=== PATIENT | female | born 1945 | race Caucasian/White ===

== ENCOUNTER 2016-12-22 19:35 | Inpatient (IN) ==
[2016-12-22] MEDS: GLUCOSAMINE GTUBE SCH (22:13)
[2016-12-23 05:23] LABS: Basophils % 0.5 %; Eosinophils # 0.5 K/mcL (0.0-0.6); Eosinophils % 5.3 %; Hemoglobin 14.5 g/dL (11.5-15.4); Immature Granulocytes % 0.8 % (0-4); Lymphocytes # 1.2 K/mcL (0.6-4.6); Lymphocytes % 13.7 %; Mean Corpuscular Hemoglobin 29.2 pg (28.0-33.3); Mean Corpuscular Volume 88.5 fL (83.0-100.0); Mean Platelet Volume 11.6 fL (9.4-12.4); Monocytes # 0.7 K/mcL (0.0-1.3); Monocytes % 8.2 %; Neutrophils # 6.2 K/mcL (1.6-8.9); Platelet Count 296 K/mcL (140-400); Red Blood Count 4.97 M/mcL (3.82-4.97); Red Cell Distribution Width 14.6 % (11.5-14.5); Segmented Neutrophils % 71.5 %
[2016-12-23 05:28] LABS: INR 1.1; Prothrombin Time 11.7 Seconds (9.4-12.1)
[2016-12-23 05:31] LABS: Activated Partial Thrombo Time 31.5 Seconds (26.0-36.0)
[2016-12-23 05:43] LABS: BUN/Creatinine Ratio 35 (6-26); Blood Urea Nitrogen 23 mg/dL (7-20); Calcium 9.7 mg/dL (8.6-10.8); Carbon Dioxide 26 mEq/L (19-29); Chloride 102 mEq/L (98-109); Glucose 124 mg/dL (70-99); Osmolality,Calculated 293 (280-300); Potassium 4.3 mEq/L (3.5-4.5); Sodium 139 mEq/L (136-145); eGFR For African Americans > 60 (> 60); eGFR For Non-African Americans > 60 (> 60)
[2016-12-23] MEDS: *HR* Enoxaparin 40 MG/0.4 ML SYRINGE SQ SCH (05:44)
[2016-12-23] MEDS: GLUCOSAMINE GTUBE SCH ×2 (09:57→14:24)
[2016-12-23] MEDS: Aspirin 81 MG TAB.CHEW GTUBE SCH (09:57)
--- NOTE | 2016-12-23 11:31 | Internal Med History&Physical ---
Date of Encounter: 12/23/16 Time of Encounter: 11:29 Assessment and Plan (1) CVA (cerebral vascular accident) Current visit: Yes Status: Acute Asians here for rehabilitation status post significant CVA Qualifiers: CVA mechanism: occlusion Precerebral and cerebral artery: unspecified precerebral artery Qualified Code(s): I63.20 - Cerebral infarction due to unspecified occlusion or stenosis of unspecified precerebral arteries Internal Medicine - H&P: HPI Chief complaint: Significant CVA with significant deficits Admitted From: Hospital to Hospital Transfer Plans for Post Hospital Care: Home History of present illness: Ms. Rodriguez is a 71 year old female Patient had suffered a stroke with left hemiparesis and dysphagia Past Med Surg Social Fam HX - Past Medical History Medical history: arthritis, CVA, GERD, hyperlipidemia, hypertension Psychiatric history: anxiety, depression - Past Surgical History Surgical History: hysterectomy, other - Social History Smoking Status: Never smoker Smokeless Tobacco Status: No Alcohol use: none Drug use: none - Family History Brother Living Status: Hx Family Cancer: Yes Mother Living Status: Hx Family Cardiac Disorders: Yes Father Living Status: Hx Family Cardiac Disorders: Yes Internal Medicine - H&P: Meds Aspirin [Lo-Dose Aspirin EC] 81 mg GTUBE 12/22/16 [History] Atorvastatin Calcium [Lipitor] 80 mg GTUBE 12/22/16 [History] Gluc HCl/Csa/Collagen/Hyalur A [Glucosamine Chondroitin Cap] 2 cap GTUBE TID 10/31 [History] [place]-3 Acid Ethyl Esters [Lovaza] 1 gm GTUBE TID 12/22/16 [History] Omeprazole [PriLOSEC] 20 mg GTUBE BIDAC 12/22/16 [History] 3 Allergy/AdvReac Type Severity Reaction Status Date / Time No Known Allergies Allergy Verified 12/22/16 19:44 All Systems PM: A 10-system review of systems was performed and is negative for pertinent findings except as documented above in the HPI. - Constitutional Vitals: Temp Pulse Resp BP Pulse Ox 97.8 F 65 18 120/69 93 12/23/16 07:16 12/23/16 07:16 12/23/16 07:16 12/23/16 07:16 12/23/16 07:16 General appearance: Present: cooperative, no acute distress, answers questions appropriately - Head Head exam: Present: atraumatic, normal inspection, normocephalic - Neck Neck exam general surgery: Present: supple, trachea midline. Absent: lymphadenopathy - Respiratory Respiratory exam: Present: CTAB. Absent: accessory muscle use, rales, rhonchi, wheezes - Cardiovascular Cardiovascular exam: Present: RRR, +S1, +S2. Absent: diastolic murmur, gallop, rubs, systolic murmur - GI/Abdominal GI/Abdominal exam: Present: normal bowel sounds, soft, no peritoneal signs. Absent: distended, tenderness - Neurological Exam Neurological exam: Present: abnormal gait, CN II-XII intact, oriented X3, no focal deficits. Absent: pronater drift, facial droop, speech deficit Additional comments: Patient has a fairly dense left hemiparesis. Dysphasia and a half to follow up with PT Internal Med - H&P Results - Labs CBC & Chem 7: 12/23/16 04:40 12/23/16 04:40 Labs: Short CBC 12/23/16 Range/Units 04:40 WBC 8.7 (4.3-11.1) K/mcL Hgb 14.5 (11.5-15.4) g/dL Hct 44.0 (35.3-44.9) % Plt Count 296 (140-400) K/mcL Neutrophils # 6.2 (1.6-8.9) K/mcL BMP 12/23/16 04:40 Sodium 139 Potassium 4.3 Chloride 102 Carbon Dioxide 26 BUN 23 H Creatinine 0.66 Glucose 124 H Calcium 9.7 Lab appears to be safe.
[2016-12-24] MEDS: *HR* Enoxaparin 40 MG/0.4 ML SYRINGE SQ SCH (05:03)
[2016-12-24] MEDS: Aspirin 81 MG TAB.CHEW GTUBE SCH (08:42)
[2016-12-24 18:51] LABS: Hemoglobin A1C 6.1 %
[2016-12-25] MEDS: *HR* Enoxaparin 40 MG/0.4 ML SYRINGE SQ SCH (05:01)
[2016-12-25] MEDS: Aspirin 81 MG TAB.CHEW GTUBE SCH (09:07)
--- NOTE | 2016-12-25 09:22 | Internal Med Progress Note ---
Date of Encounter: 12/24/16 Time of Encounter: 16:55 - Assessment and plan (1) CVA (cerebral vascular accident) Current Visit: Yes Status: Acute Assessment and plan: Continue to work with therapists. Not ready for discharge yet. Qualifiers: CVA mechanism: occlusion Precerebral and cerebral artery: unspecified precerebral artery Qualified Code(s): I63.20 - Cerebral infarction due to unspecified occlusion or stenosis of unspecified precerebral arteries - Time Spent With Patient less than 15 minutes - Subjective Interval history: Would like to go home, otherwise no concern. Worked with therapists a lot today, so feeling a bit worn out. - Constitutional Vitals: Temp Pulse Resp BP Pulse Ox 98.1 F 86 16 117/69 90 12/25/16 09:05 12/25/16 09:05 12/25/16 09:05 12/25/16 09:05 12/25/16 09:05 General appearance: Present: cooperative, no acute distress, answers questions appropriately Exam: Gen: A&Ox3, NAD. HEENT: NCAT. Neck: No palpable lymphadenopathy or thyromegaly. CV: RRR, S1S2. No murmur. Capillary refill < 2 seconds. Pulm: CTAB. No crackles, wheezing, or rhonchi. Abd: (+)BS. NDNT. No guarding, rigidity, or rebound. Neuro: Left hemiplegia. Skin: No rash. Ext: No pitting edema. Internal Medicine: Result - Labs CBC & Chem 7: 12/23/16 04:40 12/23/16 04:40 Labs: reviewed. - ABG Interpretation ABG results: PT/INR, D-dimer PT 11.7 Seconds (9.4-12.1) 12/23/16 04:40 Consult Discharge Plan - Plan Referrals: Obed Martinez DO [Primary Care Provider] -
--- NOTE | 2016-12-25 11:46 | Internal Med Progress Note ---
Date of Encounter: 12/25/16 Time of Encounter: 11:30 - Assessment and plan (1) CVA (cerebral vascular accident) Current Visit: Yes Status: Acute Assessment and plan: Continue to work with therapists. Not ready for discharge yet. Qualifiers: CVA mechanism: occlusion Precerebral and cerebral artery: unspecified precerebral artery Qualified Code(s): I63.20 - Cerebral infarction due to unspecified occlusion or stenosis of unspecified precerebral arteries - Time Spent With Patient less than 15 minutes - Subjective Interval history: Doing well overall. Feeling a little quizzy in stomach, but does not feel she needs anything at this moment. - Constitutional Vitals: Temp Pulse Resp BP Pulse Ox 97.6 F 87 16 108/60 92 12/25/16 11:22 12/25/16 11:22 12/25/16 11:22 12/25/16 11:22 12/25/16 11:22 General appearance: Present: cooperative, no acute distress, answers questions appropriately Exam: Gen: A&Ox3, NAD. HEENT: NCAT. Neck: No palpable lymphadenopathy or thyromegaly. CV: RRR, S1S2. No murmur. Capillary refill < 2 seconds. Pulm: CTAB. No crackles, wheezing, or rhonchi. Abd: (+)BS. NDNT. No guarding, rigidity, or rebound. Neuro: Left hemiplegia. Skin: No rash. Ext: No pitting edema. Internal Medicine: Result - Labs CBC & Chem 7: 12/23/16 04:40 12/23/16 04:40 Labs: Reviewed. - ABG Interpretation ABG results: PT/INR, D-dimer PT 11.7 Seconds (9.4-12.1) 12/23/16 04:40 Consult Discharge Plan - Plan Referrals: Obed Martinez DO [Primary Care Provider] -
[2016-12-26] MEDS: *HR* Enoxaparin 40 MG/0.4 ML SYRINGE SQ SCH (04:50)
[2016-12-26 05:17] LABS: Basophils % 0.4 %; Eosinophils # 0.4 K/mcL (0.0-0.6); Eosinophils % 4.1 %; Hematocrit 44.1 % (35.3-44.9); Hemoglobin 14.8 g/dL (11.5-15.4); Immature Granulocytes % 0.4 % (0-4); Lymphocytes # 1.1 K/mcL (0.6-4.6); Lymphocytes % 11.2 %; Mean Corpuscular HGB Conc 33.6 g/dL (31.6-35.5); Mean Corpuscular Hemoglobin 29.3 pg (28.0-33.3); Mean Corpuscular Volume 87.3 fL (83.0-100.0); Mean Platelet Volume 12.2 fL (9.4-12.4); Monocytes # 0.9 K/mcL (0.0-1.3); Monocytes % 8.9 %; Neutrophils # 7.4 K/mcL (1.6-8.9); Platelet Count 334 K/mcL (140-400); Red Blood Count 5.05 M/mcL (3.82-4.97)
[2016-12-26 05:34] LABS: BUN/Creatinine Ratio 28 (6-26); Blood Urea Nitrogen 19 mg/dL (7-20); Calcium 9.7 mg/dL (8.6-10.8); Carbon Dioxide 25 mEq/L (19-29); Chloride 100 mEq/L (98-109); Glucose 233 mg/dL (70-99); Osmolality,Calculated 288 (280-300); Potassium 4.1 mEq/L (3.5-4.5); Sodium 134 mEq/L (136-145); eGFR For African Americans > 60 (> 60); eGFR For Non-African Americans > 60 (> 60)
[2016-12-26] MEDS: Aspirin 81 MG TAB.CHEW GTUBE SCH (09:21)
--- NOTE | 2016-12-26 13:24 | Internal Med Progress Note ---
Date of Encounter: 12/26/16 Time of Encounter: 13:22 - Assessment and plan (1) CVA (cerebral vascular accident) Current Visit: Yes Status: Acute Assessment and plan: Ratio is has a lack of cognitive processing due to significant strep Qualifiers: CVA mechanism: occlusion Precerebral and cerebral artery: unspecified precerebral artery Qualified Code(s): I63.20 - Cerebral infarction due to unspecified occlusion or stenosis of unspecified precerebral arteries - Time Spent With Patient less than 15 minutes - Subjective Interval history: Patient has had dense hemiparesis and is not cognizant of her deficits. Otherwise though she is awake alert oriented. Stroke is devastating. - Constitutional Vitals: Temp Pulse Resp BP Pulse Ox 98.4 F 82 16 134/80 93 12/26/16 07:46 12/26/16 07:46 12/26/16 07:46 12/26/16 07:46 12/26/16 07:46 General appearance: Present: cooperative, no acute distress, answers questions appropriately - Head Head exam: Present: atraumatic, normal inspection, normocephalic - Respiratory Respiratory exam: Present: CTAB. Absent: accessory muscle use, rales, rhonchi, wheezes - Cardiovascular Cardiovascular exam: Present: RRR, +S1, +S2. Absent: diastolic murmur, gallop, rubs, systolic murmur - GI/Abdominal GI/Abdominal exam: Present: normal bowel sounds, soft, no peritoneal signs. Absent: distended, tenderness Internal Medicine: Result - Labs CBC & Chem 7: 12/26/16 04:50 12/26/16 04:50 Labs: Short CBC 12/26/16 Range/Units 04:50 WBC 9.8 (4.3-11.1) K/mcL Hgb 14.8 (11.5-15.4) g/dL Hct 44.1 (35.3-44.9) % Plt Count 334 (140-400) K/mcL Neutrophils # 7.4 (1.6-8.9) K/mcL BMP 12/26/16 04:50 Sodium 134 L Potassium 4.1 Chloride 100 Carbon Dioxide 25 BUN 19 Creatinine 0.69 Glucose 233 H Calcium 9.7 Labs stable - ABG Interpretation ABG results: PT/INR, D-dimer PT 11.7 Seconds (9.4-12.1) 12/23/16 04:40 Consult Discharge Plan - Plan Referrals: Obed Martinez DO [Primary Care Provider] -
[2016-12-27] MEDS: *HR* Enoxaparin 40 MG/0.4 ML SYRINGE SQ SCH (04:14)
[2016-12-27] MEDS: Tetrahydrozoline 15 ML BOTTLE RIGHT EYE PRN (10:21)
[2016-12-27] MEDS: Aspirin 81 MG TAB.CHEW GTUBE SCH (10:21)
--- NOTE | 2016-12-27 10:43 | Internal Med Progress Note ---
Date of Encounter: 12/27/16 Time of Encounter: 10:41 - Assessment and plan (1) CVA (cerebral vascular accident) Current Visit: Yes Status: Acute Assessment and plan: As we mentioned significant CVA with a dense right hemiparesis. Qualifiers: CVA mechanism: occlusion Precerebral and cerebral artery: unspecified precerebral artery Qualified Code(s): I63.20 - Cerebral infarction due to unspecified occlusion or stenosis of unspecified precerebral arteries - Time Spent With Patient less than 15 minutes - Subjective Interval history: This is a pretty significant ischemic CVA with a very dense right hemiparesis. And the staff has been performing visitors and everyone is that of the left and have her look to the left and respond. She is alert and oriented - Constitutional Vitals: Temp Pulse Resp BP Pulse Ox 98.4 F 81 16 120/71 96 12/27/16 07:00 12/27/16 09:29 12/27/16 09:29 12/27/16 09:29 12/27/16 09:29 General appearance: Present: cooperative, no acute distress, answers questions appropriately - Head Head exam: Present: atraumatic, normal inspection, normocephalic - Neck Neck exam general surgery: Present: supple, trachea midline. Absent: lymphadenopathy - Respiratory Respiratory exam: Present: CTAB. Absent: accessory muscle use, rales, rhonchi, wheezes - Cardiovascular Cardiovascular exam: Present: RRR, +S1, +S2. Absent: diastolic murmur, gallop, rubs, systolic murmur Internal Medicine: Result - Labs CBC & Chem 7: 12/26/16 04:50 12/26/16 04:50 Labs: Labs okay - ABG Interpretation ABG results: PT/INR, D-dimer PT 11.7 Seconds (9.4-12.1) 12/23/16 04:40 Consult Discharge Plan - Plan Referrals: Obed Martinez DO [Primary Care Provider] -
[2016-12-28] MEDS: *HR* Enoxaparin 40 MG/0.4 ML SYRINGE SQ SCH (04:59)
--- NOTE | 2016-12-28 11:40 | Psychological Evaluation ---
Date of Encounter: 12/28/16 Time of Encounter: 11:30 History of Present Illness History of present illness: Ms. Rodriguez is a 71 year old female admitted to [facility] following a right CVA. Ms. Rodriguez was seen on this date to assess her current cognitive and emotional functioning. Past Medical History Medical history: Significant for HTN, hyperlipidemia, arthritis and GERD. - Psychiatric History Additional Psychiatric History: There is no history of psychiatric hospitalization or suicidal ideation. Ms. Rodriguez has a history of anxiety and depression which has been treated by her family physician with [facility]. It was unclear whether she has ever received outpatient counseling. Family Hx: Family history is positive for depression and she reported that her great grandfather committed suicide. Home Medications and Allergies Aspirin [Lo-Dose Aspirin EC] 81 mg GTUBE 12/22/16 [History] Atorvastatin Calcium [Lipitor] 80 mg GTUBE 12/22/16 [History] Gluc HCl/Csa/Collagen/Hyalur A [Glucosamine Chondroitin Cap] 2 cap GTUBE TID 10/31 [History] [place]-3 Acid Ethyl Esters [Lovaza] 1 gm GTUBE TID 12/22/16 [History] Omeprazole [PriLOSEC] 20 mg GTUBE BIDAC 12/22/16 [History] 3 Allergy/AdvReac Type Severity Reaction Status Date / Time No Known Allergies Allergy Verified 12/22/16 19:44 Social History - Social History Social History: Ms. Rodriguez and her have been for 53 years. They have three children (ages 50, 48 and 37). 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 Prior to this hospitalization, she reported that she spent her days reading, tweeting, watching [employer], searching on Facebook and reading her [employer] school lessons. Social support system consists of her , friends and neighbors. She reported that she had a daily routine at home and misses having this structure. - Tobacco Use Smoking Status: Never smoker - Alcohol Use Alcohol Use: none - Drug Use Drug Use: none Cognitive/Emotional Assessment - Cognitive Ability Additional Findings: Ms. Rodriguez was alert, attentive and fully oriented. Speech was clear, fluent and effective. Thought processes were goal-directed but at times she made confused statements. On measures of attention, sentence repetition, confrontational naming and mental arithmetic, she performed within the average range. She also performed within the normal range on a measures of abstract reasoning, auditory comprehension and delayed verbal recall. She did not exhibit problems with encoding, storage or retrieval of new verbal information after a brief delay. On a measure of social judgment, she performed within the severely impaired range. Level of awareness and insight into her physical functioning/deficits was impaired. - Emotional Status Additional Findings: Ms. Rodriguez was pleasant, cooperative and friendly. When this provider entered Ms. Rodriguez's room, she commented to her that this provider was her daughter and made other comments during this interview indicating some confusion. She described her mood as "pretty good" and denied feelings of sadness, irritability or anxiety. She acknowledged that she is experiencing neck, back and left leg pain. She also reported that her sleep is "fair" and noted problems falling and staying asleep. During this interview, mood appeared somber. Affect was flat. Assessment & Plan - Diagnosis (1) Other specified mental disorders due to known physiological condition - Treatment Plan Treatment Plan/Recommendations: Ms. Rodriguez exhibited signs of confusion and impaired awareness/insight into her current deficits/physical functioning. Mood appeared stable without signs of sadness or anxiety. She will be followed as indicated while she is a patient at [facility]. Procedures - Session Time Session Start Time: 11:30 Session Stop Time: 12:00
[2016-12-28] MEDS: Aspirin 81 MG TAB.CHEW GTUBE SCH (11:47)
[2016-12-29] MEDS: *HR* Enoxaparin 40 MG/0.4 ML SYRINGE SQ SCH (04:28)
[2016-12-29] MEDS: Tetrahydrozoline 15 ML BOTTLE RIGHT EYE PRN (04:35)
[2016-12-29] MEDS: Aspirin 81 MG TAB.CHEW GTUBE SCH (10:09)
--- NOTE | 2016-12-29 13:54 | Internal Med Progress Note ---
Date of Encounter: 12/29/16 Time of Encounter: 13:52 - Assessment and plan (1) CVA (cerebral vascular accident) Current Visit: Yes Status: Acute Assessment and plan: Patient is being worked with all modalities. PT OT TR and speech. She also has seen by the staff psychologist. Qualifiers: CVA mechanism: occlusion Precerebral and cerebral artery: unspecified precerebral artery Qualified Code(s): I63.20 - Cerebral infarction due to unspecified occlusion or stenosis of unspecified precerebral arteries - Time Spent With Patient less than 15 minutes - Subjective Interval history: This is a pretty significant ischemic CVA with a very dense right hemiparesis. And the staff has been performing visitors and everyone is that of the left and have her look to the left and respond. She is alert and oriented - Constitutional Vitals: Temp Pulse Resp BP Pulse Ox 97.7 F 75 18 118/62 96 12/29/16 07:00 12/29/16 11:54 12/29/16 11:54 12/29/16 11:54 12/29/16 11:54 General appearance: Present: cooperative, no acute distress, answers questions appropriately - Head Head exam: Present: atraumatic, normal inspection, normocephalic - Neck Neck exam general surgery: Present: supple, trachea midline. Absent: lymphadenopathy - Respiratory Respiratory exam: Present: CTAB. Absent: accessory muscle use, rales, rhonchi, wheezes Internal Medicine: Result - Labs CBC & Chem 7: 12/26/16 04:50 12/26/16 04:50 Labs: Lab is stable - ABG Interpretation ABG results: PT/INR, D-dimer PT 11.7 Seconds (9.4-12.1) 12/23/16 04:40 Consult Discharge Plan - Plan Referrals: Obed Martinez, [Primary Care Provider] -
[2016-12-30] MEDS: Tetrahydrozoline 15 ML BOTTLE RIGHT EYE PRN (01:57)
[2016-12-30] MEDS: *HR* Enoxaparin 40 MG/0.4 ML SYRINGE SQ SCH (04:10)
[2016-12-30] MEDS: Aspirin 81 MG TAB.CHEW GTUBE SCH (11:35)
--- NOTE | 2016-12-30 14:04 | Internal Med Progress Note ---
Date of Encounter: 12/30/16 Time of Encounter: 14:02 - Assessment and plan (1) CVA (cerebral vascular accident) Current Visit: Yes Status: Acute Assessment and plan: Patient is here for all modalities of rehabilitation due to severe ischemic CVA Qualifiers: CVA mechanism: occlusion Precerebral and cerebral artery: unspecified precerebral artery Qualified Code(s): I63.20 - Cerebral infarction due to unspecified occlusion or stenosis of unspecified precerebral arteries - Time Spent With Patient less than 15 minutes - Subjective Interval history: This is a pretty significant ischemic CVA with a very dense right hemiparesis. And the staff has been performing visitors and everyone is that of the left and have her look to the left and respond. She is alert and oriented. - Constitutional Vitals: Temp Pulse Resp BP Pulse Ox 97.8 F 79 18 119/64 93 12/30/16 07:35 12/30/16 07:35 12/30/16 07:35 12/30/16 07:35 12/30/16 07:35 General appearance: Present: cooperative, no acute distress, answers questions appropriately - Head Head exam: Present: atraumatic, normal inspection, normocephalic - Neck Neck exam general surgery: Present: supple, trachea midline. Absent: lymphadenopathy - Respiratory Respiratory exam: Present: CTAB. Absent: accessory muscle use, rales, rhonchi, wheezes - Cardiovascular Cardiovascular exam: Present: RRR, +S1, +S2. Absent: diastolic murmur, gallop, rubs, systolic murmur - Neurological Exam Neurological exam: Present: CN II-XII intact, oriented X3, no focal deficits. Absent: pronater drift, facial droop, speech deficit Additional comments: Not much change this point. Internal Medicine: Result - Labs CBC & Chem 7: 12/26/16 04:50 12/26/16 04:50 Labs: Lab looks good - ABG Interpretation ABG results: PT/INR, D-dimer PT 11.7 Seconds (9.4-12.1) 12/23/16 04:40 Consult Discharge Plan - Plan Referrals: Obed Martinez, [Primary Care Provider] -
[2016-12-30] MEDS: MOM Conc 10 ML UD.LIQ GTUBE SCH (21:35)
[2016-12-31] MEDS: *HR* Enoxaparin 40 MG/0.4 ML SYRINGE SQ SCH (05:35)
--- NOTE | 2016-12-31 09:50 | Internal Med Progress Note ---
Date of Encounter: 12/31/16 Time of Encounter: 09:48 - Assessment and plan (1) CVA (cerebral vascular accident) Current Visit: Yes Status: Acute Assessment and plan: Ding fine . Trying to sleep no acute distress in rheb Continue present treatment Qualifiers: CVA mechanism: occlusion Precerebral and cerebral artery: unspecified precerebral artery Qualified Code(s): I63.20 - Cerebral infarction due to unspecified occlusion or stenosis of unspecified precerebral arteries - Subjective Interval history: Seen for the first time as cross coverage She is doing fine now no acute issues in bed and trying to sleep Denies any SOB or chest pain - Constitutional Vitals: Temp Pulse Resp BP Pulse Ox 98.4 F 76 18 113/63 93 12/31/16 07:42 12/31/16 07:42 12/31/16 07:42 12/31/16 07:42 12/31/16 07:42 General appearance: Present: cooperative, pleasant, no acute distress, answers questions appropriately - Head Head exam: Present: atraumatic - Eye Eye exam: Present: EOMI, PERRL. Absent: scleral icterus Pupils: Present: PERRL - Neck Neck exam general surgery: Present: supple. Absent: tenderness, nuchal rigidity - Respiratory Respiratory exam: Present: CTAB. Absent: chest wall tenderness, respiratory distress, rhonchi, stridor, wheezes - Cardiovascular Cardiovascular exam: Present: RRR, +S1, +S2. Absent: irregular rhythm, JVD, tachycardia - GI/Abdominal GI/Abdominal exam: Present: normal bowel sounds, soft. Absent: distended, guarding, tenderness, no peritoneal signs Additional comments: Obese Soft BS + Internal Medicine: Result - Labs CBC & Chem 7: 12/26/16 04:50 12/26/16 04:50 - ABG Interpretation ABG results: PT/INR, D-dimer PT 11.7 Seconds (9.4-12.1) 12/23/16 04:40 Consult Discharge Plan - Plan Referrals: Obed Martinez DO [Primary Care Provider] -
[2016-12-31] MEDS: Aspirin 81 MG TAB.CHEW GTUBE SCH (10:44)
[2016-12-31] MEDS: MOM Conc 10 ML UD.LIQ GTUBE SCH (21:42)
[2016-12-31] MEDS: Tetrahydrozoline 15 ML BOTTLE RIGHT EYE PRN (21:53)
[2017-01-01] MEDS: Tetrahydrozoline 15 ML BOTTLE RIGHT EYE PRN (04:00)
[2017-01-01] MEDS: *HR* Enoxaparin 40 MG/0.4 ML SYRINGE SQ SCH (05:15)
--- NOTE | 2017-01-01 08:47 | Internal Med Progress Note ---
Date of Encounter: 01/01/17 Time of Encounter: 08:45 - Assessment and plan (1) CVA (cerebral vascular accident) Current Visit: Yes Status: Acute Assessment and plan: stable . in rehab . labs scheduled for tomorrow Give Tylenol for back pain regular dose for 24 hours Qualifiers: CVA mechanism: occlusion Precerebral and cerebral artery: unspecified precerebral artery Qualified Code(s): I63.20 - Cerebral infarction due to unspecified occlusion or stenosis of unspecified precerebral arteries (2) Hyperlipidemia Current Visit: Yes Status: Acute Assessment and plan: on meds stable no new change Qualifiers: Hyperlipidemia type: unspecified Qualified Code(s): E78.5 - Hyperlipidemia , unspecified - Subjective Interval history: Comparing of back pain lying on her side no other complains - Constitutional Vitals: Temp Pulse Resp BP Pulse Ox 97.7 F 73 18 132/70 96 01/01/17 07:59 01/01/17 07:59 01/01/17 07:59 01/01/17 07:59 01/01/17 07:59 General appearance: Present: cooperative, pleasant, no acute distress, answers questions appropriately - Head Head exam: Present: atraumatic - Eye Eye exam: Present: EOMI, PERRL Pupils: Present: PERRL - Neck Neck exam general surgery: Present: supple. Absent: tenderness, nuchal rigidity - Respiratory Respiratory exam: Present: CTAB. Absent: respiratory distress, rhonchi, stridor , wheezes - Cardiovascular Cardiovascular exam: Present: RRR, +S1, +S2. Absent: diastolic murmur, irregular rhythm, JVD, systolic murmur - GI/Abdominal GI/Abdominal exam: Present: normal bowel sounds, soft. Absent: distended, rebound, rigid - Neurological Exam Neurological exam: Present: alert, facial droop. Absent: speech deficit Additional comments: left side weakness no new change Internal Medicine: Result - Labs CBC & Chem 7: 12/26/16 04:50 12/26/16 04:50 - ABG Interpretation ABG results: PT/INR, D-dimer PT 11.7 Seconds (9.4-12.1) 12/23/16 04:40 Consult Discharge Plan - Plan Referrals: Obed Martinez DO [Primary Care Provider] -
[2017-01-01] MEDS: Aspirin 81 MG TAB.CHEW GTUBE SCH (10:00)
[2017-01-01] MEDS: MOM Conc 10 ML UD.LIQ GTUBE SCH (21:40)
[2017-01-02] MEDS: *HR* Enoxaparin 40 MG/0.4 ML SYRINGE SQ SCH (05:01)
[2017-01-02 05:22] LABS: Basophils % 0.6 %; Eosinophils # 0.3 K/mcL (0.0-0.6); Eosinophils % 5.5 %; Hematocrit 42.1 % (35.3-44.9); Hemoglobin 13.9 g/dL (11.5-15.4); Immature Granulocytes % 0.4 % (0-4); Lymphocytes # 1.3 K/mcL (0.6-4.6); Lymphocytes % 23.9 %; Mean Corpuscular Hemoglobin 29.4 pg (28.0-33.3); Mean Corpuscular Volume 89.2 fL (83.0-100.0); Mean Platelet Volume 11.4 fL (9.4-12.4); Monocytes # 0.5 K/mcL (0.0-1.3); Monocytes % 9.3 %; Neutrophils # 3.2 K/mcL (1.6-8.9); Platelet Count 323 K/mcL (140-400); Red Blood Count 4.72 M/mcL (3.82-4.97); Red Cell Distribution Width 15.2 % (11.5-14.5); Segmented Neutrophils % 60.3 %
[2017-01-02 05:35] LABS: BUN/Creatinine Ratio 27 (6-26); Blood Urea Nitrogen 19 mg/dL (7-20); Calcium 9.6 mg/dL (8.6-10.8); Carbon Dioxide 32 mEq/L (19-29); Chloride 99 mEq/L (98-109); Glucose 133 mg/dL (70-99); Osmolality,Calculated 294 (280-300); Potassium 3.6 mEq/L (3.5-4.5); Sodium 140 mEq/L (136-145); eGFR For African Americans > 60 (> 60); eGFR For Non-African Americans > 60 (> 60)
[2017-01-02] MEDS: Aspirin 81 MG TAB.CHEW GTUBE SCH (08:26)
--- NOTE | 2017-01-02 14:46 | Internal Med Progress Note ---
Date of Encounter: 01/02/17 Time of Encounter: 14:44 - Assessment and plan (1) CVA (cerebral vascular accident) Current Visit: Yes Status: Acute Assessment and plan: Patient had a very significant cerebrovascular accident with hemiplegia and is totally dependent. Please see PT OT and TR notes and speech. Qualifiers: CVA mechanism: occlusion Precerebral and cerebral artery: unspecified precerebral artery Qualified Code(s): I63.20 - Cerebral infarction due to unspecified occlusion or stenosis of unspecified precerebral arteries - Time Spent With Patient less than 15 minutes - Subjective Interval history: This is a pretty significant ischemic CVA with a very dense right hemiparesis. And the staff has been performing visitors and everyone is that of the left and have her look to the left and respond. She is alert and oriented. - Constitutional Vitals: Temp Pulse Resp BP Pulse Ox 97.4 F L 66 16 141/79 94 01/02/17 06:57 01/02/17 06:57 01/02/17 06:57 01/02/17 06:57 01/02/17 06:57 General appearance: Present: cooperative, pleasant, no acute distress, answers questions appropriately - Head Head exam: Present: atraumatic, normal inspection, normocephalic - Neck Neck exam general surgery: Present: supple, trachea midline. Absent: lymphadenopathy - Respiratory Respiratory exam: Present: CTAB. Absent: accessory muscle use, rales, rhonchi, wheezes - Cardiovascular Cardiovascular exam: Present: RRR, +S1, +S2. Absent: diastolic murmur, gallop, rubs, systolic murmur - Neurological Exam Neurological exam: Present: CN II-XII intact, oriented X3, no focal deficits. Absent: pronater drift, facial droop, speech deficit Additional comments: Not much change in terms of function. Internal Medicine: Result - Labs CBC & Chem 7: 01/02/17 04:50 01/02/17 04:50 Labs: Short CBC 01/02/17 Range/Units 04:50 WBC 5.3 (4.3-11.1) K/mcL Hgb 13.9 (11.5-15.4) g/dL Hct 42.1 (35.3-44.9) % Plt Count 323 (140-400) K/mcL Neutrophils # 3.2 (1.6-8.9) K/mcL BMP 01/02/17 04:50 Sodium 140 Potassium 3.6 Chloride 99 Carbon Dioxide 32 H BUN 19 Creatinine 0.70 Glucose 133 H Calcium 9.6 Stable at - ABG Interpretation ABG results: PT/INR, D-dimer PT 11.7 Seconds (9.4-12.1) 12/23/16 04:40 Consult Discharge Plan - Plan Referrals: Obed Martinez DO [Primary Care Provider] -
[2017-01-02] MEDS: MOM Conc 10 ML UD.LIQ GTUBE SCH (19:42)
[2017-01-03] MEDS: *HR* Enoxaparin 40 MG/0.4 ML SYRINGE SQ SCH (05:21)
[2017-01-03] MEDS: Aspirin 81 MG TAB.CHEW GTUBE SCH (09:30)
--- NOTE | 2017-01-03 13:19 | Internal Med Progress Note ---
Date of Encounter: 01/27/17 Time of Encounter: 14:08 - Assessment and plan (1) CVA (cerebral vascular accident) Current Visit: Yes Status: Acute Assessment and plan: She denies seem to be a CVA she is now showing progress but she was terminated by the insurance. She would now be transferred to [facility] Qualifiers: CVA mechanism: occlusion Precerebral and cerebral artery: unspecified precerebral artery Qualified Code(s): I63.20 - Cerebral infarction due to unspecified occlusion or stenosis of unspecified precerebral arteries - Time Spent With Patient less than 15 minutes - Subjective Interval history: This is a pretty significant ischemic CVA with a very dense right hemiparesis. And the staff has been performing visitors and everyone is that of the left and have her look to the left and respond. She is alert and oriented. There targetoid Meza out because she had trouble voiding before. - Constitutional Vitals: Temp Pulse Resp BP Pulse Ox 97.9 F 56 16 142/92 93 01/03/17 07:31 01/03/17 07:31 01/03/17 07:31 01/03/17 07:31 01/03/17 07:31 General appearance: Present: cooperative, pleasant, no acute distress, answers questions appropriately Internal Medicine: Result - Labs CBC & Chem 7: 01/23/17 05:25 01/23/17 05:25 Labs: Lab is stable - ABG Interpretation ABG results: PT/INR, D-dimer PT 11.7 Seconds (9.4-12.1) 12/23/16 04:40 Consult Discharge Plan - Plan Instructions: Ischemic Stroke (DC) Referrals: Obed Martinez DO [Primary Care Provider] -
[2017-01-03] MEDS: MOM Conc 10 ML UD.LIQ GTUBE SCH (21:51)
[2017-01-04] MEDS: *HR* Enoxaparin 40 MG/0.4 ML SYRINGE SQ SCH (06:36)
[2017-01-04] MEDS: Aspirin 81 MG TAB.CHEW GTUBE SCH (07:40)
--- NOTE | 2017-01-04 15:09 | Internal Med Progress Note ---
Date of Encounter: 01/04/17 Time of Encounter: 15:07 - Assessment and plan (1) CVA (cerebral vascular accident) Current Visit: Yes Status: Acute Assessment and plan: Patient has significant ischemic CVA Qualifiers: CVA mechanism: occlusion Precerebral and cerebral artery: unspecified precerebral artery Qualified Code(s): I63.20 - Cerebral infarction due to unspecified occlusion or stenosis of unspecified precerebral arteries - Time Spent With Patient less than 15 minutes - Subjective Interval history: Echo shows some very modest improvement. Please check nursing notes and since DC the Meza see if patient is voiding. - Constitutional Vitals: Temp Pulse Resp BP Pulse Ox 98.0 F 59 16 99/64 93 01/04/17 07:53 01/04/17 07:53 01/04/17 07:53 01/04/17 07:53 01/04/17 07:53 General appearance: Present: cooperative, pleasant, no acute distress, answers questions appropriately - Head Head exam: Present: atraumatic, normocephalic - Neck Neck exam general surgery: Present: supple, trachea midline. Absent: lymphadenopathy - Respiratory Respiratory exam: Present: CTAB. Absent: accessory muscle use, rales, rhonchi, wheezes - Cardiovascular Cardiovascular exam: Present: RRR, +S1, +S2. Absent: diastolic murmur, gallop, rubs, systolic murmur Internal Medicine: Result - Labs CBC & Chem 7: 01/02/17 04:50 01/02/17 04:50 Labs: Lab is stable - ABG Interpretation ABG results: PT/INR, D-dimer PT 11.7 Seconds (9.4-12.1) 12/23/16 04:40 - Impressions Impressions Videofluoroscopic Swallow 01/04/17 09:15 IMPRESSION: Penetration of thin liquids and nectar thick liquids as described above. No aspiration observed. Please see separate speech pathology report for full discussion of findings and recommendations. D/ / 01/04/2017 10:26:40 Khadar Pradhan MD / jesse Interpreting Provider: Khadar Pradhan MD Consult Discharge Plan - Plan Referrals: Obed Martinez, [Primary Care Provider] -
--- NOTE | 2017-01-04 15:56 | Rehab Psychology Progress Note ---
Date of Encounter: 01/04/17 Time of Encounter: 11:30 Subjective - Patient Report Patient Report: Ms. Rodriguez reported that she has felt "cranky" and "irritated" by her slow progress in therapy. She reported that she needs assistance with standing, transfers, dressing and toileting. She acknowledged that it is very difficult for her to need assistance but she recognizes that when she tries to "help" the staff, she makes it worse and increases her risk of falling. - Symptoms Symptoms: Mood depressed/discouraged. Affect was restricted and spoke in a flat tone of voice. Insight/awareness has improved. She was able to report that she is using a technique (focusing on a facial area of the person with whom she is conversing) to maintain an upright position. Objective - Mental Status Mental Status Changes: Ms. Rodriguez was alert, attentive, pleasant and cooperative. She exhibited increased insight/awareness and was able to recall recent goals/gains in her therapy and recent activities she has completed in rehab. She was noted to confabulate at times and made statements/comments that were not related to the topic at hand. Ms. 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 We discussed stroke recovery and she was provided with educational information and encouragement. Assessment and Plan - Diagnosis (1) Other specified mental disorders due to known physiological condition - Response to Treatment Response to Treatment: Improved - Treatment Plan Treatment Plan Recommendations: Continue Current Plan/Goals (Will be followed by rehabilitation psychology as indicated while she is a patient at [facility].) Procedures - Intervention Interventions: Supportive Counseling - Modality Modality: Psychotherapy 30 minutes - Session Time Session Start Time: 11:30 Session Stop Time: 12:00
[2017-01-04] MEDS: MOM Conc 10 ML UD.LIQ GTUBE SCH (20:09)
[2017-01-05] MEDS: *HR* Enoxaparin 40 MG/0.4 ML SYRINGE SQ SCH (06:05)
[2017-01-05] MEDS: Aspirin 81 MG TAB.CHEW GTUBE SCH (07:47)
--- NOTE | 2017-01-05 13:44 | Internal Med Progress Note ---
Date of Encounter: 01/05/17 Time of Encounter: 13:42 - Assessment and plan (1) CVA (cerebral vascular accident) Current Visit: Yes Status: Acute Assessment and plan: Asians here for CVA rehabilitation. Qualifiers: CVA mechanism: occlusion Precerebral and cerebral artery: unspecified precerebral artery Qualified Code(s): I63.20 - Cerebral infarction due to unspecified occlusion or stenosis of unspecified precerebral arteries - Time Spent With Patient less than 15 minutes - Subjective Interval history: Patient's 38 without difficulty #1 and #2 she had some large orally with speech therapist. And where going to rearrange her tube feedings boluses so that they do not come my before meals. So if she eats less than 50% we will do the boluses after being - Constitutional Vitals: Temp Pulse Resp BP Pulse Ox 97.8 F 63 16 130/78 93 01/05/17 07:00 01/05/17 07:00 01/05/17 07:00 01/05/17 07:00 01/05/17 07:00 General appearance: Present: cooperative, pleasant, no acute distress, answers questions appropriately - Head Head exam: Present: atraumatic, normal inspection, normocephalic - Neck Neck exam general surgery: Present: supple, trachea midline. Absent: lymphadenopathy - Respiratory Respiratory exam: Present: CTAB. Absent: accessory muscle use, rales, rhonchi, wheezes - Cardiovascular Cardiovascular exam: Present: RRR, +S1, +S2. Absent: diastolic murmur, gallop, rubs, systolic murmur Internal Medicine: Result - Labs CBC & Chem 7: 01/02/17 04:50 01/02/17 04:50 Labs: Labs stable - ABG Interpretation ABG results: PT/INR, D-dimer PT 11.7 Seconds (9.4-12.1) 12/23/16 04:40 - Impressions Impressions Videofluoroscopic Swallow 01/04/17 09:15 IMPRESSION: Penetration of thin liquids and nectar thick liquids as described above. No aspiration observed. Please see separate speech pathology report for full discussion of findings and recommendations. D/ / 01/04/2017 10:26:40 Khadar Pradhan MD / jesse Interpreting Provider: Khadar Pradhan MD Consult Discharge Plan - Plan Referrals: Obed Martinez, [Primary Care Provider] -
[2017-01-05] MEDS ORDERED: Acetaminophen 325 MG TABLET PO PRN (21:57)
[2017-01-05] MEDS ORDERED: MOM Conc 10 ML UD.LIQ GTUBE PRN (21:59)
[2017-01-05] MEDS: MOM Conc 10 ML UD.LIQ GTUBE SCH (22:03)
[2017-01-06] MEDS: *HR* Enoxaparin 40 MG/0.4 ML SYRINGE SQ SCH (05:30)
[2017-01-06] MEDS: Aspirin 81 MG TAB.CHEW GTUBE SCH (09:02)
--- NOTE | 2017-01-06 13:56 | Internal Med Progress Note ---
Date of Encounter: 01/06/17 Time of Encounter: 13:54 - Assessment and plan (1) CVA (cerebral vascular accident) Current Visit: Yes Status: Acute Assessment and plan: She denies significant ischemic CVA in which she is here for rehabilitation. Qualifiers: CVA mechanism: occlusion Precerebral and cerebral artery: unspecified precerebral artery Qualified Code(s): I63.20 - Cerebral infarction due to unspecified occlusion or stenosis of unspecified precerebral arteries - Time Spent With Patient less than 15 minutes - Subjective Interval history: Rut continues to progress. She is now eating solid food under supervision of speech pathology. This is significant M physiologic improvement. Patient continues to work with the therapist. And is cooperating. - Constitutional Vitals: Temp Pulse Resp BP Pulse Ox 98.6 F 68 16 116/58 93 01/06/17 07:31 01/06/17 07:31 01/06/17 07:31 01/06/17 09:37 01/06/17 07:31 General appearance: Present: cooperative, pleasant, no acute distress, answers questions appropriately - Head Head exam: Present: atraumatic, normal inspection, normocephalic - Neck Neck exam general surgery: Present: supple, trachea midline. Absent: lymphadenopathy - Respiratory Respiratory exam: Present: CTAB. Absent: accessory muscle use, rales, rhonchi, wheezes - Cardiovascular Cardiovascular exam: Present: RRR, +S1, +S2. Absent: diastolic murmur, gallop, rubs, systolic murmur - GI/Abdominal GI/Abdominal exam: Present: normal bowel sounds, soft, no peritoneal signs. Absent: distended, tenderness Internal Medicine: Result - Labs CBC & Chem 7: 01/02/17 04:50 01/02/17 04:50 Labs: Lab is stable - ABG Interpretation ABG results: PT/INR, D-dimer PT 11.7 Seconds (9.4-12.1) 12/23/16 04:40 Consult Discharge Plan - Plan Referrals: Obed Martinez DO [Primary Care Provider] -
[2017-01-07] MEDS: *HR* Enoxaparin 40 MG/0.4 ML SYRINGE SQ SCH (06:10)
[2017-01-07] MEDS: Aspirin 81 MG TAB.CHEW GTUBE SCH (07:58)
--- NOTE | 2017-01-07 15:42 | Internal Med Progress Note ---
Date of Encounter: 01/07/17 Time of Encounter: 15:00 - Assessment and plan (1) CVA (cerebral vascular accident) Current Visit: Yes Status: Acute Assessment and plan: Continue to work with therapists. Qualifiers: CVA mechanism: occlusion Precerebral and cerebral artery: unspecified precerebral artery Qualified Code(s): I63.20 - Cerebral infarction due to unspecified occlusion or stenosis of unspecified precerebral arteries - Time Spent With Patient less than 15 minutes - Subjective Interval history: Working with therapists, feeling okay. - Constitutional Vitals: Temp Pulse Resp BP Pulse Ox 98.2 F 77 16 141/78 97 01/07/17 06:00 01/07/17 06:00 01/07/17 06:00 01/07/17 06:00 01/07/17 06:00 General appearance: Present: cooperative, pleasant, no acute distress, answers questions appropriately Exam: Gen: A&Ox3, NAD. HEENT: NCAT. Neck: No palpable lymphadenopathy or thyromegaly. CV: RRR, S1S2. No murmur. Capillary refill < 2 seconds. Pulm: CTAB. Abd: (+)BS. NDNT. Neuro: Left hemiplegia. Skin: No rash. Ext: No pitting edema. Internal Medicine: Result - Labs CBC & Chem 7: 01/02/17 04:50 01/02/17 04:50 - ABG Interpretation ABG results: PT/INR, D-dimer PT 11.7 Seconds (9.4-12.1) 12/23/16 04:40 Consult Discharge Plan - Plan Referrals: Obed Martinez DO [Primary Care Provider] -
[2017-01-08] MEDS: *HR* Enoxaparin 40 MG/0.4 ML SYRINGE SQ SCH (05:20)
[2017-01-08] MEDS: Aspirin 81 MG TAB.CHEW GTUBE SCH (07:50)
--- NOTE | 2017-01-08 12:55 | Internal Med Progress Note ---
Date of Encounter: 01/08/17 Time of Encounter: 12:40 - Assessment and plan (1) CVA (cerebral vascular accident) Current Visit: Yes Status: Acute Assessment and plan: Continue to work with therapists. Qualifiers: CVA mechanism: occlusion Precerebral and cerebral artery: unspecified precerebral artery Qualified Code(s): I63.20 - Cerebral infarction due to unspecified occlusion or stenosis of unspecified precerebral arteries - Time Spent With Patient less than 15 minutes - Subjective Interval history: Working with therapists, feeling okay, had fun with visitors. - Constitutional Vitals: Temp Pulse Resp BP Pulse Ox 98.4 F 75 16 118/69 92 01/08/17 07:18 01/08/17 07:18 01/08/17 07:18 01/08/17 07:18 01/08/17 07:18 General appearance: Present: cooperative, pleasant, no acute distress, answers questions appropriately Exam: Gen: A&Ox3, NAD. HEENT: NCAT. Neck: No palpable lymphadenopathy or thyromegaly. CV: RRR, S1S2. No murmur. Capillary refill < 2 seconds. Pulm: CTAB. Abd: (+)BS. NDNT. Neuro: Left hemiplegia. Skin: No rash. Ext: No pitting edema. Internal Medicine: Result - Labs CBC & Chem 7: 01/02/17 04:50 01/02/17 04:50 - ABG Interpretation ABG results: PT/INR, D-dimer PT 11.7 Seconds (9.4-12.1) 12/23/16 04:40 Consult Discharge Plan - Plan Referrals: Obed Martinez DO [Primary Care Provider] -
[2017-01-09] MEDS: *HR* Enoxaparin 40 MG/0.4 ML SYRINGE SQ SCH (05:09)
[2017-01-09 06:01] LABS: Basophils % 0.4 %; Eosinophils # 0.4 K/mcL (0.0-0.6); Eosinophils % 7.4 %; Hematocrit 42.6 % (35.3-44.9); Hemoglobin 14.2 g/dL (11.5-15.4); Immature Granulocytes % 0.2 % (0-4); Lymphocytes # 1.2 K/mcL (0.6-4.6); Lymphocytes % 21.5 %; Mean Corpuscular HGB Conc 33.3 g/dL (31.6-35.5); Mean Corpuscular Hemoglobin 29.5 pg (28.0-33.3); Mean Corpuscular Volume 88.6 fL (83.0-100.0); Mean Platelet Volume 11.2 fL (9.4-12.4); Monocytes # 0.6 K/mcL (0.0-1.3); Monocytes % 10.7 %; Neutrophils # 3.2 K/mcL (1.6-8.9); Platelet Count 223 K/mcL (140-400); Red Blood Count 4.81 M/mcL (3.82-4.97); Red Cell Distribution Width 15.6 % (11.5-14.5); Segmented Neutrophils % 59.8 %
[2017-01-09 06:17] LABS: BUN/Creatinine Ratio 27 (6-26); Blood Urea Nitrogen 17 mg/dL (7-20); Calcium 9.8 mg/dL (8.6-10.8); Carbon Dioxide 26 mEq/L (19-29); Chloride 103 mEq/L (98-109); Glucose 136 mg/dL (70-99); Osmolality,Calculated 290 (280-300); Potassium 3.9 mEq/L (3.5-4.5); Sodium 138 mEq/L (136-145); eGFR For African Americans > 60 (> 60); eGFR For Non-African Americans > 60 (> 60)
[2017-01-09] MEDS: Aspirin 81 MG TAB.CHEW GTUBE SCH (09:55)
--- NOTE | 2017-01-09 14:44 | Internal Med Progress Note ---
Date of Encounter: 01/09/17 Time of Encounter: 14:42 - Assessment and plan (1) CVA (cerebral vascular accident) Current Visit: Yes Status: Acute Assessment and plan: Patient receiving treatment from all of her therapist Qualifiers: CVA mechanism: occlusion Precerebral and cerebral artery: unspecified precerebral artery Qualified Code(s): I63.20 - Cerebral infarction due to unspecified occlusion or stenosis of unspecified precerebral arteries - Time Spent With Patient less than 15 minutes - Subjective Interval history: uRt continues to progress. She is now eating solid food under supervision of speech pathology. This is significant M physiologic improvement. Patient continues to work with the therapist. And is cooperating. Urine is dark and smelly and the medicine if her UA. Staff feels she is little bit different mentally so we will rule out a UTI - Constitutional Vitals: Temp Pulse Resp BP Pulse Ox 97.8 F 78 18 119/66 93 01/09/17 07:09 01/09/17 10:20 01/09/17 10:20 01/09/17 10:20 01/09/17 10:20 General appearance: Present: cooperative, pleasant, no acute distress, answers questions appropriately - Head Head exam: Present: atraumatic, normal inspection, normocephalic - Respiratory Respiratory exam: Present: CTAB. Absent: accessory muscle use, rales, rhonchi, wheezes - Cardiovascular Cardiovascular exam: Present: RRR, +S1, +S2. Absent: diastolic murmur, gallop, rubs, systolic murmur Internal Medicine: Result - Labs CBC & Chem 7: 01/09/17 04:40 01/09/17 04:40 Labs: Short CBC 01/09/17 Range/Units 04:40 WBC 5.4 (4.3-11.1) K/mcL Hgb 14.2 (11.5-15.4) g/dL Hct 42.6 (35.3-44.9) % Plt Count 223 (140-400) K/mcL Neutrophils # 3.2 (1.6-8.9) K/mcL BMP 01/09/17 04:40 Sodium 138 Potassium 3.9 Chloride 103 Carbon Dioxide 26 BUN 17 Creatinine 0.62 Glucose 136 H Calcium 9.8 It looks like the lab is stable - ABG Interpretation ABG results: PT/INR, D-dimer PT 11.7 Seconds (9.4-12.1) 12/23/16 04:40 Consult Discharge Plan - Plan Referrals: Obed Martinez DO [Primary Care Provider] -
[2017-01-09 15:20] LABS: Bilirubin,Urine Negative (Negative); Blood,Urine Small (Negative); Clarity,Urine Slightly Cloudy (Clear); Color,Urine Yellow (Yellow); Glucose,Urine (UA) Normal (Normal); Ketones,Urine Negative (Negative); Leukocyte Esterase,Urine Large (Negative); Nitrite,Urine Positive (Negative); Protein,Urine Trace mg/dL (Neg-Trace); Specific Gravity,Urine 1.015 (1.010-1.025); Urobilinogen,Urine Normal (Normal)
[2017-01-09 15:24] LABS: Bacteria,Urine Many per hpf (None-Few); WBC,Urine 50-100 per hpf (0-3)
[2017-01-09 15:25] LABS: RBC,Urine 0-3 per hpf (0-3); Transitional Epi Cells,Urine Few per hpf (None-Few)
[2017-01-10] MEDS: *HR* Enoxaparin 40 MG/0.4 ML SYRINGE SQ SCH (05:52)
[2017-01-10] MEDS: Aspirin 81 MG TAB.CHEW GTUBE SCH (08:25)
--- NOTE | 2017-01-10 13:24 | Internal Med Progress Note ---
Date of Encounter: 01/10/17 Time of Encounter: 13:21 - Assessment and plan (1) CVA (cerebral vascular accident) Current Visit: Yes Status: Acute Assessment and plan: Patient's here for significant ischemic CVA. She is getting all modalities of therapy Qualifiers: CVA mechanism: occlusion Precerebral and cerebral artery: unspecified precerebral artery Qualified Code(s): I63.20 - Cerebral infarction due to unspecified occlusion or stenosis of unspecified precerebral arteries - Time Spent With Patient less than 15 minutes - Subjective Interval history: Rut continues to progress. She is now eating solid food under supervision of speech pathology. This is significant M physiologic improvement. Patient continues to work with the therapist. And is cooperating. Urine is dark and smelly and the medicine if her UA. Staff feels she is little bit different mentally so we will rule out a UTI. Check UA culture results. - Constitutional Vitals: Temp Pulse Resp BP Pulse Ox 97.9 F 73 18 112/72 93 01/10/17 07:37 01/10/17 07:37 01/10/17 07:37 01/10/17 07:37 01/10/17 07:37 General appearance: Present: cooperative, pleasant, no acute distress, answers questions appropriately - Head Head exam: Present: atraumatic, normal inspection, normocephalic - Neck Neck exam general surgery: Present: supple, trachea midline. Absent: lymphadenopathy - Respiratory Respiratory exam: Present: CTAB. Absent: accessory muscle use, rales, rhonchi, wheezes - Cardiovascular Cardiovascular exam: Present: RRR, +S1, +S2. Absent: diastolic murmur, gallop, rubs, systolic murmur Internal Medicine: Result - Labs CBC & Chem 7: 01/09/17 04:40 01/09/17 04:40 Labs: Urine 01/09/17 Range/Units 15:16 Urine Color Yellow (Yellow) Urine Clarity Slightly Cloudy A (Clear) Urine pH 7.0 (5.0-8.0) pH Units Ur Specific [place] 1.015 (1.010-1.025) Urine Protein Trace (Neg-Trace) mg/dL Urine Glucose (UA) Normal (Normal) mg/dL Lab is stable - ABG Interpretation ABG results: PT/INR, D-dimer PT 11.7 Seconds (9.4-12.1) 12/23/16 04:40 Consult Discharge Plan - Plan Referrals: Obed Martinez DO [Primary Care Provider] -
[2017-01-10] MEDS: Sulfamethoxazole/Trimeth Oral Soln 400-80mg/10 ML UDC GTUBE SCH (20:12)
[2017-01-11] MEDS: *HR* Enoxaparin 40 MG/0.4 ML SYRINGE SQ SCH (05:12)
[2017-01-11] MEDS: Aspirin 81 MG TAB.CHEW GTUBE SCH (09:27)
[2017-01-11] MEDS: Sulfamethoxazole/Trimeth Oral Soln 400-80mg/10 ML UDC GTUBE SCH ×2 (09:27→22:42)
--- NOTE | 2017-01-11 15:17 | Internal Med Progress Note ---
Date of Encounter: 01/11/17 Time of Encounter: 15:13 - Assessment and plan (1) CVA (cerebral vascular accident) Current Visit: Yes Status: Acute Assessment and plan: I will patient is still seeing PT OT TR and speech. She has had a devastating stroke and with doing the best we can. There still cognitive issues. See Dr. Lindsay's psychological eval Qualifiers: CVA mechanism: occlusion Precerebral and cerebral artery: unspecified precerebral artery Qualified Code(s): I63.20 - Cerebral infarction due to unspecified occlusion or stenosis of unspecified precerebral arteries - Time Spent With Patient less than 15 minutes - Subjective Interval history: Rut continues to progress. She is now eating solid food under supervision of speech pathology. Only by mouth intake is of course when speech therapy is supervising. And she has trouble focusing so she will eat maybe 6 bites and then her interest goes elsewhere. And then other times she will say she is starving and wants 3 trace. - Constitutional Vitals: Temp Pulse Resp BP Pulse Ox 97.7 F 74 16 125/66 98 01/11/17 07:00 01/11/17 07:00 01/11/17 07:00 01/11/17 07:00 01/11/17 07:00 General appearance: Present: cooperative, pleasant, no acute distress, answers questions appropriately - Head Head exam: Present: atraumatic, normal inspection, normocephalic - Neck Neck exam general surgery: Present: supple, trachea midline. Absent: lymphadenopathy - Respiratory Respiratory exam: Present: CTAB. Absent: accessory muscle use, rales, rhonchi, wheezes - Cardiovascular Cardiovascular exam: Present: RRR, +S1, +S2. Absent: diastolic murmur, gallop, rubs, systolic murmur Internal Medicine: Result - Labs CBC & Chem 7: 01/09/17 04:40 01/09/17 04:40 - ABG Interpretation ABG results: PT/INR, D-dimer PT 11.7 Seconds (9.4-12.1) 12/23/16 04:40 - VTE Documentation of Mechanical Device: Graduated compression elastic hosiery Consult Discharge Plan - Plan Referrals: Obed Martinez DO [Primary Care Provider] -
--- NOTE | 2017-01-11 15:22 | Rehab Psychology Progress Note ---
Date of Encounter: 01/11/17 Time of Encounter: 15:00 Subjective - Patient Report Patient Report: Patient reports frustration and feeling that her observations are discountef. Objective - WHODAS Functional Impairment Mobility: Severe - Mental Status Mental Status Changes: Working Memory appeared intact. However, patient was internally distracted. Assessment and Plan - Diagnosis (1) CVA (cerebral vascular accident) Qualifiers: CVA mechanism: occlusion Precerebral and cerebral artery: unspecified precerebral artery Qualified Code(s): I63.20 - Cerebral infarction due to unspecified occlusion or stenosis of unspecified precerebral arteries Procedures - Intervention Interventions: Other
[2017-01-12] MEDS: *HR* Enoxaparin 40 MG/0.4 ML SYRINGE SQ SCH (04:26)
[2017-01-12] MEDS: Sulfamethoxazole/Trimeth Oral Soln 400-80mg/10 ML UDC GTUBE SCH ×2 (09:09→22:57)
[2017-01-12] MEDS: Aspirin 81 MG TAB.CHEW GTUBE SCH (09:26)
--- NOTE | 2017-01-12 19:11 | Internal Med Progress Note ---
Date of Encounter: 01/12/17 Time of Encounter: 19:08 - Assessment and plan (1) CVA (cerebral vascular accident) Current Visit: Yes Status: Acute Assessment and plan: stable no new change Qualifiers: CVA mechanism: occlusion Precerebral and cerebral artery: unspecified precerebral artery Qualified Code(s): I63.20 - Cerebral infarction due to unspecified occlusion or stenosis of unspecified precerebral arteries (2) Hyperlipidemia Current Visit: Yes Status: Chronic Assessment and plan: no new change stable Qualifiers: Hyperlipidemia type: unspecified Qualified Code(s): E78.5 - Hyperlipidemia , unspecified (3) UTI (urinary tract infection) Current Visit: Yes Status: Acute Assessment and plan: growing e coli sensitivity is pending on bacterium needs to continue and then adjust as needed . Asymptomatic Qualifiers: Urinary tract infection type: acute cystitis Qualified Code(s): N30.00 - Acute cystitis without hematuria - Subjective Interval history: no new complains UTI grew E coli sensitivity pending no acute issues feels fine - Constitutional Vitals: Temp Pulse Resp BP Pulse Ox 98.4 F 77 18 115/60 96 01/12/17 06:00 01/12/17 06:00 01/12/17 06:00 01/12/17 06:00 01/12/17 06:00 General appearance: Present: cooperative, pleasant, no acute distress, answers questions appropriately - Head Head exam: Present: atraumatic - Eye Eye exam: Present: EOMI, PERRL. Absent: scleral icterus, conjuntiva pink Pupils: Present: PERRL - Neck Neck exam general surgery: Present: supple. Absent: tenderness, nuchal rigidity - Respiratory Respiratory exam: Present: CTAB. Absent: respiratory distress, rhonchi, wheezes , tachypnea - Cardiovascular Cardiovascular exam: Present: RRR, +S1, +S2. Absent: irregular rhythm, JVD - GI/Abdominal GI/Abdominal exam: Present: normal bowel sounds, soft. Absent: rigid, splenomegaly, tenderness Additional comments: patent G tube - Neurological Exam Neurological exam: Present: alert, CN II-XII intact, oriented X3 Additional comments: no new change Internal Medicine: Result - Labs CBC & Chem 7: 01/09/17 04:40 01/09/17 04:40 - ABG Interpretation ABG results: PT/INR, D-dimer PT 11.7 Seconds (9.4-12.1) 12/23/16 04:40 - VTE Documentation of Mechanical Device: Graduated compression elastic hosiery Consult Discharge Plan - Plan Referrals: Obed Martinez DO [Primary Care Provider] -
[2017-01-13] MEDS: *HR* Enoxaparin 40 MG/0.4 ML SYRINGE SQ SCH (06:18)
[2017-01-13] MEDS: Aspirin 81 MG TAB.CHEW GTUBE SCH (09:48)
[2017-01-13] MEDS: Sulfamethoxazole/Trimeth Oral Soln 400-80mg/10 ML UDC GTUBE SCH ×2 (09:50→22:16)
--- NOTE | 2017-01-13 17:49 | Internal Med Progress Note ---
Date of Encounter: 01/13/17 Time of Encounter: 17:47 - Assessment and plan (1) CVA (cerebral vascular accident) Current Visit: Yes Status: Acute Assessment and plan: stable no new change getting her PT and stable Qualifiers: CVA mechanism: occlusion Precerebral and cerebral artery: unspecified precerebral artery Qualified Code(s): I63.20 - Cerebral infarction due to unspecified occlusion or stenosis of unspecified precerebral arteries (2) Hyperlipidemia Current Visit: Yes Status: Chronic Assessment and plan: on meds no new change Qualifiers: Hyperlipidemia type: unspecified Qualified Code(s): E78.5 - Hyperlipidemia , unspecified (3) UTI (urinary tract infection) Current Visit: Yes Status: Acute Assessment and plan: empirically on meds sensitivity pending afebrile Qualifiers: Urinary tract infection type: acute cystitis Qualified Code(s): N30.00 - Acute cystitis without hematuria - Subjective Interval history: No new complains feels fine no fever or chills no SOB no cheat pain - Constitutional Vitals: Temp Pulse Resp BP Pulse Ox 97.1 F L 66 16 94/56 92 01/13/17 06:00 01/13/17 06:00 01/13/17 06:00 01/13/17 06:00 01/13/17 06:00 General appearance: Present: cooperative, A&O X 3, pleasant, no acute distress, answers questions appropriately - Head Head exam: Present: atraumatic - Eye Eye exam: Present: EOMI, PERRL - Neck Neck exam general surgery: Present: supple. Absent: tenderness, nuchal rigidity - Respiratory Respiratory exam: Present: CTAB. Absent: rales, respiratory distress, rhonchi, stridor, wheezes, tachypnea - Cardiovascular Cardiovascular exam: Present: RRR, +S1, +S2. Absent: irregular rhythm, JVD - GI/Abdominal GI/Abdominal exam: Present: normal bowel sounds, soft. Absent: firm, guarding, rebound, rigid Additional comments: patent G tube - Extremities Exam Extremities exam: Absent: pedal edema, tenderness - Neurological Exam Neurological exam: Present: CN II-XII intact, oriented X3. Absent: facial droop , speech deficit Additional comments: right side weakness no new change Internal Medicine: Result - Labs CBC & Chem 7: 01/09/17 04:40 01/09/17 04:40 - ABG Interpretation ABG results: PT/INR, D-dimer PT 11.7 Seconds (9.4-12.1) 12/23/16 04:40 - VTE Documentation of Mechanical Device: Graduated compression elastic hosiery Consult Discharge Plan - Plan Referrals: Obed Martinez DO [Primary Care Provider] -
[2017-01-14] MEDS: *HR* Enoxaparin 40 MG/0.4 ML SYRINGE SQ SCH (05:26)
[2017-01-14] MEDS: Sulfamethoxazole/Trimeth Oral Soln 400-80mg/10 ML UDC GTUBE SCH ×2 (07:37→21:21)
[2017-01-14] MEDS: Aspirin 81 MG TAB.CHEW GTUBE SCH (07:37)
--- NOTE | 2017-01-14 10:20 | Internal Med Progress Note ---
Date of Encounter: 01/14/17 Time of Encounter: 10:18 - Assessment and plan (1) CVA (cerebral vascular accident) Current Visit: Yes Status: Acute Assessment and plan: stable no new changes doing well Qualifiers: CVA mechanism: occlusion Precerebral and cerebral artery: unspecified precerebral artery Qualified Code(s): I63.20 - Cerebral infarction due to unspecified occlusion or stenosis of unspecified precerebral arteries (2) Hyperlipidemia Current Visit: Yes Status: Chronic Assessment and plan: stable no new change Qualifiers: Hyperlipidemia type: unspecified Qualified Code(s): E78.5 - Hyperlipidemia , unspecified (3) UTI (urinary tract infection) Current Visit: Yes Status: Acute Assessment and plan: on antibiotics doing well afebrile Qualifiers: Urinary tract infection type: acute cystitis Qualified Code(s): N30.00 - Acute cystitis without hematuria - Subjective Interval history: no new change seems to be doing well no pain eating well and is able to eat and swallow without difficulty - Constitutional Vitals: Temp Pulse Resp BP Pulse Ox 97.6 F 60 16 118/75 93 01/14/17 07:00 01/14/17 07:00 01/14/17 07:00 01/14/17 07:00 01/14/17 07:00 General appearance: Present: cooperative, A&O X 3, pleasant, no acute distress, answers questions appropriately - Head Head exam: Present: atraumatic - Eye Eye exam: Present: EOMI, PERRL. Absent: scleral icterus, conjuntiva pink Pupils: Present: PERRL - Neck Neck exam general surgery: Present: supple. Absent: tenderness, nuchal rigidity - Respiratory Respiratory exam: Present: CTAB. Absent: rales, respiratory distress, rhonchi, stridor, wheezes - Cardiovascular Cardiovascular exam: Present: RRR, +S1, +S2. Absent: irregular rhythm, JVD - GI/Abdominal GI/Abdominal exam: Present: normal bowel sounds, soft. Absent: guarding, rebound, rigid - Neurological Exam Neurological exam: Present: CN II-XII intact, oriented X3. Absent: facial droop , speech deficit Additional comments: no new change in weakness as before Internal Medicine: Result - Labs CBC & Chem 7: 01/09/17 04:40 01/09/17 04:40 - ABG Interpretation ABG results: PT/INR, D-dimer PT 11.7 Seconds (9.4-12.1) 12/23/16 04:40 - VTE Documentation of Mechanical Device: Graduated compression elastic hosiery Consult Discharge Plan - Plan Referrals: Obed Martinez DO [Primary Care Provider] -
[2017-01-15] MEDS: *HR* Enoxaparin 40 MG/0.4 ML SYRINGE SQ SCH (05:03)
[2017-01-15] MEDS: Sulfamethoxazole/Trimeth Oral Soln 400-80mg/10 ML UDC GTUBE SCH ×2 (09:26→21:20)
[2017-01-15] MEDS: Aspirin 81 MG TAB.CHEW GTUBE SCH (09:26)
[2017-01-16] MEDS: *HR* Enoxaparin 40 MG/0.4 ML SYRINGE SQ SCH (05:43)
[2017-01-16 06:09] LABS: Eosinophils # 0.2 K/mcL (0.0-0.6); Eosinophils % 6.2 %; Hematocrit 40.9 % (35.3-44.9); Hemoglobin 13.7 g/dL (11.5-15.4); Immature Granulocytes % 0.3 % (0-4); Lymphocytes # 0.9 K/mcL (0.6-4.6); Lymphocytes % 22.6 %; Mean Corpuscular HGB Conc 33.5 g/dL (31.6-35.5); Mean Corpuscular Hemoglobin 29.8 pg (28.0-33.3); Mean Corpuscular Volume 88.9 fL (83.0-100.0); Mean Platelet Volume 11.1 fL (9.4-12.4); Monocytes # 0.7 K/mcL (0.0-1.3); Monocytes % 18.2 %; Platelet Count 241 K/mcL (140-400); Red Cell Distribution Width 15.7 % (11.5-14.5); Segmented Neutrophils % 51.7 %
[2017-01-16 06:41] LABS: Platelet Estimate Normal (Normal)
[2017-01-16 06:48] LABS: BUN/Creatinine Ratio 20 (6-26); Blood Urea Nitrogen 15 mg/dL (7-20); Calcium 9.7 mg/dL (8.6-10.8); Carbon Dioxide 24 mEq/L (19-29); Chloride 104 mEq/L (98-109); Glucose 124 mg/dL (70-99); Osmolality,Calculated 290 (280-300); Potassium 3.9 mEq/L (3.5-4.5); Sodium 139 mEq/L (136-145); eGFR For African Americans > 60 (> 60); eGFR For Non-African Americans > 60 (> 60)
[2017-01-16] MEDS: Sulfamethoxazole/Trimeth Oral Soln 400-80mg/10 ML UDC GTUBE SCH ×2 (08:43→21:41)
[2017-01-16] MEDS: Aspirin 81 MG TAB.CHEW GTUBE SCH (08:43)
[2017-01-17] MEDS: *HR* Enoxaparin 40 MG/0.4 ML SYRINGE SQ SCH (06:46)
[2017-01-17] MEDS: Aspirin 81 MG TAB.CHEW GTUBE SCH (09:26)
[2017-01-17] MEDS: Sulfamethoxazole/Trimeth Oral Soln 400-80mg/10 ML UDC GTUBE SCH ×2 (09:27→23:34)
--- NOTE | 2017-01-17 14:32 | Internal Med Progress Note ---
Date of Encounter: 01/17/17 Time of Encounter: 14:30 - Assessment and plan (1) CVA (cerebral vascular accident) Current Visit: Yes Status: Acute Assessment and plan: Patient's here for CVA rehabilitation. She had a very significant ischemic CVA Qualifiers: CVA mechanism: occlusion Precerebral and cerebral artery: unspecified precerebral artery Qualified Code(s): I63.20 - Cerebral infarction due to unspecified occlusion or stenosis of unspecified precerebral arteries - Time Spent With Patient less than 15 minutes - Subjective Interval history: Rut moved her left leg spontaneously today. So were showing some progress there. Her affect seems good and her mentation seems improved - Constitutional Vitals: Temp Pulse Resp BP Pulse Ox 97.9 F 75 16 118/65 94 01/17/17 08:01 01/17/17 08:01 01/17/17 08:01 01/17/17 08:01 01/17/17 08:01 General appearance: Present: cooperative, A&O X 3, pleasant, no acute distress, answers questions appropriately - Head Head exam: Present: atraumatic, normal inspection, normocephalic - Neck Neck exam general surgery: Present: supple, trachea midline. Absent: lymphadenopathy - Respiratory Respiratory exam: Present: CTAB. Absent: accessory muscle use, rales, rhonchi, wheezes - Cardiovascular Cardiovascular exam: Present: RRR, +S1, +S2. Absent: diastolic murmur, gallop, rubs, systolic murmur Internal Medicine: Result - Labs CBC & Chem 7: 01/16/17 05:15 01/16/17 05:15 Labs: Lab is stable - ABG Interpretation ABG results: PT/INR, D-dimer PT 11.7 Seconds (9.4-12.1) 12/23/16 04:40 - VTE Documentation of Mechanical Device: Graduated compression elastic hosiery Consult Discharge Plan - Plan Referrals: Obed Martinez DO [Primary Care Provider] -
[2017-01-18] MEDS: *HR* Enoxaparin 40 MG/0.4 ML SYRINGE SQ SCH (05:36)
[2017-01-18] MEDS: Aspirin 81 MG TAB.CHEW GTUBE SCH (08:49)
[2017-01-18] MEDS: Sulfamethoxazole/Trimeth Oral Soln 400-80mg/10 ML UDC GTUBE SCH ×2 (08:51→12:37)
--- NOTE | 2017-01-18 14:56 | Internal Med Progress Note ---
Date of Encounter: 01/18/17 Time of Encounter: 14:54 - Assessment and plan (1) CVA (cerebral vascular accident) Current Visit: Yes Status: Acute Assessment and plan: Significant ischemic CVA. For which she is undergoing aggressive rehabilitation. Qualifiers: CVA mechanism: occlusion Precerebral and cerebral artery: unspecified precerebral artery Qualified Code(s): I63.20 - Cerebral infarction due to unspecified occlusion or stenosis of unspecified precerebral arteries - Time Spent With Patient less than 15 minutes - Subjective Interval history: Family showing slow but steady progress. - Constitutional Vitals: Temp Pulse Resp BP Pulse Ox 97.5 F L 60 16 116/64 95 01/18/17 07:00 01/18/17 07:00 01/18/17 07:00 01/18/17 07:00 01/18/17 07:00 General appearance: Present: cooperative, A&O X 3, pleasant, no acute distress, answers questions appropriately - Head Head exam: Present: atraumatic, normocephalic - Respiratory Respiratory exam: Present: CTAB. Absent: accessory muscle use, rales, rhonchi, wheezes - Cardiovascular Cardiovascular exam: Present: RRR, +S1, +S2. Absent: diastolic murmur, gallop, rubs, systolic murmur Internal Medicine: Result - Labs CBC & Chem 7: 01/16/17 05:15 01/16/17 05:15 Labs: Labs okay - ABG Interpretation ABG results: PT/INR, D-dimer PT 11.7 Seconds (9.4-12.1) 12/23/16 04:40 - VTE Documentation of Mechanical Device: Graduated compression elastic hosiery Consult Discharge Plan - Plan Referrals: Obed Martinez DO [Primary Care Provider] -
[2017-01-19] MEDS: *HR* Enoxaparin 40 MG/0.4 ML SYRINGE SQ SCH (06:47)
[2017-01-19] MEDS: Aspirin 81 MG TAB.CHEW GTUBE SCH (08:12)
--- NOTE | 2017-01-19 13:27 | Internal Med Progress Note ---
Date of Encounter: 01/19/17 Time of Encounter: 13:20 - Assessment and plan (1) CVA (cerebral vascular accident) Current Visit: Yes Status: Acute Assessment and plan: Patient has significant ischemic CVA Qualifiers: CVA mechanism: occlusion Precerebral and cerebral artery: unspecified precerebral artery Qualified Code(s): I63.20 - Cerebral infarction due to unspecified occlusion or stenosis of unspecified precerebral arteries - Time Spent With Patient less than 15 minutes - Subjective Interval history: Family showing slow but steady progress. Plan continue Strine. Doing better - Constitutional Vitals: Temp Pulse Resp BP Pulse Ox 97.4 F L 95 16 134/53 91 01/18/17 19:00 01/18/17 19:00 01/18/17 19:00 01/18/17 19:00 01/18/17 19:00 General appearance: Present: cooperative, A&O X 3, pleasant, no acute distress, answers questions appropriately - Head Head exam: Present: atraumatic, normocephalic - Neck Neck exam general surgery: Present: supple, trachea midline. Absent: lymphadenopathy - Respiratory Respiratory exam: Present: CTAB. Absent: accessory muscle use, rales, rhonchi, wheezes - Cardiovascular Cardiovascular exam: Present: RRR, +S1, +S2. Absent: diastolic murmur, gallop, rubs, systolic murmur Internal Medicine: Result - Labs CBC & Chem 7: 01/16/17 05:15 01/16/17 05:15 Labs: Lab looks good - ABG Interpretation ABG results: PT/INR, D-dimer PT 11.7 Seconds (9.4-12.1) 12/23/16 04:40 - VTE Documentation of Mechanical Device: Graduated compression elastic hosiery Consult Discharge Plan - Plan Referrals: Obed Martinez DO [Primary Care Provider] -
[2017-01-20] MEDS: *HR* Enoxaparin 40 MG/0.4 ML SYRINGE SQ SCH (05:17)
[2017-01-20] MEDS: Aspirin 81 MG TAB.CHEW GTUBE SCH (09:01)
--- NOTE | 2017-01-20 14:26 | Internal Med Progress Note ---
Date of Encounter: 01/20/17 Time of Encounter: 14:24 - Assessment and plan (1) CVA (cerebral vascular accident) Current Visit: Yes Status: Acute Assessment and plan: Patient's here for significant ischemic CVA Qualifiers: CVA mechanism: occlusion Precerebral and cerebral artery: unspecified precerebral artery Qualified Code(s): I63.20 - Cerebral infarction due to unspecified occlusion or stenosis of unspecified precerebral arteries - Time Spent With Patient less than 15 minutes - Subjective Interval history: Patient continues to show progress. - Constitutional Vitals: Temp Pulse Resp BP Pulse Ox 97.6 F 62 16 132/69 98 01/20/17 07:08 01/20/17 07:08 01/20/17 07:08 01/20/17 07:08 01/20/17 07:08 General appearance: Present: cooperative, A&O X 3, pleasant, no acute distress, answers questions appropriately - Head Head exam: Present: atraumatic, normal inspection, normocephalic - Neck Neck exam general surgery: Present: supple, trachea midline. Absent: lymphadenopathy - Respiratory Respiratory exam: Present: CTAB. Absent: accessory muscle use, rales, rhonchi, wheezes - Cardiovascular Cardiovascular exam: Present: RRR, +S1, +S2. Absent: diastolic murmur, gallop, rubs, systolic murmur Internal Medicine: Result - Labs CBC & Chem 7: 01/16/17 05:15 01/16/17 05:15 Labs: Lab is stable - ABG Interpretation ABG results: PT/INR, D-dimer PT 11.7 Seconds (9.4-12.1) 12/23/16 04:40 - VTE Documentation of Mechanical Device: Graduated compression elastic hosiery Consult Discharge Plan - Plan Referrals: Obed Martinez DO [Primary Care Provider] -
[2017-01-21] MEDS: *HR* Enoxaparin 40 MG/0.4 ML SYRINGE SQ SCH (05:12)
[2017-01-21] MEDS: Aspirin 81 MG TAB.CHEW GTUBE SCH (08:32)
[2017-01-22] MEDS: *HR* Enoxaparin 40 MG/0.4 ML SYRINGE SQ SCH (05:19)
[2017-01-22] MEDS: Aspirin 81 MG TAB.CHEW GTUBE SCH (07:46)
[2017-01-23] MEDS: *HR* Enoxaparin 40 MG/0.4 ML SYRINGE SQ SCH (04:56)
[2017-01-23 05:53] LABS: Basophils % 0.6 %; Eosinophils # 0.3 K/mcL (0.0-0.6); Eosinophils % 5.8 %; Hematocrit 40.7 % (35.3-44.9); Hemoglobin 13.3 g/dL (11.5-15.4); Immature Granulocytes % 0.2 % (0-4); Lymphocytes # 1.3 K/mcL (0.6-4.6); Lymphocytes % 28.3 %; Mean Corpuscular HGB Conc 32.7 g/dL (31.6-35.5); Mean Corpuscular Hemoglobin 29.8 pg (28.0-33.3); Mean Corpuscular Volume 91.3 fL (83.0-100.0); Mean Platelet Volume 10.4 fL (9.4-12.4); Monocytes # 0.5 K/mcL (0.0-1.3); Monocytes % 10.3 %; Neutrophils # 2.6 K/mcL (1.6-8.9); Platelet Count 298 K/mcL (140-400); Red Blood Count 4.46 M/mcL (3.82-4.97); Red Cell Distribution Width 15.9 % (11.5-14.5); Segmented Neutrophils % 54.8 %
[2017-01-23 06:02] LABS: BUN/Creatinine Ratio 15 (6-26); Blood Urea Nitrogen 10 mg/dL (7-20); Calcium 9.6 mg/dL (8.6-10.8); Carbon Dioxide 27 mEq/L (19-29); Chloride 108 mEq/L (98-109); Glucose 113 mg/dL (70-99); Osmolality,Calculated 294 (280-300); Potassium 4.1 mEq/L (3.5-4.5); Sodium 142 mEq/L (136-145); eGFR For African Americans > 60 (> 60); eGFR For Non-African Americans > 60 (> 60)
[2017-01-23] MEDS: Aspirin 81 MG TAB.CHEW GTUBE SCH (08:50)
--- NOTE | 2017-01-23 13:23 | Internal Med Progress Note ---
Date of Encounter: 01/23/17 Time of Encounter: 13:22 - Assessment and plan (1) CVA (cerebral vascular accident) Current Visit: Yes Status: Acute Assessment and plan: Patient had significant ischemic CVA Qualifiers: CVA mechanism: occlusion Precerebral and cerebral artery: unspecified precerebral artery Qualified Code(s): I63.20 - Cerebral infarction due to unspecified occlusion or stenosis of unspecified precerebral arteries - Time Spent With Patient less than 15 minutes - Subjective Interval history: Patient continues to show progress. Patient's moving her left leg better. She needs assistance and advancing it but is doing a good bit of the work. It were finally showing some significant progress - Constitutional Vitals: Temp Pulse Resp BP Pulse Ox 97.8 F 63 16 132/83 97 01/23/17 07:00 01/23/17 07:00 01/23/17 07:00 01/23/17 07:00 01/23/17 07:00 General appearance: Present: cooperative, A&O X 3, pleasant, no acute distress, answers questions appropriately - Head Head exam: Present: atraumatic, normal inspection, normocephalic - Neck Neck exam general surgery: Present: supple, trachea midline. Absent: lymphadenopathy - Respiratory Respiratory exam: Present: CTAB. Absent: accessory muscle use, rales, rhonchi, wheezes - Cardiovascular Cardiovascular exam: Present: RRR, +S1, +S2. Absent: diastolic murmur, gallop, rubs, systolic murmur Internal Medicine: Result - Labs CBC & Chem 7: 01/23/17 05:25 01/23/17 05:25 Labs: Short CBC 01/23/17 Range/Units 05:25 WBC 4.7 (4.3-11.1) K/mcL Hgb 13.3 (11.5-15.4) g/dL Hct 40.7 (35.3-44.9) % Plt Count 298 (140-400) K/mcL Neutrophils # 2.6 (1.6-8.9) K/mcL BMP 01/23/17 05:25 Sodium 142 Potassium 4.1 Chloride 108 Carbon Dioxide 27 BUN 10 Creatinine 0.67 Glucose 113 H Calcium 9.6 Labs stable - ABG Interpretation ABG results: PT/INR, D-dimer PT 11.7 Seconds (9.4-12.1) 12/23/16 04:40 - VTE Documentation of Mechanical Device: Graduated compression elastic hosiery Consult Discharge Plan - Plan Referrals: Obed Martinez DO [Primary Care Provider] -
[2017-01-23 17:14] LABS: Bilirubin,Urine Negative (Negative); Blood,Urine Trace-intact (Negative); Clarity,Urine Cloudy (Clear); Color,Urine Yellow (Yellow); Glucose,Urine (UA) Normal (Normal); Ketones,Urine Negative (Negative); Leukocyte Esterase,Urine Large (Negative); Nitrite,Urine Positive (Negative); Protein,Urine Negative (Neg-Trace); Specific Gravity,Urine 1.015 (1.010-1.025); Urobilinogen,Urine Normal (Normal)
[2017-01-23 17:24] LABS: Bacteria,Urine Many per hpf (None-Few); RBC,Urine 0-3 per hpf (0-3); Squamous Epithelial Cell,Urine Few per lpf (None-Few); WBC,Urine TNTC per hpf (0-3)
[2017-01-24] MEDS: *HR* Enoxaparin 40 MG/0.4 ML SYRINGE SQ SCH (05:07)
[2017-01-24] MEDS: Aspirin 81 MG TAB.CHEW GTUBE SCH (07:57)
--- NOTE | 2017-01-24 11:37 | Internal Med Progress Note ---
Date of Encounter: 01/24/17 Time of Encounter: 10:10 - Assessment and plan (1) CVA (cerebral vascular accident) Current Visit: Yes Status: Acute Assessment and plan: Left hemiparesis at extremities but not as severe at facial musculature. Rehab is ongoing. Qualifiers: CVA mechanism: occlusion Precerebral and cerebral artery: unspecified precerebral artery Qualified Code(s): I63.20 - Cerebral infarction due to unspecified occlusion or stenosis of unspecified precerebral arteries (2) Hyperlipidemia Current Visit: Yes Status: Chronic Assessment and plan: Apparently stable. Qualifiers: Hyperlipidemia type: unspecified Qualified Code(s): E78.5 - Hyperlipidemia , unspecified (3) UTI (urinary tract infection) Current Visit: Yes Status: Acute Assessment and plan: Treated. 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 Doing well. Is mostly concerned about her inability to focus, as per OT/PT and family. No acute complaints. Wants to go home, soon. Bowels with normal function but sill with urinary incontenence. No new issues.. - Constitutional Vitals: Temp Pulse Resp BP Pulse Ox 97.6 F 62 16 126/69 95 01/24/17 08:15 01/24/17 08:15 01/23/17 19:00 01/24/17 08:15 01/24/17 08:15 General appearance: Present: cooperative, A&O X 3, pleasant, no acute distress, answers questions appropriately Exam: Examined in wheelchair. - Head Head exam: Present: atraumatic, normocephalic - Eye Eye exam: Present: PERRL, conjuntiva pink, sclera anicteric Pupils: Present: PERRL - Neck Neck exam general surgery: Present: supple, trachea midline. Absent: lymphadenopathy, nuchal rigidity - Respiratory Respiratory exam: Present: CTAB. Absent: accessory muscle use, rales, rhonchi, wheezes - Cardiovascular Cardiovascular exam: Present: RRR, +S1, +S2. Absent: gallop, systolic murmur - GI/Abdominal GI/Abdominal exam: Present: normal bowel sounds, soft, no peritoneal signs. Absent: distended, hepatomegaly, splenomegaly, tenderness - Extremities Exam Extremities exam: Present: warm, radial pulses palpable and symmetrical. Absent : calf tenderness, cyanotic, pedal edema Additional comments: Trace pedal edema at left. No cord or calf tenderness. Left hand also with minimal edema consistent with paresis. - Neurological Exam Additional comments: Left sided mild facial droop, dense hemiaresis of left upper and lower extremities. Gross sensation is minimal to confrontation. - Psychiatric Additional comments: Slightly uninhibited affect? At least, a very forthright personality. Internal Medicine: Result - Labs CBC & Chem 7: 01/23/17 05:25 01/23/17 05:25 Labs: Urine 01/23/17 Range/Units 16:30 Urine Color Yellow (Yellow) Urine Clarity Cloudy A (Clear) Urine pH 6.0 (5.0-8.0) pH Units Ur Specific [place] 1.015 (1.010-1.025) Urine Protein Negative (Neg-Trace) mg/dL Urine Glucose (UA) Normal (Normal) mg/dL - ABG Interpretation ABG results: PT/INR, D-dimer PT 11.7 Seconds (9.4-12.1) 12/23/16 04:40 - VTE Documentation of Mechanical Device: Graduated compression elastic hosiery Consult Discharge Plan - Plan Referrals: Obed Martinez DO [Primary Care Provider] -
--- NOTE | 2017-01-24 11:50 | Internal Med Progress Note ---
Date of Encounter: 01/24/17 Time of Encounter: 14:00 - Assessment and plan (1) CVA (cerebral vascular accident) Current Visit: Yes Status: Acute Assessment and plan: Continue rehab and support. Qualifiers: CVA mechanism: occlusion Precerebral and cerebral artery: unspecified precerebral artery Qualified Code(s): I63.20 - Cerebral infarction due to unspecified occlusion or stenosis of unspecified precerebral arteries (2) Hyperlipidemia Current Visit: Yes Status: Chronic Assessment and plan: Continue same regimen Qualifiers: Hyperlipidemia type: unspecified Qualified Code(s): E78.5 - Hyperlipidemia , unspecified (3) UTI (urinary tract infection) Current Visit: Yes Status: Acute Assessment and plan: Afebrile with no findings. Will consider repeat UTI based on Dr. Martinez' experience with the chronicity of her symptoms. 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 Patient is still concerned about her inability to focus, has wandering mind. While she states she's always been that way, she states this is worse, post stroke. I encouraged her to continue work with therapy, especially OT. She requests a irving catheter. When asked why, she states she is persistently incontinent. I explained risk of infection with chronic indwelling catheter and discussed symptoms. Other than frequent urination, no symptoms or signs of UTI. Had a recent one that was treated. I encouraged her to communicate with staff and that another UA would be considered in follow-up. No other issues, bowels moving OK. Again, asked about home-going and I deferred to therapy assessments to optimize rehab potential. - Constitutional Vitals: Temp Pulse Resp BP Pulse Ox 97.6 F 62 16 126/69 95 01/24/17 08:15 01/24/17 08:15 01/23/17 19:00 01/24/17 08:15 01/24/17 08:15 General appearance: Present: cooperative, A&O X 3, pleasant, no acute distress, answers questions appropriately - Head Head exam: Present: atraumatic, normocephalic - Eye Eye exam: Absent: conjunctival injection - Neck Neck exam general surgery: Present: supple, trachea midline. Absent: lymphadenopathy - Respiratory Respiratory exam: Present: CTAB. Absent: accessory muscle use, rales, rhonchi, wheezes - Cardiovascular Cardiovascular exam: Present: RRR, +S1, +S2. Absent: diastolic murmur, gallop, rubs, systolic murmur - GI/Abdominal GI/Abdominal exam: Present: normal bowel sounds, soft, no peritoneal signs. Absent: distended, tenderness Additional comments: PEG tube site and tube dry and intact without drainage, herniation, or evidence of infection. - Extremities Exam Extremities exam: Present: pedal edema, warm, radial pulses palpable and symmetrical. Absent: calf tenderness, cyanotic Additional comments: Trace pedal edema which looks stasis in origin. - Neurological Exam Neurological exam: Present: oriented X3, no focal deficits. Absent: pronater drift, facial droop, speech deficit Additional comments: As before, dense left hemiparesis which seems stable. Mild left facial droop but word finding and enunciation seem well intact. Internal Medicine: Result - Labs CBC & Chem 7: 01/23/17 05:25 01/23/17 05:25 Labs: Urine 01/23/17 Range/Units 16:30 Urine Color Yellow (Yellow) Urine Clarity Cloudy A (Clear) Urine pH 6.0 (5.0-8.0) pH Units Ur Specific [place] 1.015 (1.010-1.025) Urine Protein Negative (Neg-Trace) mg/dL Urine Glucose (UA) Normal (Normal) mg/dL - ABG Interpretation ABG results: PT/INR, D-dimer PT 11.7 Seconds (9.4-12.1) 12/23/16 04:40 - VTE Documentation of Mechanical Device: Graduated compression elastic hosiery Consult Discharge Plan - Plan Referrals: Obed Martinez DO [Primary Care Provider] -
--- NOTE | 2017-01-24 13:29 | Internal Med Progress Note ---
Date of Encounter: 01/24/17 Time of Encounter: 13:27 - Assessment and plan (1) CVA (cerebral vascular accident) Current Visit: Yes Status: Acute Assessment and plan: Ischemic CVA Qualifiers: CVA mechanism: occlusion Precerebral and cerebral artery: unspecified precerebral artery Qualified Code(s): I63.20 - Cerebral infarction due to unspecified occlusion or stenosis of unspecified precerebral arteries - Time Spent With Patient less than 15 minutes - Subjective Interval history: Patient continuing to show improvement working with the therapist. Discussion with her regarding progress and preparation for possible discharge at home. I think were at that point that the patient is making the most of her rehabilitation and showing the most progress. - Constitutional Vitals: Temp Pulse Resp BP Pulse Ox 97.6 F 62 16 126/69 95 01/24/17 08:15 01/24/17 08:15 01/23/17 19:00 01/24/17 08:15 01/24/17 08:15 General appearance: Present: cooperative, A&O X 3, pleasant, no acute distress, answers questions appropriately - Head Head exam: Present: atraumatic, normal inspection, normocephalic - Neck Neck exam general surgery: Present: supple, trachea midline. Absent: lymphadenopathy - Respiratory Respiratory exam: Present: CTAB. Absent: accessory muscle use, rales, rhonchi, wheezes - Cardiovascular Cardiovascular exam: Present: RRR, +S1, +S2. Absent: diastolic murmur, gallop, rubs, systolic murmur Internal Medicine: Result - Labs CBC & Chem 7: 01/23/17 05:25 01/23/17 05:25 Labs: Urine 01/23/17 Range/Units 16:30 Urine Color Yellow (Yellow) Urine Clarity Cloudy A (Clear) Urine pH 6.0 (5.0-8.0) pH Units Ur Specific [place] 1.015 (1.010-1.025) Urine Protein Negative (Neg-Trace) mg/dL Urine Glucose (UA) Normal (Normal) mg/dL Lab is stable - ABG Interpretation ABG results: PT/INR, D-dimer PT 11.7 Seconds (9.4-12.1) 12/23/16 04:40 - VTE Documentation of Mechanical Device: Graduated compression elastic hosiery Consult Discharge Plan - Plan Referrals: Obed Martinez, DO [Primary Care Provider] -
[2017-01-25] MEDS: *HR* Enoxaparin 40 MG/0.4 ML SYRINGE SQ SCH (05:08)
[2017-01-25] MEDS: Aspirin 81 MG TAB.CHEW GTUBE SCH (09:18)
--- NOTE | 2017-01-25 13:35 | Internal Med Progress Note ---
Date of Encounter: 01/25/17 Time of Encounter: 13:33 - Assessment and plan (1) CVA (cerebral vascular accident) Current Visit: Yes Status: Acute Assessment and plan: Family devastating ischemic stroke. An today insurance informed us that she cannot stay longer than this weekend. I chew greatly benefit from continued therapy since she showing leg movement now Qualifiers: CVA mechanism: occlusion Precerebral and cerebral artery: unspecified precerebral artery Qualified Code(s): I63.20 - Cerebral infarction due to unspecified occlusion or stenosis of unspecified precerebral arteries - Time Spent With Patient less than 15 minutes - Subjective Interval history: Patient continuing to show improvement working with the therapist. Discussion with her regarding progress and preparation for possible discharge at home. I think were at that point that the patient is making the most of her rehabilitation and showing the most progress. - Constitutional Vitals: Temp Pulse Resp BP Pulse Ox 98.0 F 60 16 118/63 98 01/25/17 07:50 01/25/17 07:50 01/25/17 07:50 01/25/17 07:50 01/25/17 07:50 General appearance: Present: cooperative, A&O X 3, pleasant, no acute distress, answers questions appropriately Internal Medicine: Result - Labs CBC & Chem 7: 01/23/17 05:25 01/23/17 05:25 Labs: Labs okay - ABG Interpretation ABG results: PT/INR, D-dimer PT 11.7 Seconds (9.4-12.1) 12/23/16 04:40 - VTE Documentation of Mechanical Device: Graduated compression elastic hosiery Consult Discharge Plan - Plan Referrals: Obed Martinez DO [Primary Care Provider] -
[2017-01-26] MEDS: *HR* Enoxaparin 40 MG/0.4 ML SYRINGE SQ SCH (04:52)
[2017-01-26] MEDS: Aspirin 81 MG TAB.CHEW GTUBE SCH (08:04)
--- NOTE | 2017-01-26 13:43 | Internal Med Progress Note ---
Date of Encounter: 01/26/17 Time of Encounter: 13:41 - Assessment and plan (1) CVA (cerebral vascular accident) Current Visit: Yes Status: Acute Assessment and plan: Definite catastrophic ischemic CVA Qualifiers: CVA mechanism: occlusion Precerebral and cerebral artery: unspecified precerebral artery Qualified Code(s): I63.20 - Cerebral infarction due to unspecified occlusion or stenosis of unspecified precerebral arteries - Time Spent With Patient less than 15 minutes - Subjective Interval history: Unfortunately insurances terminated her rehabilitation as of Monday. Today is . Disagree with this patient is at the point now where she is getting the most benefit from therapy. I have to continue PT OT TR at the [place] [facility]. right now would be unusual take care of himself - Constitutional Vitals: Temp Pulse Resp BP Pulse Ox 97.6 F 62 16 114/66 96 01/26/17 06:00 01/26/17 06:00 01/26/17 06:00 01/26/17 06:00 01/26/17 06:00 General appearance: Present: cooperative, A&O X 3, pleasant, no acute distress, answers questions appropriately - Head Head exam: Present: atraumatic, normal inspection, normocephalic - Neck Neck exam general surgery: Present: supple, trachea midline. Absent: lymphadenopathy - Respiratory Respiratory exam: Present: CTAB. Absent: accessory muscle use, rales, rhonchi, wheezes - Cardiovascular Cardiovascular exam: Present: RRR, +S1, +S2. Absent: diastolic murmur, gallop, rubs, systolic murmur Internal Medicine: Result - Labs CBC & Chem 7: 01/23/17 05:25 01/23/17 05:25 Labs: Labs stable - ABG Interpretation ABG results: PT/INR, D-dimer PT 11.7 Seconds (9.4-12.1) 12/23/16 04:40 - VTE Documentation of Mechanical Device: Graduated compression elastic hosiery Consult Discharge Plan - Plan Referrals: Obed Martinez DO [Primary Care Provider] -
[2017-01-27] MEDS: *HR* Enoxaparin 40 MG/0.4 ML SYRINGE SQ SCH (05:30)
[2017-01-27 07:36] VITALS: BP 126/77
[2017-01-27] MEDS: Aspirin 81 MG TAB.CHEW GTUBE SCH (08:47)
--- NOTE | 2017-01-27 11:37 | Discharge Summary ---
Date of Encounter: 01/27/17 Time of Encounter: 11:35 - Discharge Diagnosis (1) CVA (cerebral vascular accident) Priority: Primary Status: Acute Qualifiers: CVA mechanism: occlusion Precerebral and cerebral artery: unspecified precerebral artery Qualified Code(s): I63.20 - Cerebral infarction due to unspecified occlusion or stenosis of unspecified precerebral arteries - Discharge Medications Home Medications: Aspirin [Lo-Dose Aspirin EC] 81 mg GTUBE 12/22/16 [History] Atorvastatin Calcium [Lipitor] 80 mg GTUBE 12/22/16 [History] Gluc HCl/Csa/Collagen/Hyalur A [Glucosamine Chondroitin Cap] 2 cap GTUBE TID 10/31 [History] [place]-3 Acid Ethyl Esters [Lovaza] 1 gm GTUBE TID 12/22/16 [History] Omeprazole [PriLOSEC] 20 mg GTUBE BIDAC 12/22/16 [History] Allergies/Adverse Reactions: 3 Allergy/AdvReac Type Severity Reaction Status Date / Time No Known Allergies Allergy Verified 12/22/16 19:44 Date of admission: 12/22/16 19:36 Primary care physician: Obed Martinez DO Consults: 12/22/16 19:59 Consult to Entertainment Reporter [CONS] Routine Reason for SW Consult: discharge planning 12/22/16 20:19 Consult to Nutrition [CONS] Routine Comment: Consulting Provider: NUTRITION Reason for Dietary Consult: Other Other:: Patient NPO on Tube Feed 12/22/16 20:20 Consult to Occupational Therapy [CONS] Routine Comment: Eval and Treat Reason for Consult: Eval and Treat Consult to Physical Therapy [CONS] Routine Comment: Eval and Treat Reason for Consult: Eval and Treat Consult to Recreational Therapy [CONS] Routine Comment: 12/22/16 20:23 Consult to Speech Therapy [CONS] Routine Comment: Evaluate, develop and implement POC Reason for Consult: Eval and Treat Call Completed: No 12/27/16 14:01 Consult to Psychology [CONS] Routine Consulting Provider: Meghann Zamudio Reason for Consult: rehab Time Notified: 13:00 Call Completed: No Discharging clinician: Obed Martinez Anticipated date of discharge: 01/27/17 - Patient Status Disposition: Transfer SNF Functional capacity at discharge: wheelchair bound Overall status at discharge: patient is not back to baseline - Discharge Instructions Follow Up With: Obed Martinez DO [Primary Care Provider] - - Diet and Activity Activity: as per physical therapy Diet: diabetic diet Interval History: 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 She also had trouble looking to the left of center. She was nothing by mouth because of dysphagia. Had a tube inserted for feeding Hospital course: Ms. Rodriguez is a 71 year old female Patient is doing significantly better. Lately she is improved to the point where she is moving her left leg she has some movement in her left arm. And today she had a modified barium swallow which I have not seen the results of. She is eating most of her meals and is much improved overall. Think we need to continue speech along with PT OT and TR at the ECF - Time Spent with Patient Total time spent providing and/or coordinating discharge services: Less than 30 minutes - Constitutional Vitals: Temp Pulse Resp BP Pulse Ox 98.6 F 61 16 126/77 95 01/27/17 07:35 01/27/17 07:35 01/27/17 07:35 01/27/17 07:35 01/27/17 07:35 General appearance: Present: cooperative, A&O X 3, pleasant, no acute distress, answers questions appropriately - Head Head exam: Present: atraumatic, normal inspection, normocephalic - Neck Neck exam general surgery: Present: supple, trachea midline. Absent: lymphadenopathy - Respiratory Respiratory exam: Present: CTAB. Absent: accessory muscle use, rales, rhonchi, wheezes - Cardiovascular Cardiovascular exam: Present: RRR, +S1, +S2. Absent: diastolic murmur, gallop, rubs, systolic murmur - VTE Documentation of Mechanical Device: Graduated compression elastic hosiery
--- NOTE | 2017-01-27 13:12 | Physician Discharge Referral ---
ExtendedCare Referral Info Transfer To: ECF Provider in Charge after Transfer: PCP Institutional Level of Care: Skilled - Diagnosis (1) CVA (cerebral vascular accident) Priority: Primary Status: Acute Prognosis: Fair Aware of Diagnosis: Family Aware of Prognosis: Family - Transfer Medications Home Medications: Aspirin [Lo-Dose Aspirin EC] 81 mg GTUBE 12/22/16 [History] Atorvastatin Calcium [Lipitor] 80 mg GTUBE 12/22/16 [History] Gluc HCl/Csa/Collagen/Hyalur A [Glucosamine Chondroitin Cap] 2 cap GTUBE TID 10/31 [History] [place]-3 Acid Ethyl Esters [Lovaza] 1 gm GTUBE TID 12/22/16 [History] Omeprazole [PriLOSEC] 20 mg GTUBE BIDAC 12/22/16 [History] Allergies/Adverse Reactions: 3 Allergy/AdvReac Type Severity Reaction Status Date / Time No Known Allergies Allergy Verified 12/22/16 19:44 - Respiratory Orders Smoking Cessation: Smoking cessation has been advised. For more information, call the [place] Tobacco Quit Line at 0-139-ANHZ-NOW. - Advance Directives Living Will: Yes Power of Belt Notcher: Yes Code Status: Full Code - Rehabiliation Orders Rehab Potential: Fair Rehab Orders: Evaluation for Physical Therapy, Evaluation for Occupational Therapy, Evaluation for Speech Therapy - Treatments Skin tear care topically daily PRN per policy, May check for fecal impaction rectally daily PRN, Fleet enema rectally every other day PRN cleansing purposes - Diet Orders No Concentrated Sweets House Supplement per Dietary: only if eating less than 50% Tube Feedings (type/amount/rate): at 2100 only CERTIFICATION: I certify that the transfer of the above named patient to an Extended Care Facility is necessary for the continuing treatment of the diagnosis listed. The above information is true and accurate reflection of patient's current condition. Confidential - Redisclosure prohibited without a patient's written consent.
[2017-01-27] MEDS ORDERED: FLUARIX QUAD 2017-18 36MOS UP/PF 0.5 ML SYRINGE IM ONE (13:31)
== END 2017-01-27 15:00 | DRG 57 ==
LOC: INPGRE 19:36
PROVIDERS: ADMIT Internal Medicine; ATTEND Internal Medicine

== ENCOUNTER 2017-07-18 07:47 | Inpatient (IN) ==
[2017-07-19 05:45] LABS: Basophils % 0.3 %; Eosinophils # 0.5 K/mcL (0.0-0.6); Eosinophils % 6.9 %; Hemoglobin 10.5 g/dL (11.5-15.4); Immature Granulocytes % 0.8 % (0-4); Lymphocytes # 0.7 K/mcL (0.6-4.6); Mean Corpuscular HGB Conc 31.8 g/dL (31.6-35.5); Mean Corpuscular Hemoglobin 29.3 pg (28.0-33.3); Mean Corpuscular Volume 92.2 fL (83.0-100.0); Mean Platelet Volume 9.5 fL (9.4-12.4); Monocytes # 0.7 K/mcL (0.0-1.3); Monocytes % 9.2 %; Neutrophils # 5.3 K/mcL (1.6-8.9); Platelet Count 388 K/mcL (140-400); Red Blood Count 3.58 M/mcL (3.82-4.97); Red Cell Distribution Width 15.9 % (11.5-14.5); Segmented Neutrophils % 73.8 %
[2017-07-19 05:48] LABS: INR 1.1; Prothrombin Time 12.3 Seconds (9.4-12.1)
[2017-07-19 05:51] LABS: Activated Partial Thrombo Time 27.3 Seconds (26.0-36.0)
[2017-07-19 06:01] LABS: BUN/Creatinine Ratio 33 (6-26); Blood Urea Nitrogen 12 mg/dL (8-23); Calcium 8.8 mg/dL (8.6-10.3); Carbon Dioxide 31 mEq/L (23-29); Chloride 100 mEq/L (98-107); Glucose 137 mg/dL (70-105); Osmolality,Calculated 282 (280-300); Potassium 3.8 mEq/L (3.5-5.1); Sodium 135 mEq/L (136-145); eGFR For African Americans > 60 (> 60); eGFR For Non-African Americans > 60 (> 60)
[2017-07-19] MEDS: Magnesium Oxide 400 MG TABLET PO SCH (09:49)
[2017-07-19] MEDS: GLUCOSAMINE CHONDROI PO SCH ×2 (09:50→20:49)
[2017-07-19] MEDS: *HR* OxyCODONE/APAP 5/325 TABLET PO PRN ×2 (10:17→18:24)
--- NOTE | 2017-07-19 11:36 | Internal Med History&Physical ---
Date of Encounter: 07/19/17 Time of Encounter: 11:30 Assessment and Plan (1) CVA (cerebral vascular accident) Current visit: Yes Status: Chronic PT\OT to eval and treat. Will follow progress. Assist with ADLs as necessary. No new neurological deficits at this time. Left-sided weakness. Qualifiers: CVA mechanism: occlusion Precerebral and cerebral artery: unspecified precerebral artery Qualified Code(s): I63.20 - Cerebral infarction due to unspecified occlusion or stenosis of unspecified precerebral arteries (2) Anemia Current visit: Yes Status: Acute Hemoglobin 10.5 today. Will monitor closely. Qualifiers: Anemia type: unspecified type Qualified Code(s): D64.9 - Anemia, unspecified (3) Urinary incontinence Current visit: Yes Status: Acute Follow up with urology as scheduled. Qualifiers: Urinary Incontinence type: unspecified incontinence Qualified Code(s): R32 - Unspecified urinary incontinence (4) Physical deconditioning Current visit: Yes Status: Acute PT\OT to eval and treat. (5) Right sided sciatica Current visit: Yes Status: Acute Will follow up with therapy. Continue Percocet as needed for pain. Internal Medicine - H&P: HPI Admitted From: Hospital to Hospital Transfer Plans for Post Hospital Care: Home History of present illness: Ms. Rodriguez is a 71 year old female admitted to unit for physical therapy and medical management after being transferred from [facility] with anemia and deconditioning. Patient recently underwent a bladder stimulation implant procedure. She developed pain after and required 6 units of blood. Hemoglobin is now stabilized 10.5. Patient has recent history of right CVA in fall of 2016. Patient was here for rehab and discharged to home. States she was walking with a hector Walker with left-sided weakness. bedside. Patient complaining of right-sided sciatic nerve pain. This is not a new complain. Has been going on for the past week. The pain radiates to right calf. Recent CTF pelvis shows right gluteal hematoma. With diffuse gluteal subcutaneous soft tissue edema. Patient was also started on Rocephin for UTI. Past medical history includes hyperlipidemia, a fib, Gerd and CVA. has appt with urology on 07/24. incontinent of bladder, and bowels. maintaining appetite and hydration. was max assist with ADl's prior to admission. Past Med Surg Social Fam HX - Past Medical History Medical history: arthritis, atrial fibrillation, CVA, GERD, hyperlipidemia, hypertension, other Psychiatric history: anxiety, depression - Past Surgical History Surgical History: hysterectomy, other - Social History Smoking Status: Never smoker Smokeless Tobacco Status: No Alcohol use: none Drug use: none - Family History Brother Living Status: Hx Family Cancer: Yes Mother Living Status: Hx Family Cardiac Disorders: Yes Father Adopted: [place]: Nadir starkey Family Member Ethnicity: Non- Living Status: Age at : 86 Cause of : heart Hx Family Cardiac Disorders: Yes Hx Family Respiratory Disorders: No Hx Family Cancer: Yes Hx Family GI Disorders: Yes Hx Family Genitourinary Disorders: No Hx Family Endocrine Disorder: Yes Hx Family Musculoskeletal Disorders: No Hx Family Neuromuscular Disorders: No Hx Family Neurologic Disorders: No Hx Family HEENT Disorders: No Hx Family Autoimmune Disorders: No Hx Family Reproductive Disorders: No Hx Family Psychosocial Disorders: No Hx Family Medical Disorders: No Internal Medicine - H&P: Meds Atorvastatin Calcium [Lipitor] 80 mg PO DAILY 12/22/16 [History] Gluc HCl/Csa/Collagen/Hyalur A [Glucosamine Chondroitin Cap] 1 cap PO BID [History] Omeprazole [PriLOSEC] 20 mg PO DAILY 12/22/16 [History] Magnesium 500 mg PO DAILY 07/18/17 [History] Oxybutynin 10 mg PO DAILY 07/18/17 [History] Percocet 5-325 mg Tablet 1 tab PO Q6H PRN 07/18/17 [History] 3 Allergy/AdvReac Type Severity Reaction Status Date / Time No Known Allergies Allergy Verified 12/22/16 19:44 All Systems PM: A 10-system review of systems was performed and is negative for pertinent findings except as documented above in the HPI. - Constitutional Constitutional: no chills, no fever(s), no night sweats - EENT Eyes: no change in vision, no discharge, no pain, no photophobia Ears: no ear discharge, no ear pain, no tinnitus Nose, mouth and throat: no dysphagia, no nasal discharge, no neck pain, no sore throat - Cardiovascular Cardiovascular ROS IM: no chest pain, no diaphoresis, no dyspnea, no lightheadedness, no palpitations, no syncope - Respiratory Respiratory: no cough, no dyspnea, no wheezing, no excessive phlegm production - Gastrointestinal Gastrointestinal: no abdominal pain, no diarrhea, no hematemesis, no hematochezia, no melena, no nausea, no vomiting - Genitourinary Genitourinary: no change in urinary stream, no dysuria, no flank pain, no hematuria - Musculoskeletal Musculoskeletal ROS IM: no numbness, no tingling - Integumentary Integumentary IM: no rash, no unusual bruising - Neurological Neurological ROS: no confusion, no convulsions, no focal weakness, no numbness, no tingling, no tremor(s) - Hematologic/Lymphatic Hematologic/Lymphatic: no easy bruising - Constitutional Vitals: Temp Pulse Resp BP Pulse Ox 98.5 F 64 14 115/61 92 07/19/17 09:24 07/19/17 09:24 07/19/17 09:24 07/19/17 09:24 07/19/17 09:24 General appearance: Present: A&O X 3, pleasant, no acute distress, answers questions appropriately Exam: present during exam. - Head Head exam: Present: atraumatic, normocephalic - Eye Eye exam: Present: PERRL, conjuntiva pink, sclera anicteric Pupils: Present: PERRL - Neck Neck exam general surgery: Present: supple, trachea midline. Absent: lymphadenopathy - Respiratory Respiratory exam: Present: CTAB. Absent: accessory muscle use, rales, rhonchi, wheezes - Cardiovascular Cardiovascular exam: Present: RRR, +S1, +S2. Absent: diastolic murmur, gallop, rubs, systolic murmur - GI/Abdominal GI/Abdominal exam: Present: normal bowel sounds, soft, no peritoneal signs. Absent: distended, tenderness - Extremities Exam Extremities exam: Present: warm, radial pulses palpable and symmetrical. Absent : calf tenderness, cyanotic, pedal edema Additional comments: left arm and leg weakness due to old CVA. RLE edema, nonpitting. no calf tenderness or warmth. - Neurological Exam Neurological exam: Present: CN II-XII intact, oriented X3, no focal deficits. Absent: pronater drift, facial droop, speech deficit - Skin Skin exam: Present: dry, intact Internal Med - H&P Results - Labs CBC & Chem 7: 07/19/17 05:30 07/19/17 05:30 Labs: Short CBC 07/19/17 Range/Units 05:30 WBC 7.2 (4.3-11.1) K/mcL Hgb 10.5 L (11.5-15.4) g/dL Hct 33.0 L (35.3-44.9) % Plt Count 388 (140-400) K/mcL Neutrophils # 5.3 (1.6-8.9) K/mcL BMP 07/19/17 05:30 Sodium 135 L Potassium 3.8 Chloride 100 Carbon Dioxide 31 H BUN 12 Creatinine 0.36 L Glucose 137 H Calcium 8.8 - VTE Documentation of Mechanical Device: Graduated compression elastic hosiery
[2017-07-20] MEDS: *HR* OxyCODONE/APAP 5/325 TABLET PO PRN ×2 (04:01→21:08)
--- NOTE | 2017-07-20 09:24 | Internal Med Progress Note ---
Date of Encounter: 07/20/17 Time of Encounter: 08:20 - Assessment and plan (1) Physical deconditioning Current Visit: Yes Status: Acute Assessment and plan: She is to be returned to effectiveness with therapies and will follow, expectantly. (2) CVA (cerebral vascular accident) Current Visit: Yes Status: Chronic Assessment and plan: Remote but with recent anemia and hospitalization, has lost function and is here to regain strength and stability as possible. Qualifiers: CVA mechanism: occlusion Precerebral and cerebral artery: unspecified precerebral artery Qualified Code(s): I63.20 - Cerebral infarction due to unspecified occlusion or stenosis of unspecified precerebral arteries (3) Urinary incontinence Current Visit: Yes Status: Acute Assessment and plan: She is status post recent implantation of a bladder stimulator and had complications of hematoma with sciaticalike pain and is to apparently have this removed or at least reassessed by her urologist on 07/24/2017. We have been instructed not to change dressings until seen by them. Qualifiers: Urinary Incontinence type: unspecified incontinence Qualified Code(s): R32 - Unspecified urinary incontinence - Time Spent With Patient 25 - 35 minutes - Subjective Interval history: Patient is without interval change. She is having difficulty with voiding. No dysuria, fevers, chills, sweats, etc. Patient has no complaint of chest discomfort, dyspnea, orthopnea, palpitations, nausea or vomiting, constipation or diarrhea, other changes in bowel habits, difficulty with urination, rash or itching, or other new complaints, except as mentioned above. Review of systems is otherwise unremarkable. - Constitutional Vitals: Temp Pulse Resp BP Pulse Ox 98.1 F 65 16 114/62 94 07/20/17 07:16 07/20/17 07:16 07/20/17 07:16 07/20/17 07:16 07/20/17 07:16 General appearance: Present: A&O X 3, pleasant, no acute distress, answers questions appropriately Exam: Examination: (Except as mentioned above): General: In no apparent distress. Alert and oriented 3. Nondiaphoretic. Head: Atraumatic and normocephalic. Respiratory: No use of accessory muscles. Lungs are clear throughout. Normal airflow. Cardiovascular: Regular rate and rhythm without murmur appreciated. Abdomen: Bowel sounds are normal. No hepatosplenomegaly mass or tenderness appreciated. Extremities: No cyanosis clubbing or edema. Still with relatively dense hemiparesis, as before. Skin: Warm and non-diaphoretic with no new lesions noted. Internal Medicine: Result - Labs CBC & Chem 7: 07/19/17 05:30 07/19/17 05:30 - ABG Interpretation ABG results: PT/INR, D-dimer PT 12.3 Seconds (9.4-12.1) H 07/19/17 05:30 - VTE Documentation of Mechanical Device: Graduated compression elastic hosiery Consult Discharge Plan - Plan Referrals: Kisha Garcia DO [Primary Care Provider] -
[2017-07-20] MEDS: Magnesium Oxide 400 MG TABLET PO SCH (10:55)
[2017-07-20] MEDS: GLUCOSAMINE CHONDROI PO SCH ×2 (10:56→21:08)
[2017-07-21] MEDS: Magnesium Oxide 400 MG TABLET PO SCH (09:05)
[2017-07-21] MEDS: GLUCOSAMINE CHONDROI PO SCH ×2 (09:05→22:20)
--- NOTE | 2017-07-21 12:19 | Internal Med Progress Note ---
Date of Encounter: 07/21/17 Time of Encounter: 12:16 - Assessment and plan (1) CVA (cerebral vascular accident) Current Visit: Yes Status: Chronic Assessment and plan: No acute neurological deficits noted during exam. Continue with left hemiparesis. Patient progressing well with physical therapy. We will continue with current plan of care and therapy. Qualifiers: CVA mechanism: occlusion Precerebral and cerebral artery: unspecified precerebral artery Qualified Code(s): I63.20 - Cerebral infarction due to unspecified occlusion or stenosis of unspecified precerebral arteries (2) Right sided sciatica Current Visit: Yes Status: Acute Assessment and plan: Patient with complaints of continued right sciatic type radiculopathy, likely secondary to hematoma from implantation of bladder stimulator. Patient will schedule follow-up with urology for evaluation on 07/24. We will continue with physical therapy. Patient states current pain medication adequate.. - Time Spent With Patient less than 15 minutes - Subjective Interval history: Patient appears relaxed and currently denies any discomforts, palpitations or dyspnea. She states she feels therapy is been improving her strength. Patient states she continues to have pain to the bladder stimulator site, which is to be reevaluated by urology with an upcoming follow-up appointment on 07/24 - Constitutional Vitals: Temp Pulse Resp BP Pulse Ox 97.4 F L 66 16 118/79 96 07/21/17 07:29 07/21/17 07:29 07/21/17 07:29 07/21/17 07:29 07/21/17 07:29 General appearance: Present: A&O X 3, pleasant, no acute distress, answers questions appropriately - Head Head exam: Present: atraumatic, normocephalic - Eye Eye exam: Present: PERRL, conjuntiva pink, sclera anicteric Pupils: Present: PERRL - Neck Neck exam general surgery: Present: supple, trachea midline. Absent: lymphadenopathy - Respiratory Respiratory exam: Present: CTAB. Absent: accessory muscle use, rales, rhonchi, wheezes - Cardiovascular Cardiovascular exam: Present: RRR, +S1, +S2. Absent: diastolic murmur, gallop, rubs, systolic murmur - GI/Abdominal GI/Abdominal exam: Present: normal bowel sounds, soft, no peritoneal signs. Absent: distended, tenderness - Extremities Exam Extremities exam: Present: warm, radial pulses palpable and symmetrical. Absent : calf tenderness, cyanotic, pedal edema - Neurological Exam Neurological exam: Present: CN II-XII intact, oriented X3. Absent: pronater drift, facial droop, speech deficit Additional comments: No acute neurological deficits noted during exam. Patient continues with left hemiparesis. Left arm is 1/5 MS and left leg is 2/5 MS. RE 5/5. Patient continues to complain of right sciatic type pain, which is secondary to hematoma that is present after insertion of a bladder stimulator. - Skin Skin exam: Present: dry, intact Internal Medicine: Result - Labs CBC & Chem 7: 07/19/17 05:30 07/19/17 05:30 - ABG Interpretation ABG results: PT/INR, D-dimer PT 12.3 Seconds (9.4-12.1) H 07/19/17 05:30 - VTE Documentation of Mechanical Device: Graduated compression elastic hosiery Consult Discharge Plan - Plan Referrals: Kisha Garcia DO [Primary Care Provider] -
[2017-07-21] MEDS: *HR* OxyCODONE/APAP 5/325 TABLET PO PRN ×2 (14:22→21:21)
[2017-07-22] MEDS: *HR* OxyCODONE/APAP 5/325 TABLET PO PRN ×2 (05:14→21:05)
[2017-07-22 05:49] LABS: Hematocrit 32.1 % (35.3-44.9); Hemoglobin 10.1 g/dL (11.5-15.4); Mean Corpuscular HGB Conc 31.5 g/dL (31.6-35.5); Mean Corpuscular Volume 92.2 fL (83.0-100.0); Mean Platelet Volume 9.9 fL (9.4-12.4); Platelet Count 398 K/mcL (140-400); Red Blood Count 3.48 M/mcL (3.82-4.97); Red Cell Distribution Width 16.2 % (11.5-14.5)
[2017-07-22 06:05] LABS: Alanine Aminotransferase 17 Units/L (7-52); Albumin 2.9 g/dL (3.5-5.7); Albumin/Globulin Ratio 1.1 (1.1-2.2); Alkaline Phosphatase 139 Units/L (34-104); Aspartate Amino Transferase 26 Units/L (13-39); BUN/Creatinine Ratio 30 (6-26); Bilirubin,Total 1.6 mg/dL (0.3-1.0); Blood Urea Nitrogen 14 mg/dL (8-23); Calcium 8.8 mg/dL (8.6-10.3); Carbon Dioxide 30 mEq/L (23-29); Chloride 101 mEq/L (98-107); Globulin 2.6 g/dL (2.4-3.5); Glucose 116 mg/dL (70-105); Magnesium 2.2 mg/dL (1.6-2.6); Osmolality,Calculated 285 (280-300); Potassium 3.5 mEq/L (3.5-5.1); Sodium 137 mEq/L (136-145); Total Protein 5.5 g/dL (6.4-8.9); eGFR For African Americans > 60 (> 60); eGFR For Non-African Americans > 60 (> 60)
[2017-07-22] MEDS: Magnesium Oxide 400 MG TABLET PO SCH (09:26)
[2017-07-22] MEDS: GLUCOSAMINE CHONDROI PO SCH ×2 (09:27→21:04)
--- NOTE | 2017-07-22 19:58 | Internal Med Progress Note ---
Date of Encounter: 07/22/17 Time of Encounter: 04:00 - Assessment and plan (1) CVA (cerebral vascular accident) Current Visit: Yes Status: Chronic Assessment and plan: hs 2017 with left upper and lower hemiplasia Qualifiers: CVA mechanism: occlusion Precerebral and cerebral artery: unspecified precerebral artery Qualified Code(s): I63.20 - Cerebral infarction due to unspecified occlusion or stenosis of unspecified precerebral arteries (2) Urinary incontinence Current Visit: Yes Status: Acute Assessment and plan: -not happy with stimulator -to f/u with urology o/p Qualifiers: Urinary Incontinence type: unspecified incontinence Qualified Code(s): R32 - Unspecified urinary incontinence (3) Physical deconditioning Current Visit: Yes Status: Acute Assessment and plan: -PT/OT - Time Spent With Patient 25 - 35 minutes - Subjective Interval history: Pt not happy with QOL. no other issues to report - Constitutional Vitals: Temp Pulse Resp BP Pulse Ox 98.8 F 71 16 123/75 94 07/22/17 19:26 07/22/17 19:26 07/22/17 19:26 07/22/17 19:26 07/22/17 19:26 General appearance: Present: A&O X 3, pleasant, no acute distress, answers questions appropriately - Head Head exam: Present: atraumatic, normocephalic - Eye Eye exam: Present: PERRL, conjuntiva pink, sclera anicteric Pupils: Present: PERRL - Neck Neck exam general surgery: Present: supple, trachea midline. Absent: lymphadenopathy - Respiratory Respiratory exam: Present: CTAB. Absent: accessory muscle use, rales, rhonchi, wheezes - Cardiovascular Cardiovascular exam: Present: RRR, +S1, +S2. Absent: diastolic murmur, gallop, rubs, systolic murmur - GI/Abdominal GI/Abdominal exam: Present: normal bowel sounds, soft, no peritoneal signs. Absent: distended, tenderness - Extremities Exam Extremities exam: Present: warm, radial pulses palpable and symmetrical. Absent : calf tenderness, cyanotic, full ROM, pedal edema Additional comments: Left side hemiplagia - Neurological Exam Neurological exam: Present: CN II-XII intact, oriented X3, no focal deficits. Absent: pronater drift, facial droop, speech deficit - Skin Skin exam: Present: dry, intact Internal Medicine: Result - Labs CBC & Chem 7: 07/22/17 05:35 07/22/17 05:35 Labs: Short CBC 07/22/17 Range/Units 05:35 WBC 4.6 (4.3-11.1) K/mcL Hgb 10.1 L (11.5-15.4) g/dL Hct 32.1 L (35.3-44.9) % Plt Count 398 (140-400) K/mcL BMP 07/22/17 05:35 Sodium 137 Potassium 3.5 Chloride 101 Carbon Dioxide 30 H BUN 14 Creatinine 0.46 L Glucose 116 H Calcium 8.8 Liver Function 07/22/17 Range/Units 05:35 Total Bilirubin 1.6 H (0.3-1.0) mg/dL AST 26 (13-39) Units/L ALT 17 (7-52) Units/L Alkaline Phosphatase 139 H (34-104) Units/L Albumin 2.9 L (3.5-5.7) g/dL - ABG Interpretation ABG results: PT/INR, D-dimer PT 12.3 Seconds (9.4-12.1) H 07/19/17 05:30 - VTE Documentation of Mechanical Device: Graduated compression elastic hosiery Consult Discharge Plan - Plan Referrals: Kisha Garcia DO [Primary Care Provider] -
[2017-07-22] MEDS ORDERED: Artificial Tears SOLN 15 ML BOTTLE BOTH EYES PRN (20:06)
[2017-07-23] MEDS: *HR* OxyCODONE/APAP 5/325 TABLET PO PRN ×2 (04:30→19:59)
[2017-07-23] MEDS: Magnesium Oxide 400 MG TABLET PO SCH (09:52)
[2017-07-23] MEDS: GLUCOSAMINE CHONDROI PO SCH ×2 (09:52→19:58)
--- NOTE | 2017-07-23 13:42 | Internal Med Progress Note ---
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 Qualifiers: CVA mechanism: occlusion Precerebral and cerebral artery: unspecified precerebral artery Qualified Code(s): I63.20 - Cerebral infarction due to unspecified occlusion or stenosis of unspecified precerebral arteries (2) Urinary incontinence Current Visit: Yes Status: Acute Assessment and plan: -not happy with stimulator -to f/u with urology o/p Qualifiers: Urinary Incontinence type: unspecified incontinence Qualified Code(s): R32 - Unspecified urinary incontinence (3) Physical deconditioning Current Visit: Yes Status: Acute Assessment and plan: -PT/OT (4) Depression Current Visit: Yes Status: Acute Assessment and plan: prolonged discussion about what appear multifactorial depression with worsening due to current health status -Memory testing today with moca 29/30, no further testing is rcommended at this time. suggest to repeat testing in 6-12 months -Depression moderate, not severe with out SI. Discussed that we start cymbalta due to MK pains as well -cymbalta to be started at 30mg Qhs for at least one wk, pt educated about possible transient side effects such as N/V-fogginess -Eventually would titrate the medication to 30BID first then go from there -f/u with outpatient PCP Qualifiers: Depression Type: major depressive disorder Major depression recurrence: single episode Active/Remission status: currently active Major depression episode severity: moderate Qualified Code(s): F32.1 - Major depressive disorder, single episode, moderate - Time Spent With Patient Greater than 35 minutes - Subjective Interval history: Pt not happy with QOL. no other issues to report No pain Very sad about many things that happened with her Worried about her memory as well sleep is okay. No BM for a while - Constitutional Vitals: Temp Pulse Resp BP Pulse Ox 97.9 F 60 16 119/68 91 07/23/17 06:56 07/23/17 06:56 07/23/17 06:56 07/23/17 06:56 07/23/17 06:56 General appearance: Present: A&O X 3, pleasant, no acute distress, answers questions appropriately - Head Head exam: Present: atraumatic, normocephalic - Eye Eye exam: Present: PERRL, conjuntiva pink, sclera anicteric Pupils: Present: PERRL - Neck Neck exam general surgery: Present: supple, trachea midline. Absent: lymphadenopathy - Respiratory Respiratory exam: Present: CTAB. Absent: accessory muscle use, rales, rhonchi, wheezes - Cardiovascular Cardiovascular exam: Present: RRR, +S1, +S2. Absent: diastolic murmur, gallop, rubs, systolic murmur - GI/Abdominal GI/Abdominal exam: Present: normal bowel sounds, soft, no peritoneal signs. Absent: distended, tenderness - Extremities Exam Additional comments: left hemiplasia still present - Neurological Exam Neurological exam: Present: alert, oriented X3. Absent: strengths equal and symetr throughout, pronater drift, facial droop, speech deficit - Psychiatric Psychiatric exam: Present: depressed, flat affect - Skin Skin exam: Present: dry, intact Internal Medicine: Result - Labs CBC & Chem 7: 07/22/17 05:35 07/22/17 05:35 - ABG Interpretation ABG results: PT/INR, D-dimer PT 12.3 Seconds (9.4-12.1) H 07/19/17 05:30 - VTE Documentation of Mechanical Device: Graduated compression elastic hosiery Consult Discharge Plan - Plan Referrals: Kisha Garcia DO [Primary Care Provider] -
[2017-07-24] MEDS: *HR* OxyCODONE/APAP 5/325 TABLET PO PRN ×2 (04:45→11:09)
[2017-07-24 05:40] LABS: Basophils % 0.2 %; Eosinophils # 0.3 K/mcL (0.0-0.6); Eosinophils % 7.2 %; Hematocrit 33.9 % (35.3-44.9); Hemoglobin 10.8 g/dL (11.5-15.4); Immature Granulocytes % 0.9 % (0-4); Lymphocytes % 21.3 %; Mean Corpuscular HGB Conc 31.9 g/dL (31.6-35.5); Mean Corpuscular Hemoglobin 29.1 pg (28.0-33.3); Mean Corpuscular Volume 91.4 fL (83.0-100.0); Mean Platelet Volume 9.4 fL (9.4-12.4); Monocytes # 0.5 K/mcL (0.0-1.3); Neutrophils # 2.7 K/mcL (1.6-8.9); Platelet Count 396 K/mcL (140-400); Red Blood Count 3.71 M/mcL (3.82-4.97); Red Cell Distribution Width 16.3 % (11.5-14.5); Segmented Neutrophils % 59.4 %
[2017-07-24 07:01] LABS: BUN/Creatinine Ratio 30 (6-26); Blood Urea Nitrogen 12 mg/dL (8-23); Calcium 8.8 mg/dL (8.6-10.3); Carbon Dioxide 29 mEq/L (23-29); Chloride 101 mEq/L (98-107); Glucose 131 mg/dL (70-105); Osmolality,Calculated 280 (280-300); Potassium 3.7 mEq/L (3.5-5.1); Sodium 134 mEq/L (136-145); eGFR For African Americans > 60 (> 60); eGFR For Non-African Americans > 60 (> 60)
[2017-07-24] MEDS: GLUCOSAMINE CHONDROI PO SCH ×2 (08:33→21:43)
--- NOTE | 2017-07-24 10:44 | Internal Med Progress Note ---
Date of Encounter: 07/24/17 Time of Encounter: 10:42 - Assessment and plan (1) CVA (cerebral vascular accident) Current Visit: Yes Status: Chronic Assessment and plan: No acute neurological deficits noted during exam. Continue with left hemiparesis. Patient progressing well with physical therapy. We will continue with current plan of care and therapy. Qualifiers: CVA mechanism: occlusion Precerebral and cerebral artery: unspecified precerebral artery Qualified Code(s): I63.20 - Cerebral infarction due to unspecified occlusion or stenosis of unspecified precerebral arteries (2) Right sided sciatica Current Visit: Yes Status: Acute Assessment and plan: Patient with complaints of continued right sciatic type radiculopathy, likely secondary to hematoma from implantation of bladder stimulator. Patient was seen by urology this morning and was informed that he wanted to perform another procedure later this week. No report received from follow-up visit and will have nursing contact office for further details. We will continue with physical therapy. Patient states current pain medication adequate.. - Time Spent With Patient less than 15 minutes - Subjective Interval history: Patient appears relaxed and currently denies any discomforts, palpitations or dyspnea. She states she feels therapy is been improving her strength. Patient states she continues to have pain to the bladder stimulator site. Pt had f/u visit this morning and states that the Urologist states that he wants to schedule a procedure later this weeks. She didn't have other details or any paperwork from the visit. - Constitutional Vitals: Temp Pulse Resp BP Pulse Ox 98.0 F 68 14 121/68 94 07/24/17 08:00 07/24/17 08:00 07/24/17 08:00 07/24/17 08:00 07/24/17 08:00 General appearance: Present: A&O X 3, pleasant, no acute distress, answers questions appropriately - Head Head exam: Present: atraumatic, normocephalic - Eye Eye exam: Present: PERRL, conjuntiva pink, sclera anicteric Pupils: Present: PERRL - Neck Neck exam general surgery: Present: supple, trachea midline. Absent: lymphadenopathy - Respiratory Respiratory exam: Present: CTAB. Absent: accessory muscle use, rales, rhonchi, wheezes - Cardiovascular Cardiovascular exam: Present: RRR, +S1, +S2. Absent: diastolic murmur, gallop, rubs, systolic murmur - GI/Abdominal GI/Abdominal exam: Present: normal bowel sounds, soft, no peritoneal signs. Absent: distended, tenderness - Additional comments: Patient with bladder stimulator in place. Patient states she continues to have radicular type pain to her right sciatic area, which likely is secondary to hematoma surrounding the bladder stimulator. - Extremities Exam Extremities exam: Present: warm, radial pulses palpable and symmetrical. Absent : calf tenderness, cyanotic, pedal edema - Neurological Exam Neurological exam: Present: CN II-XII intact, oriented X3. Absent: pronater drift, facial droop, speech deficit Additional comments: Left hemiparesis - Skin Skin exam: Present: dry, intact Internal Medicine: Result - Labs CBC & Chem 7: 07/24/17 05:15 07/24/17 05:15 Labs: Short CBC 07/24/17 Range/Units 05:15 WBC 4.5 (4.3-11.1) K/mcL Hgb 10.8 L (11.5-15.4) g/dL Hct 33.9 L (35.3-44.9) % Plt Count 396 (140-400) K/mcL Neutrophils # 2.7 (1.6-8.9) K/mcL BMP 07/24/17 05:15 Sodium 134 L Potassium 3.7 Chloride 101 Carbon Dioxide 29 BUN 12 Creatinine 0.40 L Glucose 131 H Calcium 8.8 - ABG Interpretation ABG results: PT/INR, D-dimer PT 12.3 Seconds (9.4-12.1) H 07/19/17 05:30 - VTE Documentation of Mechanical Device: Graduated compression elastic hosiery Consult Discharge Plan - Plan Referrals: Kisha Garcia DO [Primary Care Provider] -
[2017-07-24] MEDS: Magnesium Oxide 400 MG TABLET PO SCH (11:03)
[2017-07-25] MEDS: *HR* OxyCODONE/APAP 5/325 TABLET PO PRN ×3 (02:05→20:01)
[2017-07-25] MEDS: GLUCOSAMINE CHONDROI PO SCH (09:02)
[2017-07-25] MEDS: Magnesium Oxide 400 MG TABLET PO SCH (09:08)
--- NOTE | 2017-07-25 15:39 | Internal Med Progress Note ---
Date of Encounter: 07/25/17 Time of Encounter: 15:37 - Assessment and plan (1) CVA (cerebral vascular accident) Current Visit: Yes Status: Chronic Assessment and plan: old CVA with left hemiplegia. no new neuro deficits at this time. Qualifiers: CVA mechanism: occlusion Precerebral and cerebral artery: unspecified precerebral artery Qualified Code(s): I63.20 - Cerebral infarction due to unspecified occlusion or stenosis of unspecified precerebral arteries (2) Urinary incontinence Current Visit: Yes Status: Acute Qualifiers: Urinary Incontinence type: unspecified incontinence Qualified Code(s): R32 - Unspecified urinary incontinence (3) Physical deconditioning Current Visit: Yes Status: Acute Assessment and plan: continue PT/OT. will follow progress. (4) Right sided sciatica Current Visit: Yes Status: Acute Assessment and plan: likely from hematoma. states pain is controlled. - Time Spent With Patient less than 15 minutes - Subjective Interval history: resting in bed, states no pain at this time. still having right sided sciatica. having procedure with urologist tomorrow to remove bladder stimulator. states bowels moved today. maintaining appetite and hydration. - Constitutional Vitals: Temp Pulse Resp BP Pulse Ox 97.8 F 60 18 142/62 93 07/25/17 07:09 07/25/17 07:09 07/24/17 19:47 07/25/17 07:09 07/25/17 07:09 General appearance: Present: A&O X 3, pleasant, no acute distress, answers questions appropriately - Head Head exam: Present: atraumatic, normocephalic - Eye Eye exam: Present: PERRL, conjuntiva pink, sclera anicteric Pupils: Present: PERRL - Neck Neck exam general surgery: Present: supple, trachea midline. Absent: lymphadenopathy - Respiratory Respiratory exam: Present: CTAB. Absent: accessory muscle use, rales, rhonchi, wheezes - Cardiovascular Cardiovascular exam: Present: RRR, +S1, +S2. Absent: diastolic murmur, gallop, rubs, systolic murmur - GI/Abdominal GI/Abdominal exam: Present: normal bowel sounds, soft, no peritoneal signs. Absent: distended, tenderness - Extremities Exam Extremities exam: Present: warm, radial pulses palpable and symmetrical. Absent : calf tenderness, cyanotic, pedal edema Additional comments: left hemiplegia - Neurological Exam Neurological exam: Present: CN II-XII intact, oriented X3, no focal deficits. Absent: pronater drift, facial droop, speech deficit - Skin Skin exam: Present: dry, intact Internal Medicine: Result - Labs CBC & Chem 7: 07/24/17 05:15 07/24/17 05:15 - ABG Interpretation ABG results: PT/INR, D-dimer PT 12.3 Seconds (9.4-12.1) H 07/19/17 05:30 - VTE Documentation of Mechanical Device: Graduated compression elastic hosiery Consult Discharge Plan - Plan Referrals: Kisha Garcia DO [Primary Care Provider] -
[2017-07-26] MEDS: *HR* OxyCODONE/APAP 5/325 TABLET PO PRN ×3 (02:04→23:53)
[2017-07-26] MEDS: Magnesium Oxide 400 MG TABLET PO SCH (10:59)
--- NOTE | 2017-07-26 13:36 | Internal Med Progress Note ---
Date of Encounter: 07/26/17 Time of Encounter: 13:34 - Assessment and plan (1) CVA (cerebral vascular accident) Current Visit: Yes Status: Chronic Assessment and plan: old CVA with left hemiplegia. no new neuro deficits at this time. Qualifiers: CVA mechanism: occlusion Precerebral and cerebral artery: unspecified precerebral artery Qualified Code(s): I63.20 - Cerebral infarction due to unspecified occlusion or stenosis of unspecified precerebral arteries (2) Physical deconditioning Current Visit: Yes Status: Acute Assessment and plan: continue PT/OT. will follow progress. (3) Right sided sciatica Current Visit: Yes Status: Acute Assessment and plan: likely from hematoma. states pain is controlled. - Time Spent With Patient less than 15 minutes - Subjective Interval history: Having bladder stimulator removed today. Patient continues to complain about right-sided sciatica. Denies any other new issues at this time. Participating with therapy patient is max assist for transfers. Left hemiplegia from old CVA. - Constitutional Vitals: Temp Pulse Resp BP Pulse Ox 98.1 F 60 13 144/69 95 07/26/17 07:10 07/26/17 07:10 07/26/17 07:10 07/26/17 07:10 07/26/17 07:10 General appearance: Present: A&O X 3, pleasant, no acute distress, answers questions appropriately - Head Head exam: Present: atraumatic, normocephalic - Eye Eye exam: Present: PERRL, conjuntiva pink, sclera anicteric Pupils: Present: PERRL - Neck Neck exam general surgery: Present: supple, trachea midline. Absent: lymphadenopathy - Respiratory Respiratory exam: Present: CTAB. Absent: accessory muscle use, rales, rhonchi, wheezes - Cardiovascular Cardiovascular exam: Present: RRR, +S1, +S2. Absent: diastolic murmur, gallop, rubs, systolic murmur - GI/Abdominal GI/Abdominal exam: Present: normal bowel sounds, soft, no peritoneal signs. Absent: distended, tenderness - Extremities Exam Extremities exam: Present: warm, radial pulses palpable and symmetrical. Absent : calf tenderness, cyanotic, pedal edema Additional comments: Left hemiplegia - Neurological Exam Neurological exam: Present: CN II-XII intact, oriented X3, no focal deficits. Absent: pronater drift, facial droop, speech deficit - Skin Skin exam: Present: dry, intact Internal Medicine: Result - Labs CBC & Chem 7: 07/24/17 05:15 07/24/17 05:15 - ABG Interpretation ABG results: PT/INR, D-dimer PT 12.3 Seconds (9.4-12.1) H 07/19/17 05:30 - VTE Documentation of Mechanical Device: Graduated compression elastic hosiery Consult Discharge Plan - Plan Referrals: Kisha Garcia DO [Primary Care Provider] -
[2017-07-27] MEDS: Magnesium Oxide 400 MG TABLET PO SCH (08:13)
--- NOTE | 2017-07-27 16:55 | Internal Med Progress Note ---
Date of Encounter: 07/27/17 Time of Encounter: 16:52 - Assessment and plan (1) CVA (cerebral vascular accident) Current Visit: Yes Status: Chronic Assessment and plan: No acute neurological deficits noted during exam. Continue with left hemiparesis. Patient progressing well with physical therapy. We will continue with current plan of care and therapy. Qualifiers: CVA mechanism: occlusion Precerebral and cerebral artery: unspecified precerebral artery Qualified Code(s): I63.20 - Cerebral infarction due to unspecified occlusion or stenosis of unspecified precerebral arteries (2) Right sided sciatica Current Visit: Yes Status: Acute Assessment and plan: Patient with complaints of continued right sciatic type radiculopathy, which has improved since removal of the bladder stimulator. - Time Spent With Patient less than 15 minutes - Subjective Interval history: Patient appears relaxed and currently denies any discomforts, palpitations or dyspnea. She states she feels therapy is been improving her strength. Patient had a bladder stimulator removed due to hematoma site. Surgical incision appears dry and intact. Patient states that her radicular symptoms to the right leg have diminished somewhat since removal of the stimulator - Constitutional Vitals: Temp Pulse Resp BP Pulse Ox 98.2 F 74 16 127/70 92 07/27/17 08:18 07/27/17 08:18 07/27/17 08:18 07/27/17 08:18 07/27/17 08:18 General appearance: Present: A&O X 3, pleasant, no acute distress, answers questions appropriately - Head Head exam: Present: atraumatic, normocephalic - Eye Eye exam: Present: PERRL, conjuntiva pink, sclera anicteric Pupils: Present: PERRL - Neck Neck exam general surgery: Present: supple, trachea midline. Absent: lymphadenopathy - Respiratory Respiratory exam: Present: CTAB. Absent: accessory muscle use, rales, rhonchi, wheezes - Cardiovascular Cardiovascular exam: Present: RRR, +S1, +S2. Absent: diastolic murmur, gallop, rubs, systolic murmur - GI/Abdominal GI/Abdominal exam: Present: normal bowel sounds, soft, no peritoneal signs. Absent: distended, tenderness - Extremities Exam Extremities exam: Present: warm, radial pulses palpable and symmetrical. Absent : calf tenderness, cyanotic, pedal edema - Neurological Exam Neurological exam: Present: CN II-XII intact, oriented X3. Absent: pronater drift, facial droop, speech deficit Additional comments: Patient continues with left hemiparesis with LE 3/5 and RE 5/5. Patient continues to have moderate intermittent right sciatic radicular type pain, which increases during mobilization. - Skin Skin exam: Present: dry, intact Additional comments: Right abdominal flank surgical incision appears dry and intact. Internal Medicine: Result - Labs CBC & Chem 7: 07/24/17 05:15 07/24/17 05:15 - ABG Interpretation ABG results: PT/INR, D-dimer PT 12.3 Seconds (9.4-12.1) H 07/19/17 05:30 - VTE Documentation of Mechanical Device: Graduated compression elastic hosiery Consult Discharge Plan - Plan Referrals: Kisha Garcia DO [Primary Care Provider] - Arslan Perkins DO [Non-Partnered Physician] - 08/07/17 (appt with Dr. Perkins on 08/07 )
[2017-07-28] MEDS: *HR* OxyCODONE/APAP 5/325 TABLET PO PRN ×2 (02:05→21:40)
[2017-07-28] MEDS: Magnesium Oxide 400 MG TABLET PO SCH (09:24)
--- NOTE | 2017-07-28 13:24 | Internal Med Progress Note ---
Date of Encounter: 07/28/17 Time of Encounter: 13:22 - Assessment and plan (1) CVA (cerebral vascular accident) Current Visit: Yes Status: Chronic Assessment and plan: No acute neurological deficits noted during exam. Continue with left hemiparesis. Patient progressing well with physical therapy. We will continue with current plan of care and therapy. Qualifiers: CVA mechanism: occlusion Precerebral and cerebral artery: unspecified precerebral artery Qualified Code(s): I63.20 - Cerebral infarction due to unspecified occlusion or stenosis of unspecified precerebral arteries (2) Right sided sciatica Current Visit: Yes Status: Acute Assessment and plan: Patient with complaints of continued right sciatic type radiculopathy, which has improved since removal of the bladder stimulator. Will continue to monitor, although her pain has been slowly resolving. - Time Spent With Patient less than 15 minutes - Subjective Interval history: Patient appears relaxed and currently denies any discomforts, palpitations or dyspnea. She states she feels therapy is been improving her strength. Patient had a bladder stimulator removed due to hematoma site. Surgical incision appears dry and intact. Patient states that her radicular symptoms to the right leg have diminished somewhat since removal of the stimulator - Constitutional Vitals: Temp Pulse Resp BP Pulse Ox 97.7 F 64 14 126/65 92 07/28/17 06:00 07/28/17 06:00 07/28/17 06:00 07/28/17 06:00 07/28/17 06:00 General appearance: Present: A&O X 3, pleasant, no acute distress, answers questions appropriately - Head Head exam: Present: atraumatic, normocephalic - Eye Eye exam: Present: PERRL, conjuntiva pink, sclera anicteric Pupils: Present: PERRL - Neck Neck exam general surgery: Present: supple, trachea midline. Absent: lymphadenopathy - Respiratory Respiratory exam: Present: CTAB. Absent: accessory muscle use, rales, rhonchi, wheezes - Cardiovascular Cardiovascular exam: Present: RRR, +S1, +S2. Absent: diastolic murmur, gallop, rubs, systolic murmur - GI/Abdominal GI/Abdominal exam: Present: normal bowel sounds, soft, no peritoneal signs. Absent: distended, tenderness - Extremities Exam Extremities exam: Present: warm, radial pulses palpable and symmetrical. Absent : calf tenderness, cyanotic, pedal edema - Neurological Exam Neurological exam: Present: CN II-XII intact, oriented X3. Absent: pronater drift, facial droop, speech deficit Additional comments: Patient continues with left hemiparesis. LE 1/5 and RE 5/5. No acute focal motor deficits noted. - Skin Skin exam: Present: dry, intact Additional comments: right abd flank surgical site remains dry and intact. Internal Medicine: Result - Labs CBC & Chem 7: 07/24/17 05:15 07/24/17 05:15 - ABG Interpretation ABG results: PT/INR, D-dimer PT 12.3 Seconds (9.4-12.1) H 07/19/17 05:30 - VTE Documentation of Mechanical Device: Graduated compression elastic hosiery Consult Discharge Plan - Plan Referrals: Kisha Garcia DO [Primary Care Provider] - Arslan Perkins DO [Non-Partnered Physician] - 08/07/17 (appt with Dr. Perkins on 08/07 )
[2017-07-29] MEDS: Magnesium Oxide 400 MG TABLET PO SCH (11:02)
--- NOTE | 2017-07-29 16:34 | Internal Med Progress Note ---
Date of Encounter: 07/29/17 Time of Encounter: 16:34 - Assessment and plan (1) Physical deconditioning Current Visit: Yes Status: Acute Assessment and plan: She is to be returned to effectiveness with therapies and will follow, expectantly. (2) CVA (cerebral vascular accident) Current Visit: Yes Status: Chronic Assessment and plan: Remote but with recent anemia and hospitalization, has lost function and is here to regain strength and stability as possible. Qualifiers: CVA mechanism: occlusion Precerebral and cerebral artery: unspecified precerebral artery Qualified Code(s): I63.20 - Cerebral infarction due to unspecified occlusion or stenosis of unspecified precerebral arteries (3) Urinary incontinence Current Visit: Yes Status: Acute Assessment and plan: As previously noted, she is status post recent implantation of a bladder stimulator and had complications of hematoma with sciaticalike pain and is to apparently have this removed or at least reassessed by her urologist on 2017. We have been instructed not to change dressings until seen by them. Qualifiers: Urinary Incontinence type: unspecified incontinence Qualified Code(s): R32 - Unspecified urinary incontinence (4) Nausea Current Visit: Yes Status: Acute Assessment and plan: The etiology is unclear. Previous evaluation has failed to indicate problems. Will check liver enzymes and pancreats enzymes in order to screen. - Time Spent With Patient 25 - 35 minutes - Subjective Interval history: She is having nausea and diminished appetite. We reviewed this from last fall. She states that it finally resolved, spontaneously. She states that nothing was ever really found to help it. She is not sure about what is causing this. She denies abdominal pain, dizziness or vertigo, abdominal cramping or bloating , etc. She is having normal bowel movements. She denies other interval change. Patient has no complaint of chest discomfort, dyspnea, orthopnea, palpitations, nausea or vomiting, constipation or diarrhea, other changes in bowel habits, difficulty with urination, rash or itching, or other new complaints, except as mentioned above. Review of systems is otherwise unremarkable. - Constitutional Vitals: Temp Pulse Resp BP Pulse Ox 98 F 79 18 135/68 94 07/29/17 07:00 07/29/17 07:00 07/29/17 07:00 07/29/17 07:00 07/29/17 07:00 General appearance: Present: A&O X 3, pleasant, no acute distress, answers questions appropriately Exam: Examination: (Except as mentioned above): General: In no apparent distress. Alert and oriented 3. Nondiaphoretic. Head: Atraumatic and normocephalic. Respiratory: No use of accessory muscles. Lungs are clear throughout. Normal airflow. Cardiovascular: Regular rate and rhythm without murmur appreciated. Abdomen: Bowel sounds are normal. No hepatosplenomegaly mass or tenderness appreciated. Obese and therefore difficult to palpate deeply.Patient is examined upright in chair and this also limits exam. Extremities: No cyanosis clubbing or edema. Skin: Warm and non-diaphoretic with no new lesions noted. She still has dense left hemiparesis. Internal Medicine: Result - Labs CBC & Chem 7: 07/24/17 05:15 07/24/17 05:15 - ABG Interpretation ABG results: PT/INR, D-dimer PT 12.3 Seconds (9.4-12.1) H 07/19/17 05:30 - VTE Documentation of Mechanical Device: Graduated compression elastic hosiery Consult Discharge Plan - Plan Referrals: Kisha Garcia DO [Primary Care Provider] - Arslan Perkins DO [Non-Partnered Physician] - 08/07/17 (appt with Dr. Perkins on 08/07 )
[2017-07-30 05:19] LABS: Alanine Aminotransferase 14 Units/L (7-52); Albumin 3.5 g/dL (3.5-5.7); Albumin/Globulin Ratio 1.1 (1.1-2.2); Alkaline Phosphatase 129 Units/L (34-104); Amylase 30 Units/L (29-103); Aspartate Amino Transferase 22 Units/L (13-39); BUN/Creatinine Ratio 21 (6-26); Bilirubin,Total 0.9 mg/dL (0.3-1.0); Blood Urea Nitrogen 11 mg/dL (8-23); Calcium 9.4 mg/dL (8.6-10.3); Carbon Dioxide 29 mEq/L (23-29); Chloride 101 mEq/L (98-107); Globulin 3.2 g/dL (2.4-3.5); Glucose 121 mg/dL (70-105); Lipase 39 Units/L (11-82); Osmolality,Calculated 283 (280-300); Potassium 3.4 mEq/L (3.5-5.1); Sodium 136 mEq/L (136-145); Total Protein 6.7 g/dL (6.4-8.9); eGFR For African Americans > 60 (> 60); eGFR For Non-African Americans > 60 (> 60)
--- NOTE | 2017-07-30 05:42 | Internal Med Progress Note ---
Date of Encounter: 07/30/17 Time of Encounter: 05:41 - Assessment and plan (1) Physical deconditioning Current Visit: Yes Status: Acute Assessment and plan: She will continue therapies, as planned. (2) CVA (cerebral vascular accident) Current Visit: Yes Status: Chronic Assessment and plan: Clinically stable. We will continue home regimen and follow. Qualifiers: CVA mechanism: occlusion Precerebral and cerebral artery: unspecified precerebral artery Qualified Code(s): I63.20 - Cerebral infarction due to unspecified occlusion or stenosis of unspecified precerebral arteries (3) Urinary incontinence Current Visit: Yes Status: Acute Assessment and plan: She is to be seen by her urologist on 08/03/2017. We have been instructed not to change dressings until seen by them. Qualifiers: Urinary Incontinence type: unspecified incontinence Qualified Code(s): R32 - Unspecified urinary incontinence (4) Nausea Current Visit: Yes Status: Acute Assessment and plan: We will continue to follow. - Time Spent With Patient 25 - 35 minutes - Subjective Interval history: She is still having pain in the right hip. She states it is actually improving. She states that her appetite was actually better yesterday. She denies other interval change. Patient has no complaint of chest discomfort, dyspnea, orthopnea, palpitations, nausea or vomiting, constipation or diarrhea, other changes in bowel habits, difficulty with urination, rash or itching, or other new complaints, except as mentioned above. Review of systems is otherwise unremarkable. - Constitutional Vitals: Temp Pulse Resp BP Pulse Ox 97.9 F 89 16 100/68 95 07/29/17 19:10 07/29/17 19:10 07/29/17 19:10 07/29/17 19:10 07/29/17 19:10 General appearance: Present: pleasant, no acute distress, answers questions appropriately Exam: Examination: (Except as mentioned above): General: In no apparent distress. Alert and oriented 3. Nondiaphoretic. Head: Atraumatic and normocephalic. Respiratory: No use of accessory muscles. Lungs are clear throughout. Normal airflow. Cardiovascular: Regular rate and rhythm without murmur appreciated. Abdomen: Bowel sounds are normal. No hepatosplenomegaly mass or tenderness appreciated. Obese and therefore difficult to palpate deeply. Extremities: No cyanosis clubbing or edema. Skin: Warm and non-diaphoretic with no new lesions noted. Still with dense hemiparesis. Internal Medicine: Result - Labs CBC & Chem 7: 07/24/17 05:15 07/30/17 04:22 Labs: BMP 07/30/17 04:22 Sodium 136 Potassium 3.4 L Chloride 101 Carbon Dioxide 29 BUN 11 Creatinine 0.52 L Glucose 121 H Calcium 9.4 Liver Function 07/30/17 Range/Units 04:22 Total Bilirubin 0.9 (0.3-1.0) mg/dL AST 22 (13-39) Units/L ALT 14 (7-52) Units/L Alkaline Phosphatase 129 H (34-104) Units/L Albumin 3.5 (3.5-5.7) g/dL - ABG Interpretation ABG results: PT/INR, D-dimer PT 12.3 Seconds (9.4-12.1) H 07/19/17 05:30 - VTE Documentation of Mechanical Device: Graduated compression elastic hosiery Consult Discharge Plan - Plan Referrals: Kisha Garcia DO [Primary Care Provider] - Arslan Perkins DO [Non-Partnered Physician] - 08/07/17 (appt with Dr. Perkins on 08/07 )
[2017-07-30] MEDS: Magnesium Oxide 400 MG TABLET PO SCH (10:01)
[2017-07-30] MEDS: *HR* OxyCODONE/APAP 5/325 TABLET PO PRN (19:53)
[2017-07-31 06:06] LABS: Basophils % 0.7 %; Eosinophils # 0.1 K/mcL (0.0-0.6); Eosinophils % 4.9 %; Hematocrit 36.6 % (35.3-44.9); Hemoglobin 11.7 g/dL (11.5-15.4); Immature Granulocytes % 0.4 % (0-4); Lymphocytes # 0.9 K/mcL (0.6-4.6); Lymphocytes % 31.1 %; Mean Corpuscular Hemoglobin 29.5 pg (28.0-33.3); Mean Corpuscular Volume 92.4 fL (83.0-100.0); Mean Platelet Volume 10.4 fL (9.4-12.4); Monocytes # 0.5 K/mcL (0.0-1.3); Monocytes % 18.4 %; Neutrophils # 1.3 K/mcL (1.6-8.9); Platelet Count 269 K/mcL (140-400); Red Blood Count 3.96 M/mcL (3.82-4.97); Red Cell Distribution Width 17.2 % (11.5-14.5); Segmented Neutrophils % 44.5 %
[2017-07-31 06:27] LABS: Anisocytosis 1+ (Not Present); Platelet Estimate Normal (Normal)
[2017-07-31 06:28] LABS: Macrocytosis Present (Not Present)
[2017-07-31 06:30] LABS: BUN/Creatinine Ratio 18 (6-26); Blood Urea Nitrogen 9 mg/dL (8-23); Calcium 9.3 mg/dL (8.6-10.3); Carbon Dioxide 29 mEq/L (23-29); Chloride 102 mEq/L (98-107); Glucose 123 mg/dL (70-105); Osmolality,Calculated 284 (280-300); Potassium 3.6 mEq/L (3.5-5.1); Sodium 137 mEq/L (136-145); eGFR For African Americans > 60 (> 60); eGFR For Non-African Americans > 60 (> 60)
[2017-07-31] MEDS: Magnesium Oxide 400 MG TABLET PO SCH (09:20)
[2017-07-31] MEDS: *HR* OxyCODONE/APAP 5/325 TABLET PO PRN ×2 (10:26→20:56)
--- NOTE | 2017-07-31 10:26 | Internal Med Progress Note ---
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 no new neuro deficits at this time. Qualifiers: CVA mechanism: occlusion Precerebral and cerebral artery: unspecified precerebral artery Qualified Code(s): I63.20 - Cerebral infarction due to unspecified occlusion or stenosis of unspecified precerebral arteries (2) Physical deconditioning Current Visit: Yes Status: Acute Assessment and plan: continue PT/OT. will follow progress. (3) Right sided sciatica Current Visit: Yes Status: Acute Assessment and plan: improving. continue therapy and percocet for pain as needed. - Subjective Interval history: Participating well with therapy. States has not been sleeping well at night. Patient continues to complain about right-sided sciatic but states that has improved. Meza catheter in place and draining normal. States bowel movement last night. Denies any other new issues at this time. Left hemiplegia from old CVA. to follow up with urology on 08/03. instructed not to change drsg till follow up. - Constitutional Vitals: Temp Pulse Resp BP Pulse Ox 98.0 F 59 14 130/69 91 07/31/17 07:11 07/31/17 07:11 07/31/17 07:11 07/31/17 07:11 07/31/17 07:11 General appearance: Present: A&O X 3, pleasant, no acute distress, answers questions appropriately - Head Head exam: Present: atraumatic, normocephalic - Eye Eye exam: Present: PERRL, conjuntiva pink, sclera anicteric Pupils: Present: PERRL - Neck Neck exam general surgery: Present: supple, trachea midline. Absent: lymphadenopathy - Respiratory Respiratory exam: Present: CTAB. Absent: accessory muscle use, rales, rhonchi, wheezes - Cardiovascular Cardiovascular exam: Present: RRR, +S1, +S2. Absent: diastolic murmur, gallop, rubs, systolic murmur - GI/Abdominal GI/Abdominal exam: Present: normal bowel sounds, soft, no peritoneal signs. Absent: distended, tenderness - Extremities Exam Extremities exam: Present: warm, radial pulses palpable and symmetrical. Absent : calf tenderness, cyanotic, pedal edema Additional comments: left hemiplegia - Neurological Exam Neurological exam: Present: CN II-XII intact, oriented X3, no focal deficits. Absent: pronater drift, facial droop, speech deficit - Skin Skin exam: Present: dry, intact Internal Medicine: Result - Labs CBC & Chem 7: 07/31/17 05:25 07/31/17 05:25 Labs: Short CBC 07/31/17 Range/Units 05:25 WBC 2.8 L (4.3-11.1) K/mcL Hgb 11.7 (11.5-15.4) g/dL Hct 36.6 (35.3-44.9) % Plt Count 269 (140-400) K/mcL Neutrophils # 1.3 L (1.6-8.9) K/mcL BMP 07/31/17 05:25 Sodium 137 Potassium 3.6 Chloride 102 Carbon Dioxide 29 BUN 9 Creatinine 0.50 L Glucose 123 H Calcium 9.3 - ABG Interpretation ABG results: PT/INR, D-dimer PT 12.3 Seconds (9.4-12.1) H 07/19/17 05:30 - VTE Documentation of Mechanical Device: Graduated compression elastic hosiery Consult Discharge Plan - Plan Referrals: Kisha Garcia DO [Primary Care Provider] - Arslan Perkins DO [Non-Partnered Physician] - 08/07/17 (appt with Dr. Perkins on 08/07 )
--- NOTE | 2017-08-01 11:08 | Internal Med Progress Note ---
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 no new neuro deficits at this time. Qualifiers: CVA mechanism: occlusion Precerebral and cerebral artery: unspecified precerebral artery Qualified Code(s): I63.20 - Cerebral infarction due to unspecified occlusion or stenosis of unspecified precerebral arteries (2) Physical deconditioning Current Visit: Yes Status: Acute Assessment and plan: continue PT/OT. will follow progress. (3) Right sided sciatica Current Visit: Yes Status: Acute Assessment and plan: improving. continue therapy and percocet for pain as needed. - Time Spent With Patient less than 15 minutes - Subjective Interval history: Participating well with therapy. Patient continues to complain about right- sided sciatic but states that has improved, 3/10 pain on scale. Meza catheter in place and draining normal. States she feels rested and slept well last night. States bowel movement last night. Denies any other new issues at this time. Left hemiplegia from old CVA. to follow up with urology on 08/03. instructed not to change drsg till follow up. Maintaining appetite and hydration. - Constitutional Vitals: Temp Pulse Resp BP Pulse Ox 98.0 F 78 16 125/59 94 08/01/17 07:25 08/01/17 07:25 08/01/17 07:25 08/01/17 07:25 08/01/17 07:25 General appearance: Present: A&O X 3, pleasant, no acute distress, answers questions appropriately - Head Head exam: Present: atraumatic, normocephalic - Eye Eye exam: Present: PERRL, conjuntiva pink, sclera anicteric Pupils: Present: PERRL - Neck Neck exam general surgery: Present: supple, trachea midline. Absent: lymphadenopathy - Respiratory Respiratory exam: Present: CTAB. Absent: accessory muscle use, rales, rhonchi, wheezes - Cardiovascular Cardiovascular exam: Present: RRR, +S1, +S2. Absent: diastolic murmur, gallop, rubs, systolic murmur - GI/Abdominal GI/Abdominal exam: Present: normal bowel sounds, soft, no peritoneal signs. Absent: distended, tenderness - Extremities Exam Extremities exam: Present: warm, radial pulses palpable and symmetrical. Absent : calf tenderness, cyanotic, pedal edema Additional comments: Left hemiplegia from old CVA. - Neurological Exam Neurological exam: Present: CN II-XII intact, oriented X3, no focal deficits. Absent: pronater drift, facial droop, speech deficit - Skin Skin exam: Present: dry, intact Internal Medicine: Result - Labs CBC & Chem 7: 07/31/17 05:25 07/31/17 05:25 - ABG Interpretation ABG results: PT/INR, D-dimer PT 12.3 Seconds (9.4-12.1) H 07/19/17 05:30 - VTE Documentation of Mechanical Device: Graduated compression elastic hosiery Consult Discharge Plan - Plan Referrals: Kisha Garcia DO [Primary Care Provider] - Arslan Perkins DO [Non-Partnered Physician] - 08/07/17 (appt with Dr. Perkins on 08/07 )
[2017-08-01] MEDS: Magnesium Oxide 400 MG TABLET PO SCH (11:37)
[2017-08-01 12:24] LABS: Basophils % 0.4 %; Eosinophils # 0.2 K/mcL (0.0-0.6); Eosinophils % 3.7 %; Hematocrit 41.1 % (35.3-44.9); Immature Granulocytes % 0.2 % (0-4); Lymphocytes # 0.9 K/mcL (0.6-4.6); Lymphocytes % 19.3 %; Mean Corpuscular HGB Conc 31.6 g/dL (31.6-35.5); Mean Corpuscular Hemoglobin 29.7 pg (28.0-33.3); Mean Corpuscular Volume 93.8 fL (83.0-100.0); Mean Platelet Volume 10.4 fL (9.4-12.4); Monocytes # 0.4 K/mcL (0.0-1.3); Monocytes % 8.9 %; Neutrophils # 3.1 K/mcL (1.6-8.9); Platelet Count 304 K/mcL (140-400); Red Blood Count 4.38 M/mcL (3.82-4.97); Red Cell Distribution Width 17.2 % (11.5-14.5); Segmented Neutrophils % 67.5 %
[2017-08-01] MEDS: Melatonin 3 MG TABLET PO PRN (22:55)
[2017-08-02 05:31] LABS: Basophils % 0.6 %; Eosinophils # 0.3 K/mcL (0.0-0.6); Eosinophils % 8.6 %; Hematocrit 38.1 % (35.3-44.9); Hemoglobin 12.1 g/dL (11.5-15.4); Immature Granulocytes % 0.3 % (0-4); Lymphocytes # 1.1 K/mcL (0.6-4.6); Lymphocytes % 32.8 %; Mean Corpuscular HGB Conc 31.8 g/dL (31.6-35.5); Mean Corpuscular Hemoglobin 29.5 pg (28.0-33.3); Mean Corpuscular Volume 92.9 fL (83.0-100.0); Mean Platelet Volume 10.2 fL (9.4-12.4); Monocytes # 0.4 K/mcL (0.0-1.3); Monocytes % 11.2 %; Neutrophils # 1.6 K/mcL (1.6-8.9); Platelet Count 239 K/mcL (140-400); Red Cell Distribution Width 17.2 % (11.5-14.5); Segmented Neutrophils % 46.5 %
[2017-08-02] MEDS: *HR* OxyCODONE/APAP 5/325 TABLET PO PRN (06:40)
[2017-08-02] MEDS: Magnesium Oxide 400 MG TABLET PO SCH (12:17)
--- NOTE | 2017-08-02 14:40 | Internal Med Progress Note ---
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 no new neuro deficits at this time. Qualifiers: CVA mechanism: occlusion Precerebral and cerebral artery: unspecified precerebral artery Qualified Code(s): I63.20 - Cerebral infarction due to unspecified occlusion or stenosis of unspecified precerebral arteries (2) Physical deconditioning Current Visit: Yes Status: Acute Assessment and plan: continue PT/OT. will follow progress. (3) Right sided sciatica Current Visit: Yes Status: Acute Assessment and plan: improving. continue therapy and percocet for pain as needed. - Time Spent With Patient less than 15 minutes - Subjective Interval history: Participating well with therapy. sciatica pain improving. trialed abulating with hemiwalker with therapy. Meza catheter in place and draining normal. States she feels rested and slept well last night after taking melatonin. States bowel movement last night. Denies any other new issues at this time. Left hemiplegia from old CVA. to follow up with urology on 08/03. instructed not to change drsg till follow up. Maintaining appetite and hydration. - Constitutional Vitals: Temp Pulse Resp BP Pulse Ox 97.9 F 54 12 138/56 91 08/02/17 08:00 08/02/17 08:00 08/02/17 08:00 08/02/17 08:00 08/02/17 08:00 General appearance: Present: A&O X 3, pleasant, no acute distress, answers questions appropriately - Head Head exam: Present: atraumatic, normocephalic - Eye Eye exam: Present: PERRL, conjuntiva pink, sclera anicteric Pupils: Present: PERRL - Neck Neck exam general surgery: Present: supple, trachea midline. Absent: lymphadenopathy - Respiratory Respiratory exam: Present: CTAB. Absent: accessory muscle use, rales, rhonchi, wheezes - Cardiovascular Cardiovascular exam: Present: RRR, +S1, +S2. Absent: diastolic murmur, gallop, rubs, systolic murmur - GI/Abdominal GI/Abdominal exam: Present: normal bowel sounds, soft, no peritoneal signs. Absent: distended, tenderness - Extremities Exam Extremities exam: Present: warm, radial pulses palpable and symmetrical. Absent : calf tenderness, cyanotic, pedal edema Additional comments: left hemiplegia - Neurological Exam Neurological exam: Present: CN II-XII intact, oriented X3, no focal deficits. Absent: pronater drift, facial droop, speech deficit - Skin Skin exam: Present: dry, intact Internal Medicine: Result - Labs CBC & Chem 7: 08/02/17 05:10 07/31/17 05:25 Labs: Short CBC 08/02/17 Range/Units 05:10 WBC 3.4 L (4.3-11.1) K/mcL Hgb 12.1 (11.5-15.4) g/dL Hct 38.1 (35.3-44.9) % Plt Count 239 (140-400) K/mcL Neutrophils # 1.6 (1.6-8.9) K/mcL - ABG Interpretation ABG results: PT/INR, D-dimer PT 12.3 Seconds (9.4-12.1) H 07/19/17 05:30 - VTE Documentation of Mechanical Device: Graduated compression elastic hosiery Consult Discharge Plan - Plan Referrals: Kisha Garcia DO [Primary Care Provider] - Arslan Perkins DO [Non-Partnered Physician] - 08/07/17 (appt with Dr. Perkins on 08/07 )
[2017-08-02] MEDS: Melatonin 3 MG TABLET PO PRN (21:16)
[2017-08-03] MEDS: Magnesium Oxide 400 MG TABLET PO SCH (09:41)
--- NOTE | 2017-08-03 13:56 | Internal Med Progress Note ---
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 no new neuro deficits at this time. Qualifiers: CVA mechanism: occlusion Precerebral and cerebral artery: unspecified precerebral artery Qualified Code(s): I63.20 - Cerebral infarction due to unspecified occlusion or stenosis of unspecified precerebral arteries (2) Physical deconditioning Current Visit: Yes Status: Acute Assessment and plan: continue PT/OT. will follow progress. (3) Right sided sciatica Current Visit: Yes Status: Acute Assessment and plan: improving. continue therapy and percocet for pain as needed. - Time Spent With Patient less than 15 minutes - Subjective Interval history: Participating well with therapy. sciatica pain improving. Meza catheter in place and draining normal. States bowel movement last night. Denies any other new issues at this time. Left hemiplegia from old CVA. to follow up with urology on 08/03. incision on right buttocks draining. Maintaining appetite and hydration. - Constitutional Vitals: Temp Pulse Resp BP Pulse Ox 97.7 F 60 16 154/83 94 08/03/17 07:23 08/03/17 07:23 08/03/17 07:23 08/03/17 07:23 08/03/17 07:23 General appearance: Present: A&O X 3, pleasant, no acute distress, answers questions appropriately - Head Head exam: Present: atraumatic, normocephalic - Eye Eye exam: Present: PERRL, conjuntiva pink, sclera anicteric Pupils: Present: PERRL - Neck Neck exam general surgery: Present: supple, trachea midline. Absent: lymphadenopathy - Respiratory Respiratory exam: Present: CTAB. Absent: accessory muscle use, rales, rhonchi, wheezes - Cardiovascular Cardiovascular exam: Present: RRR, +S1, +S2. Absent: diastolic murmur, gallop, rubs, systolic murmur - GI/Abdominal GI/Abdominal exam: Present: normal bowel sounds, soft, no peritoneal signs. Absent: distended, tenderness - Extremities Exam Extremities exam: Present: warm, radial pulses palpable and symmetrical. Absent : calf tenderness, cyanotic, pedal edema Additional comments: left hemiplegia from old CVA. - Incison Comments: right buttocks incision well approximated with mod amt of serousanguinous drainage. - Neurological Exam Neurological exam: Present: CN II-XII intact, oriented X3, no focal deficits. Absent: pronater drift, facial droop, speech deficit - Skin Skin exam: Present: dry, intact Internal Medicine: Result - Labs CBC & Chem 7: 08/02/17 05:10 07/31/17 05:25 - ABG Interpretation ABG results: PT/INR, D-dimer PT 12.3 Seconds (9.4-12.1) H 07/19/17 05:30 - VTE Documentation of Mechanical Device: Graduated compression elastic hosiery Consult Discharge Plan - Plan Referrals: Kisha Garcia DO [Primary Care Provider] - Arslan Perkins DO [Non-Partnered Physician] - 08/07/17 (appt with Dr. Perkins on 08/07 )
[2017-08-03] MEDS: *HR* OxyCODONE/APAP 5/325 TABLET PO PRN (17:35)
[2017-08-03] MEDS: Melatonin 3 MG TABLET PO PRN (21:20)
[2017-08-04] MEDS: Magnesium Oxide 400 MG TABLET PO SCH (09:06)
--- NOTE | 2017-08-04 14:35 | Internal Med Progress Note ---
Date of Encounter: 08/04/17 Time of Encounter: 14:34 - Assessment and plan (1) CVA (cerebral vascular accident) Current Visit: Yes Status: Chronic Assessment and plan: No acute neurological deficits noted during exam. Continue with left hemiparesis. Patient progressing well with physical therapy. We will continue with current plan of care and therapy. Qualifiers: CVA mechanism: occlusion Precerebral and cerebral artery: unspecified precerebral artery Qualified Code(s): I63.20 - Cerebral infarction due to unspecified occlusion or stenosis of unspecified precerebral arteries (2) Right sided sciatica Current Visit: Yes Status: Acute Assessment and plan: Patient with complaints of continued right sciatic type radiculopathy, which has improved since removal of the bladder stimulator. Will continue to monitor, although her pain has been slowly resolving. - Subjective Interval history: Patient appears relaxed and currently denies any discomforts, palpitations or dyspnea. She states she feels therapy is been improving her strength. Patient had a bladder stimulator removed due to hematoma site. Surgical incision appears dry and intact. Patient states that her radicular symptoms to the right leg have diminished somewhat since removal of the stimulator - Constitutional Vitals: Temp Pulse Resp BP Pulse Ox 98.0 F 70 14 135/64 94 08/04/17 07:00 08/04/17 07:00 08/04/17 07:00 08/04/17 07:00 08/04/17 07:00 General appearance: Present: A&O X 3, pleasant, no acute distress, answers questions appropriately - Head Head exam: Present: atraumatic, normocephalic - Eye Eye exam: Present: PERRL, conjuntiva pink, sclera anicteric Pupils: Present: PERRL - Neck Neck exam general surgery: Present: supple, trachea midline. Absent: lymphadenopathy - Respiratory Respiratory exam: Present: CTAB. Absent: accessory muscle use, rales, rhonchi, wheezes - Cardiovascular Cardiovascular exam: Present: RRR, +S1, +S2. Absent: diastolic murmur, gallop, rubs, systolic murmur - GI/Abdominal GI/Abdominal exam: Present: normal bowel sounds, soft, no peritoneal signs. Absent: distended, tenderness - Extremities Exam Extremities exam: Present: warm, radial pulses palpable and symmetrical. Absent : calf tenderness, cyanotic, pedal edema - Neurological Exam Neurological exam: Present: CN II-XII intact, oriented X3. Absent: pronater drift, facial droop, speech deficit Additional comments: Patient continues with right hemiparesis - Skin Skin exam: Present: dry, intact Internal Medicine: Result - Labs CBC & Chem 7: 08/02/17 05:10 07/31/17 05:25 - ABG Interpretation ABG results: PT/INR, D-dimer PT 12.3 Seconds (9.4-12.1) H 07/19/17 05:30 - VTE Documentation of Mechanical Device: Intermittent pneumatic compression device Consult Discharge Plan - Plan Referrals: Kisha Garcia DO [Primary Care Provider] - Arslan Perkins DO [Non-Partnered Physician] - 08/07/17 (appt with Dr. Perkins on 08/07 )
[2017-08-04] MEDS: Melatonin 3 MG TABLET PO PRN (22:05)
[2017-08-05] MEDS: *HR* OxyCODONE/APAP 5/325 TABLET PO PRN ×2 (00:51→21:13)
--- NOTE | 2017-08-05 09:32 | Internal Med Progress Note ---
Date of Encounter: 08/05/17 Time of Encounter: 09:30 - Assessment and plan (1) CVA (cerebral vascular accident) Current Visit: Yes Status: Chronic Assessment and plan: no new change getting her rehab doing well Qualifiers: CVA mechanism: occlusion Precerebral and cerebral artery: unspecified precerebral artery Qualified Code(s): I63.20 - Cerebral infarction due to unspecified occlusion or stenosis of unspecified precerebral arteries (2) Urinary incontinence Current Visit: Yes Status: Chronic Assessment and plan: stable no new change Qualifiers: Urinary Incontinence type: unspecified incontinence Qualified Code(s): R32 - Unspecified urinary incontinence (3) Physical deconditioning Current Visit: Yes Status: Acute Assessment and plan: getting Rehab and is improving - Time Spent With Patient 25 - 35 minutes - Subjective Interval history: No new complains feels well no weakness improving her ability to do things via rehab - Constitutional Vitals: Temp Pulse Resp BP Pulse Ox 97.6 F 73 16 103/63 97 08/04/17 19:00 08/04/17 19:00 08/04/17 19:00 08/04/17 19:00 08/04/17 19:00 General appearance: Present: A&O X 3, pleasant, no acute distress, answers questions appropriately - Eye Eye exam: Present: EOMI - Neck Neck exam general surgery: Present: supple. Absent: tenderness, nuchal rigidity - Respiratory Respiratory exam: Present: CTAB. Absent: respiratory distress, stridor, wheezes , tachypnea - Cardiovascular Cardiovascular exam: Present: RRR, +S1, +S2. Absent: irregular rhythm, JVD - GI/Abdominal GI/Abdominal exam: Present: normal bowel sounds, soft. Absent: distended, guarding, rebound, rigid, tenderness - Extremities Exam Extremities exam: Absent: pedal edema - Neurological Exam Neurological exam: Absent: facial droop (focal defecit on the left sude upper and lower has a brace left leg helping her to move / No new change neurologically ), speech deficit Internal Medicine: Result - Labs CBC & Chem 7: 08/02/17 05:10 07/31/17 05:25 - ABG Interpretation ABG results: PT/INR, D-dimer PT 12.3 Seconds (9.4-12.1) H 07/19/17 05:30 - VTE Documentation of Mechanical Device: Intermittent pneumatic compression device Consult Discharge Plan - Plan Referrals: Kisha Garcia DO [Primary Care Provider] - Arslan Perkins DO [Non-Partnered Physician] - 08/07/17 (appt with Dr. Perkins on 08/07 )
[2017-08-05] MEDS: Magnesium Oxide 400 MG TABLET PO SCH (09:44)
[2017-08-05] MEDS: Melatonin 3 MG TABLET PO PRN (21:13)
[2017-08-06] MEDS: Magnesium Oxide 400 MG TABLET PO SCH (08:49)
[2017-08-06] MEDS: Melatonin 3 MG TABLET PO PRN (19:29)
[2017-08-06] MEDS: *HR* OxyCODONE/APAP 5/325 TABLET PO PRN (19:29)
[2017-08-07 05:13] LABS: Basophils % 0.3 %; Eosinophils # 0.2 K/mcL (0.0-0.6); Eosinophils % 7.3 %; Hematocrit 38.7 % (35.3-44.9); Hemoglobin 12.4 g/dL (11.5-15.4); Immature Granulocytes % 0.7 % (0-4); Lymphocytes # 0.8 K/mcL (0.6-4.6); Lymphocytes % 26.1 %; Mean Corpuscular Volume 93.5 fL (83.0-100.0); Mean Platelet Volume 10.8 fL (9.4-12.4); Monocytes # 0.6 K/mcL (0.0-1.3); Monocytes % 18.5 %; Neutrophils # 1.4 K/mcL (1.6-8.9); Platelet Count 216 K/mcL (140-400); Red Blood Count 4.14 M/mcL (3.82-4.97); Segmented Neutrophils % 47.1 %
[2017-08-07 05:29] LABS: BUN/Creatinine Ratio 21 (6-26); Blood Urea Nitrogen 12 mg/dL (8-23); Calcium 9.3 mg/dL (8.6-10.3); Carbon Dioxide 30 mEq/L (23-29); Chloride 103 mEq/L (98-107); Glucose 123 mg/dL (70-105); Osmolality,Calculated 289 (280-300); Potassium 3.5 mEq/L (3.5-5.1); Sodium 139 mEq/L (136-145); eGFR For African Americans > 60 (> 60); eGFR For Non-African Americans > 60 (> 60)
[2017-08-07] MEDS: Magnesium Oxide 400 MG TABLET PO SCH (08:16)
--- NOTE | 2017-08-07 09:32 | Internal Med Progress Note ---
Date of Encounter: 08/07/17 Time of Encounter: 08:00 - Assessment and plan (1) CVA (cerebral vascular accident) Current Visit: Yes Status: Chronic Assessment and plan: No acute neurological deficits noted during exam. Continue with left hemiparesis. Patient progressing well with physical therapy. We will continue with current plan of care and therapy. Qualifiers: CVA mechanism: occlusion Precerebral and cerebral artery: unspecified precerebral artery Qualified Code(s): I63.20 - Cerebral infarction due to unspecified occlusion or stenosis of unspecified precerebral arteries (2) Right sided sciatica Current Visit: Yes Status: Acute Assessment and plan: Patient with complaints of continued right sciatic type radiculopathy, which has improved since removal of the bladder stimulator. Will continue to monitor, although her pain has been slowly resolving. - Time Spent With Patient less than 15 minutes - Subjective Interval history: Patient appears relaxed and currently denies any discomforts, palpitations or dyspnea. She states she feels therapy is been improving her strength. Patient had a bladder stimulator removed due to hematoma site. Surgical incision appears dry and intact. Patient states that her radicular symptoms to the right leg have diminished somewhat since removal of the stimulator - Constitutional Vitals: Temp Pulse Resp BP Pulse Ox 98.1 F 84 16 123/64 94 08/07/17 07:07 08/07/17 07:07 08/07/17 07:07 08/07/17 07:07 08/07/17 07:07 General appearance: Present: A&O X 3, pleasant, no acute distress, answers questions appropriately - Head Head exam: Present: atraumatic, normocephalic - Eye Eye exam: Present: PERRL, conjuntiva pink, sclera anicteric Pupils: Present: PERRL - Neck Neck exam general surgery: Present: supple, trachea midline. Absent: lymphadenopathy - Respiratory Respiratory exam: Present: CTAB. Absent: accessory muscle use, rales, rhonchi, wheezes - Cardiovascular Cardiovascular exam: Present: RRR, +S1, +S2. Absent: diastolic murmur, gallop, rubs, systolic murmur - GI/Abdominal GI/Abdominal exam: Present: normal bowel sounds, soft, no peritoneal signs. Absent: distended, tenderness - Extremities Exam Extremities exam: Present: warm, radial pulses palpable and symmetrical. Absent : calf tenderness, cyanotic, pedal edema - Neurological Exam Neurological exam: Present: CN II-XII intact, oriented X3. Absent: pronater drift, facial droop, speech deficit Additional comments: Patient with left hemiparesis. - Skin Skin exam: Present: dry, intact Internal Medicine: Result - Labs CBC & Chem 7: 08/07/17 04:45 08/07/17 04:45 Labs: Short CBC 08/07/17 Range/Units 04:45 WBC 3.0 L (4.3-11.1) K/mcL Hgb 12.4 (11.5-15.4) g/dL Hct 38.7 (35.3-44.9) % Plt Count 216 (140-400) K/mcL Neutrophils # 1.4 L (1.6-8.9) K/mcL BMP 08/07/17 04:45 Sodium 139 Potassium 3.5 Chloride 103 Carbon Dioxide 30 H BUN 12 Creatinine 0.56 L Glucose 123 H Calcium 9.3 - ABG Interpretation ABG results: PT/INR, D-dimer PT 12.3 Seconds (9.4-12.1) H 07/19/17 05:30 - VTE Documentation of Mechanical Device: Intermittent pneumatic compression device Consult Discharge Plan - Plan Referrals: Kisha Garcia DO [Primary Care Provider] - Arslan Perkins DO [Non-Partnered Physician] - 08/07/17 (appt with Dr. Perkins on 08/07 )
[2017-08-07] MEDS: *HR* OxyCODONE/APAP 5/325 TABLET PO PRN (20:21)
[2017-08-07] MEDS: Melatonin 3 MG TABLET PO PRN (20:21)
[2017-08-08] MEDS: Magnesium Oxide 400 MG TABLET PO SCH (09:44)
--- NOTE | 2017-08-08 12:38 | Internal Med Progress Note ---
Date of Encounter: 08/08/17 Time of Encounter: 12:36 - Assessment and plan (1) CVA (cerebral vascular accident) Current Visit: Yes Status: Chronic Assessment and plan: No acute neurological deficits noted during exam. Continue with left hemiparesis. Patient progressing well with physical therapy. We will continue with current plan of care and therapy. Qualifiers: CVA mechanism: occlusion Precerebral and cerebral artery: unspecified precerebral artery Qualified Code(s): I63.20 - Cerebral infarction due to unspecified occlusion or stenosis of unspecified precerebral arteries (2) Right sided sciatica Current Visit: Yes Status: Acute Assessment and plan: Patient with complaints of continued right sciatic type radiculopathy, which has improved since removal of the bladder stimulator. Will continue to monitor, although her pain has been slowly resolving. - Subjective Interval history: Patient appears relaxed and currently denies any discomforts, palpitations or dyspnea. She states she feels therapy is been improving her strength. Patient had a bladder stimulator removed due to hematoma site. Surgical incision appears dry and intact. Patient states that her radicular symptoms to the right leg have diminished somewhat since removal of the stimulator - Constitutional Vitals: Temp Pulse Resp BP Pulse Ox 98.0 F 80 18 131/79 95 08/08/17 07:01 08/08/17 07:01 08/08/17 07:01 08/08/17 07:01 08/08/17 07:01 General appearance: Present: A&O X 3, pleasant, no acute distress, answers questions appropriately - Head Head exam: Present: atraumatic, normocephalic - Eye Eye exam: Present: PERRL, conjuntiva pink, sclera anicteric Pupils: Present: PERRL - Neck Neck exam general surgery: Present: supple, trachea midline. Absent: lymphadenopathy - Respiratory Respiratory exam: Present: CTAB. Absent: accessory muscle use, rales, rhonchi, wheezes - Cardiovascular Cardiovascular exam: Present: RRR, +S1, +S2. Absent: diastolic murmur, gallop, rubs, systolic murmur - GI/Abdominal GI/Abdominal exam: Present: normal bowel sounds, soft, no peritoneal signs. Absent: distended, tenderness - Extremities Exam Extremities exam: Present: warm, radial pulses palpable and symmetrical. Absent : calf tenderness, cyanotic, pedal edema - Neurological Exam Neurological exam: Present: CN II-XII intact, oriented X3. Absent: pronater drift, facial droop, speech deficit Additional comments: Left hemiparesis - Skin Skin exam: Present: dry, intact Internal Medicine: Result - Labs CBC & Chem 7: 08/07/17 04:45 08/07/17 04:45 - ABG Interpretation ABG results: PT/INR, D-dimer PT 12.3 Seconds (9.4-12.1) H 07/19/17 05:30 - VTE Documentation of Mechanical Device: Intermittent pneumatic compression device Consult Discharge Plan - Plan Referrals: Kisha Garcia DO [Primary Care Provider] - Arslan Perkins DO [Non-Partnered Physician] - 08/07/17 (appt with Dr. Perkins on 08/07 )
[2017-08-08] MEDS: Melatonin 3 MG TABLET PO PRN (20:07)
[2017-08-09] MEDS: *HR* OxyCODONE/APAP 5/325 TABLET PO PRN ×2 (00:32→21:44)
[2017-08-09] MEDS: Magnesium Oxide 400 MG TABLET PO SCH (10:23)
--- NOTE | 2017-08-09 11:08 | Internal Med Progress Note ---
Date of Encounter: 08/09/17 Time of Encounter: 11:05 - Assessment and plan (1) CVA (cerebral vascular accident) Current Visit: Yes Status: Chronic Assessment and plan: No acute neurological deficits noted during exam. Continue with left hemiparesis. Patient reportedly has been progressing well with physical therapy. We will continue with current plan of care and therapy. Qualifiers: CVA mechanism: occlusion Precerebral and cerebral artery: unspecified precerebral artery Qualified Code(s): I63.20 - Cerebral infarction due to unspecified occlusion or stenosis of unspecified precerebral arteries (2) Right sided sciatica Current Visit: Yes Status: Acute Assessment and plan: Pain has mostly resolved since removal of stimulator. - Subjective Interval history: Patient appears relaxed and currently denies any discomforts, palpitations or dyspnea. States that her radicular symptoms have mostly resolved since removal of stimulator. - Constitutional Vitals: Temp Pulse Resp BP Pulse Ox 98.2 F 71 12 147/92 94 08/09/17 07:00 08/09/17 07:00 08/09/17 07:00 08/09/17 07:00 08/09/17 07:00 General appearance: Present: A&O X 3, pleasant, no acute distress, answers questions appropriately - Head Head exam: Present: atraumatic, normocephalic - Eye Eye exam: Present: PERRL, conjuntiva pink, sclera anicteric Pupils: Present: PERRL - Neck Neck exam general surgery: Present: supple, trachea midline. Absent: lymphadenopathy - Respiratory Respiratory exam: Present: CTAB. Absent: accessory muscle use, rales, rhonchi, wheezes - Cardiovascular Cardiovascular exam: Present: RRR, +S1, +S2. Absent: diastolic murmur, gallop, rubs, systolic murmur - GI/Abdominal GI/Abdominal exam: Present: normal bowel sounds, soft, no peritoneal signs. Absent: distended, tenderness - Extremities Exam Extremities exam: Present: warm, radial pulses palpable and symmetrical. Absent : calf tenderness, cyanotic, pedal edema - Neurological Exam Neurological exam: Present: CN II-XII intact, oriented X3. Absent: pronater drift, facial droop, speech deficit Additional comments: Left hemiparesis. LE 3/5, RE 5/5. - Skin Skin exam: Present: dry, intact Internal Medicine: Result - Labs CBC & Chem 7: 08/07/17 04:45 08/07/17 04:45 - ABG Interpretation ABG results: PT/INR, D-dimer PT 12.3 Seconds (9.4-12.1) H 07/19/17 05:30 - VTE Documentation of Mechanical Device: Intermittent pneumatic compression device Consult Discharge Plan - Plan Referrals: Kisha Garcia DO [Primary Care Provider] - Arslan Perkins DO [Non-Partnered Physician] - 08/07/17 (appt with Dr. Perkins on 08/07 )
[2017-08-09] MEDS: Melatonin 3 MG TABLET PO PRN (21:44)
[2017-08-10] MEDS: *HR* OxyCODONE/APAP 5/325 TABLET PO PRN ×2 (06:50→20:35)
[2017-08-10] MEDS: Magnesium Oxide 400 MG TABLET PO SCH (08:42)
--- NOTE | 2017-08-10 14:04 | Internal Med Progress Note ---
Date of Encounter: 08/10/17 Time of Encounter: 14:02 - Assessment and plan (1) CVA (cerebral vascular accident) Current Visit: Yes Status: Chronic Assessment and plan: No acute neurological deficits noted during exam. Continue with left hemiparesis. Patient reportedly has been progressing well with physical therapy. We will continue with current plan of care and therapy. Qualifiers: CVA mechanism: occlusion Precerebral and cerebral artery: unspecified precerebral artery Qualified Code(s): I63.20 - Cerebral infarction due to unspecified occlusion or stenosis of unspecified precerebral arteries - Subjective Interval history: Patient appears relaxed and currently denies any discomforts, palpitations or dyspnea. States that her radicular symptoms have mostly resolved since removal of stimulator. - Constitutional Vitals: Temp Pulse Resp BP Pulse Ox 98.2 F 61 16 129/68 94 08/10/17 07:51 08/10/17 07:51 08/10/17 07:51 08/10/17 07:51 08/10/17 07:51 General appearance: Present: A&O X 3, pleasant, no acute distress, answers questions appropriately - Head Head exam: Present: atraumatic, normocephalic - Eye Eye exam: Present: PERRL, conjuntiva pink, sclera anicteric Pupils: Present: PERRL - Neck Neck exam general surgery: Present: supple, trachea midline. Absent: lymphadenopathy - Respiratory Respiratory exam: Present: CTAB. Absent: accessory muscle use, rales, rhonchi, wheezes - Cardiovascular Cardiovascular exam: Present: RRR, +S1, +S2. Absent: diastolic murmur, gallop, rubs, systolic murmur - GI/Abdominal GI/Abdominal exam: Present: normal bowel sounds, soft, no peritoneal signs. Absent: distended, tenderness - Extremities Exam Extremities exam: Present: warm, radial pulses palpable and symmetrical. Absent : calf tenderness, cyanotic, pedal edema - Neurological Exam Neurological exam: Present: CN II-XII intact, oriented X3. Absent: pronater drift, facial droop, speech deficit Additional comments: Left hemiparesis with LE 3/5 and RE 5/5. - Skin Skin exam: Present: dry, intact Internal Medicine: Result - Labs CBC & Chem 7: 08/07/17 04:45 08/07/17 04:45 - ABG Interpretation ABG results: PT/INR, D-dimer PT 12.3 Seconds (9.4-12.1) H 07/19/17 05:30 - VTE Documentation of Mechanical Device: Intermittent pneumatic compression device Consult Discharge Plan - Plan Referrals: Kisha Garcia DO [Primary Care Provider] - Arslan Perkins DO [Non-Partnered Physician] - 08/07/17 (appt with Dr. Perkins on 08/07 )
[2017-08-10] MEDS: Melatonin 3 MG TABLET PO PRN (20:35)
[2017-08-11] MEDS: Magnesium Oxide 400 MG TABLET PO SCH (09:06)
--- NOTE | 2017-08-11 11:44 | Internal Med Progress Note ---
Date of Encounter: 08/11/17 Time of Encounter: 11:38 - Assessment and plan (1) CVA (cerebral vascular accident) Current Visit: Yes Status: Chronic Assessment and plan: No acute neurological deficits noted during exam. Continue with left hemiparesis. Patient reportedly has been progressing well with physical therapy. We will continue with current plan of care and therapy. Qualifiers: CVA mechanism: occlusion Precerebral and cerebral artery: unspecified precerebral artery Qualified Code(s): I63.20 - Cerebral infarction due to unspecified occlusion or stenosis of unspecified precerebral arteries - Time Spent With Patient less than 15 minutes - Subjective Interval history: Patient appears relaxed and currently denies any discomforts, palpitations or dyspnea. States that her radicular symptoms have mostly resolved since removal of stimulator. - Constitutional Vitals: Temp Pulse Resp BP Pulse Ox 98.9 F 63 16 119/70 94 08/11/17 07:31 08/11/17 07:31 08/11/17 07:31 08/11/17 07:31 08/11/17 07:31 General appearance: Present: A&O X 3, pleasant, no acute distress, answers questions appropriately - Head Head exam: Present: atraumatic, normocephalic - Eye Eye exam: Present: PERRL, conjuntiva pink, sclera anicteric Pupils: Present: PERRL - Neck Neck exam general surgery: Present: supple, trachea midline. Absent: lymphadenopathy - Respiratory Respiratory exam: Present: CTAB. Absent: accessory muscle use, rales, rhonchi, wheezes - Cardiovascular Cardiovascular exam: Present: RRR, +S1, +S2. Absent: diastolic murmur, gallop, rubs, systolic murmur - GI/Abdominal GI/Abdominal exam: Present: normal bowel sounds, soft, no peritoneal signs. Absent: distended, tenderness - Extremities Exam Extremities exam: Present: warm, radial pulses palpable and symmetrical. Absent : calf tenderness, cyanotic, pedal edema - Neurological Exam Neurological exam: Present: CN II-XII intact, oriented X3. Absent: pronater drift, facial droop, speech deficit Additional comments: Left hemiparesis with MS 3/5 and RE 5/5. - Skin Skin exam: Present: dry, intact Internal Medicine: Result - Labs CBC & Chem 7: 08/07/17 04:45 08/07/17 04:45 - ABG Interpretation ABG results: PT/INR, D-dimer PT 12.3 Seconds (9.4-12.1) H 07/19/17 05:30 - VTE Documentation of Mechanical Device: Intermittent pneumatic compression device Consult Discharge Plan - Plan Referrals: Kisha Garcia DO [Primary Care Provider] - Arslan Perkins DO [Non-Partnered Physician] - 08/07/17 (appt with Dr. Perkins on 08/07 )
[2017-08-11] MEDS: Melatonin 3 MG TABLET PO PRN (20:25)
--- NOTE | 2017-08-12 09:36 | Internal Med Progress Note ---
Date of Encounter: 08/12/17 Time of Encounter: 09:34 - Assessment and plan (1) CVA (cerebral vascular accident) Current Visit: Yes Status: Chronic Qualifiers: CVA mechanism: occlusion Precerebral and cerebral artery: unspecified precerebral artery Qualified Code(s): I63.20 - Cerebral infarction due to unspecified occlusion or stenosis of unspecified precerebral arteries (2) Urinary incontinence Current Visit: Yes Status: Chronic Qualifiers: Urinary Incontinence type: unspecified incontinence Qualified Code(s): R32 - Unspecified urinary incontinence (3) Physical deconditioning Current Visit: Yes Status: Acute - Subjective Interval history: No new complains feels well no weakness improving her ability to do things via rehab - Constitutional Vitals: Temp Pulse Resp BP Pulse Ox 98.1 F 61 16 146/87 94 08/12/17 07:08 08/12/17 07:08 08/11/17 19:30 08/12/17 07:08 08/12/17 07:08 General appearance: Present: A&O X 3, pleasant, no acute distress, answers questions appropriately - Head Head exam: Present: atraumatic - Eye Eye exam: Present: EOMI, PERRL - Neck Neck exam general surgery: Present: supple. Absent: nuchal rigidity - Respiratory Respiratory exam: Absent: respiratory distress, rhonchi, stridor, wheezes - Cardiovascular Cardiovascular exam: Present: irregular rhythm, RRR, +S1. Absent: JVD, +S2 - GI/Abdominal GI/Abdominal exam: Present: normal bowel sounds, soft. Absent: guarding, rebound, rigid - Extremities Exam Extremities exam: Absent: pedal edema, tenderness - Neurological Exam Additional comments: deficit as before Internal Medicine: Result - Labs CBC & Chem 7: 08/07/17 04:45 08/07/17 04:45 - ABG Interpretation ABG results: PT/INR, D-dimer PT 12.3 Seconds (9.4-12.1) H 07/19/17 05:30 - VTE Documentation of Mechanical Device: Intermittent pneumatic compression device Consult Discharge Plan - Plan Referrals: Kisha Garcia DO [Primary Care Provider] - Arslan Perkins DO [Non-Partnered Physician] - 08/07/17 (appt with Dr. Perkins on 08/07 )
[2017-08-12] MEDS: Magnesium Oxide 400 MG TABLET PO SCH (10:05)
[2017-08-12] MEDS: Melatonin 3 MG TABLET PO PRN (19:56)
[2017-08-12] MEDS: *HR* OxyCODONE/APAP 5/325 TABLET PO PRN (21:12)
[2017-08-12] MEDS ORDERED: Melatonin 3 MG TABLET PO PRN (22:15)
--- NOTE | 2017-08-13 09:12 | Internal Med Progress Note ---
Date of Encounter: 08/13/17 Time of Encounter: 09:10 - Assessment and plan (1) CVA (cerebral vascular accident) Current Visit: Yes Status: Chronic Assessment and plan: stable no acute changes getting her rehab Qualifiers: CVA mechanism: occlusion Precerebral and cerebral artery: unspecified precerebral artery Qualified Code(s): I63.20 - Cerebral infarction due to unspecified occlusion or stenosis of unspecified precerebral arteries (2) Urinary incontinence Current Visit: Yes Status: Chronic Assessment and plan: stable uses diapers Qualifiers: Urinary Incontinence type: unspecified incontinence Qualified Code(s): R32 - Unspecified urinary incontinence (3) Physical deconditioning Current Visit: Yes Status: Acute Assessment and plan: continues to get rehab and seems to be improving her overall medical condition is s table - Subjective Interval history: No new complains feels well no weakness improving her ability to do things via rehab. slept well overall she feels well - Constitutional Vitals: Temp Pulse Resp BP Pulse Ox 98.2 F 73 16 129/74 90 08/13/17 07:00 08/13/17 07:00 08/13/17 07:00 08/13/17 07:00 08/13/17 07:00 General appearance: Present: A&O X 3, pleasant, no acute distress, answers questions appropriately - Head Head exam: Present: atraumatic - Eye Eye exam: Present: EOMI, PERRL Pupils: Present: PERRL - Neck Neck exam general surgery: Present: supple. Absent: tenderness, nuchal rigidity - Respiratory Respiratory exam: Present: CTAB. Absent: chest wall tenderness, decreased breath sounds, rales, respiratory distress, rhonchi, stridor, wheezes - Cardiovascular Cardiovascular exam: Present: RRR, +S1, +S2. Absent: clicks, gallop, irregular rhythm, JVD - GI/Abdominal GI/Abdominal exam: Present: normal bowel sounds, pulsatile mass, soft. Absent: distended, firm, guarding, rebound, rigid, tenderness - Extremities Exam Extremities exam: Present: radial pulses palpable and symmetrical. Absent: pedal edema, tenderness, warm - Neurological Exam Neurological exam: Present: oriented X3, facial droop. Absent: speech deficit Additional comments: left side weakness as before no new change Internal Medicine: Result - Labs CBC & Chem 7: 08/07/17 04:45 08/07/17 04:45 - ABG Interpretation ABG results: PT/INR, D-dimer PT 12.3 Seconds (9.4-12.1) H 07/19/17 05:30 - VTE Documentation of Mechanical Device: Intermittent pneumatic compression device Consult Discharge Plan - Plan Referrals: Kisha Garcia DO [Primary Care Provider] - Arslan Perkins DO [Non-Partnered Physician] - 08/07/17 (appt with Dr. Perkins on 08/07 )
[2017-08-13] MEDS: Magnesium Oxide 400 MG TABLET PO SCH (09:58)
[2017-08-14] MEDS: Acetaminophen 325 MG TABLET PO PRN ×3 (04:34→23:54)
[2017-08-14 05:44] LABS: Basophils % 0.6 %; Eosinophils # 0.4 K/mcL (0.0-0.6); Eosinophils % 12.1 %; Hematocrit 39.9 % (35.3-44.9); Hemoglobin 12.7 g/dL (11.5-15.4); Immature Granulocytes % 0.3 % (0-4); Lymphocytes # 0.7 K/mcL (0.6-4.6); Lymphocytes % 19.8 %; Mean Corpuscular HGB Conc 31.8 g/dL (31.6-35.5); Mean Corpuscular Hemoglobin 29.8 pg (28.0-33.3); Mean Corpuscular Volume 93.7 fL (83.0-100.0); Mean Platelet Volume 11.2 fL (9.4-12.4); Monocytes # 0.5 K/mcL (0.0-1.3); Monocytes % 14.1 %; Neutrophils # 1.9 K/mcL (1.6-8.9); Platelet Count 203 K/mcL (140-400); Red Blood Count 4.26 M/mcL (3.82-4.97); Red Cell Distribution Width 16.3 % (11.5-14.5); Segmented Neutrophils % 53.1 %
[2017-08-14 05:55] LABS: BUN/Creatinine Ratio 21 (6-26); Blood Urea Nitrogen 12 mg/dL (8-23); Calcium 9.4 mg/dL (8.6-10.3); Carbon Dioxide 31 mEq/L (23-29); Chloride 102 mEq/L (98-107); Glucose 118 mg/dL (70-105); Osmolality,Calculated 287 (280-300); Potassium 3.4 mEq/L (3.5-5.1); Sodium 138 mEq/L (136-145); eGFR For African Americans > 60 (> 60); eGFR For Non-African Americans > 60 (> 60)
[2017-08-14 06:36] LABS: Bilirubin,Urine Negative (Negative); Blood,Urine Trace-intact (Negative); Clarity,Urine Cloudy (Clear); Color,Urine Yellow (Yellow); Glucose,Urine (UA) Normal (Normal); Ketones,Urine Negative (Negative); Leukocyte Esterase,Urine Moderate (Negative); Nitrite,Urine Positive (Negative); PH,Urine 5.5 pH Units (5.0-8.0); Protein,Urine Trace mg/dL (Neg-Trace); Specific Gravity,Urine >= 1.030 (1.010-1.025); Urobilinogen,Urine Normal (Normal)
[2017-08-14 06:54] LABS: Bacteria,Urine Many per hpf (None-Few); RBC,Urine 15-30 per hpf (0-3); Squamous Epithelial Cell,Urine Few per lpf (None-Few); WBC,Urine TNTC per hpf (0-3)
[2017-08-14] MEDS: Magnesium Oxide 400 MG TABLET PO SCH (09:40)
--- NOTE | 2017-08-14 15:29 | Internal Med Progress Note ---
Date of Encounter: 08/14/17 Time of Encounter: 15:27 - Assessment and plan (1) CVA (cerebral vascular accident) Current Visit: Yes Status: Chronic Assessment and plan: old CVA with left hemiplegia. no new neuro deficits at this time. Qualifiers: CVA mechanism: occlusion Precerebral and cerebral artery: unspecified precerebral artery Qualified Code(s): I63.20 - Cerebral infarction due to unspecified occlusion or stenosis of unspecified precerebral arteries (2) Physical deconditioning Current Visit: Yes Status: Acute Assessment and plan: continue PT/OT. will follow progress. (3) Right sided sciatica Current Visit: Yes Status: Acute Assessment and plan: improving. continue therapy and percocet for pain as needed. - Time Spent With Patient less than 15 minutes - Subjective Interval history: Participating well with therapy. sciatica pain improving. States bowel movement last night. Denies any other new issues at this time. Left hemiplegia from old CVA. Maintaining appetite and hydration. at beside. - Constitutional Vitals: Temp Pulse Resp BP Pulse Ox 97.8 F 67 16 138/77 91 08/14/17 07:00 08/14/17 07:00 08/14/17 07:00 08/14/17 07:00 08/14/17 07:00 General appearance: Present: A&O X 3, pleasant, no acute distress, answers questions appropriately - Head Head exam: Present: atraumatic, normocephalic - Eye Eye exam: Present: PERRL, conjuntiva pink, sclera anicteric Pupils: Present: PERRL - Neck Neck exam general surgery: Present: supple, trachea midline. Absent: lymphadenopathy - Respiratory Respiratory exam: Present: CTAB. Absent: accessory muscle use, rales, rhonchi, wheezes - Cardiovascular Cardiovascular exam: Present: RRR, +S1, +S2. Absent: diastolic murmur, gallop, rubs, systolic murmur - GI/Abdominal GI/Abdominal exam: Present: normal bowel sounds, soft, no peritoneal signs. Absent: distended, tenderness - Extremities Exam Extremities exam: Present: warm, radial pulses palpable and symmetrical. Absent : calf tenderness, cyanotic, pedal edema - Neurological Exam Neurological exam: Present: CN II-XII intact, oriented X3, no focal deficits. Absent: pronater drift, facial droop, speech deficit - Skin Skin exam: Present: dry, intact Internal Medicine: Result - Labs CBC & Chem 7: 08/14/17 04:55 08/14/17 04:55 Labs: Short CBC 08/14/17 Range/Units 04:55 WBC 3.5 L (4.3-11.1) K/mcL Hgb 12.7 (11.5-15.4) g/dL Hct 39.9 (35.3-44.9) % Plt Count 203 (140-400) K/mcL Neutrophils # 1.9 (1.6-8.9) K/mcL BMP 08/14/17 04:55 Sodium 138 Potassium 3.4 L Chloride 102 Carbon Dioxide 31 H BUN 12 Creatinine 0.56 L Glucose 118 H Calcium 9.4 Urine 08/14/17 Range/Units 04:30 Urine Color Yellow (Yellow) Urine Clarity Cloudy A (Clear) Urine pH 5.5 (5.0-8.0) pH Units Ur Specific [place] >= 1.030 H (1.010-1.025) Urine Protein Trace (Neg-Trace) mg/dL Urine Glucose (UA) Normal (Normal) mg/dL - ABG Interpretation ABG results: PT/INR, D-dimer PT 12.3 Seconds (9.4-12.1) H 07/19/17 05:30 - VTE Documentation of Mechanical Device: Intermittent pneumatic compression device Consult Discharge Plan - Plan Referrals: Kisha Garcia DO [Primary Care Provider] - Arslan Perkins DO [Non-Partnered Physician] - 08/07/17 (appt with Dr. Perkins on 08/07 )
[2017-08-15 06:17] LABS: BUN/Creatinine Ratio 13 (6-26); Blood Urea Nitrogen 8 mg/dL (8-23); Calcium 9.6 mg/dL (8.6-10.3); Carbon Dioxide 32 mEq/L (23-29); Chloride 103 mEq/L (98-107); Glucose 117 mg/dL (70-105); Magnesium 2.1 mg/dL (1.6-2.6); Osmolality,Calculated 287 (280-300); Potassium 3.9 mEq/L (3.5-5.1); Sodium 139 mEq/L (136-145); eGFR For African Americans > 60 (> 60); eGFR For Non-African Americans > 60 (> 60)
--- NOTE | 2017-08-15 13:00 | Internal Med Progress Note ---
Date of Encounter: 08/15/17 Time of Encounter: 12:58 - Assessment and plan (1) CVA (cerebral vascular accident) Current Visit: Yes Status: Chronic Assessment and plan: old CVA with left hemiplegia. no new neuro deficits at this time. Qualifiers: CVA mechanism: occlusion Precerebral and cerebral artery: unspecified precerebral artery Qualified Code(s): I63.20 - Cerebral infarction due to unspecified occlusion or stenosis of unspecified precerebral arteries (2) Physical deconditioning Current Visit: Yes Status: Acute Assessment and plan: continue PT/OT. will follow progress. (3) Right sided sciatica Current Visit: Yes Status: Acute Assessment and plan: improving. continue therapy and percocet for pain as needed. (4) Right knee pain Current Visit: Yes Status: Acute Assessment and plan: will discus with therapy to assist diagnose issue. will follow. Qualifiers: Chronicity: acute Qualified Code(s): M25.561 - Pain in right knee - Time Spent With Patient less than 15 minutes - Subjective Interval history: Participating well with therapy. sciatica pain improving. Pain is located knee to toe area on right side. States 6\10 scale. Will discuss with therapy. Does not want to take Percocet. States slept well last night. Bowels moving as normal maintaining appetite and hydration. Propelling self in wheelchair and hallway. - Constitutional Vitals: Temp Pulse Resp BP Pulse Ox 98.0 F 61 18 149/71 95 08/15/17 07:57 08/15/17 07:57 08/15/17 07:57 08/15/17 07:57 08/15/17 07:57 General appearance: Present: A&O X 3, pleasant, no acute distress, answers questions appropriately - Head Head exam: Present: atraumatic, normocephalic - Eye Eye exam: Present: PERRL, conjuntiva pink, sclera anicteric Pupils: Present: PERRL - Neck Neck exam general surgery: Present: supple, trachea midline. Absent: lymphadenopathy - Respiratory Respiratory exam: Present: CTAB. Absent: accessory muscle use, rales, rhonchi, wheezes - Cardiovascular Cardiovascular exam: Present: RRR, +S1, +S2. Absent: diastolic murmur, gallop, rubs, systolic murmur - GI/Abdominal GI/Abdominal exam: Present: normal bowel sounds, soft, no peritoneal signs. Absent: distended, tenderness - Extremities Exam Extremities exam: Present: warm, radial pulses palpable and symmetrical. Absent : calf tenderness, cyanotic, pedal edema Additional comments: left hemiplegia. - Neurological Exam Neurological exam: Present: CN II-XII intact, oriented X3, no focal deficits. Absent: pronater drift, facial droop, speech deficit - Skin Skin exam: Present: dry, intact Internal Medicine: Result - Labs CBC & Chem 7: 08/14/17 04:55 08/15/17 05:20 Labs: BMP 08/15/17 05:20 Sodium 139 Potassium 3.9 Chloride 103 Carbon Dioxide 32 H BUN 8 Creatinine 0.60 Glucose 117 H Calcium 9.6 - ABG Interpretation ABG results: PT/INR, D-dimer PT 12.3 Seconds (9.4-12.1) H 07/19/17 05:30 - VTE Documentation of Mechanical Device: Intermittent pneumatic compression device Consult Discharge Plan - Plan Referrals: Kisha Garcia DO [Primary Care Provider] - Arslan Perkins DO [Non-Partnered Physician] - 08/07/17 (appt with Dr. Perkins on 08/07 )
[2017-08-15] MEDS: Magnesium Oxide 400 MG TABLET PO SCH ×2 (13:04→13:51)
[2017-08-15] MEDS: Acetaminophen 325 MG TABLET PO PRN (13:04)
[2017-08-15] MEDS: Amoxicillin 500 MG CAPSULE PO SCH (19:57)
[2017-08-16 07:33] VITALS: BP 1447/85
[2017-08-16] MEDS: Acetaminophen 325 MG TABLET PO PRN (08:36)
[2017-08-16] MEDS: Magnesium Oxide 400 MG TABLET PO SCH (08:37)
[2017-08-16] MEDS: Amoxicillin 500 MG CAPSULE PO SCH ×2 (08:37→15:12)
--- NOTE | 2017-08-16 12:02 | Physician Discharge Referral ---
[facility] Referral Info Transfer To: [facility] Provider in Charge after Transfer: PCP Institutional Level of Care: Skilled - Diagnosis (1) CVA (cerebral vascular accident) Priority: Primary Status: Chronic (2) Physical deconditioning Priority: Primary Status: Acute (3) Right sided sciatica Priority: Primary Status: Acute (4) Right knee pain Priority: Primary Status: Acute Prognosis: Fair - Transfer Medications Home Medications: Atorvastatin Calcium [Lipitor] 80 mg PO DAILY 12/22/16 [History] Gluc HCl/Csa/Collagen/Hyalur A [Glucosamine Chondroitin Cap] 1 cap PO BID [History] Omeprazole [PriLOSEC] 20 mg PO DAILY 12/22/16 [History] Magnesium 500 mg PO DAILY 07/18/17 [History] Oxybutynin 10 mg PO DAILY 07/18/17 [History] Percocet 5-325 mg Tablet 1 tab PO Q6H PRN 07/18/17 [History] Allergies/Adverse Reactions: 3 Allergy/AdvReac Type Severity Reaction Status Date / Time No Known Allergies Allergy Verified 12/22/16 19:44 - Respiratory Orders Smoking Cessation: Smoking cessation has been advised. For more information, call the [place] Tobacco Quit Line at 0-805-BDUSNOW. - Advance Directives Code Status: Full Code - Mobility Orders Chair - Rehabiliation Orders Rehab Potential: Fair Rehab Orders: Evaluation for Physical Therapy, Evaluation for Occupational Therapy - Diet Orders Regular CERTIFICATION: I certify that the transfer of the above named patient to an Extended Care Facility is necessary for the continuing treatment of the diagnosis listed. The above information is true and accurate reflection of patient's current condition. Confidential - Redisclosure prohibited without a patient's written consent.
--- NOTE | 2017-08-16 14:58 | Discharge Summary ---
Orders not resulted at time of discharge: Pending orders 08/21/17 04:00 Basic Metabolic Panel MO Complete Blood Count [HEME] MO 08/28/17 04:00 Basic Metabolic Panel MO Complete Blood Count [HEME] MO 09/04/17 04:00 Basic Metabolic Panel MO Complete Blood Count [HEME] MO 09/11/17 04:00 Basic Metabolic Panel MO Complete Blood Count [HEME] MO 09/18/17 04:00 Basic Metabolic Panel MO Complete Blood Count [HEME] MO 09/25/17 04:00 Basic Metabolic Panel MO Complete Blood Count [HEME] MO Date of Encounter: 08/16/17 Time of Encounter: 14:56 - Discharge Diagnosis (1) CVA (cerebral vascular accident) Priority: Secondary Status: Chronic Comments: CVA in fall of 2016, left hemiplegia. no new neuro deficit. Qualifiers: CVA mechanism: occlusion Precerebral and cerebral artery: unspecified precerebral artery Qualified Code(s): I63.20 - Cerebral infarction due to unspecified occlusion or stenosis of unspecified precerebral arteries (2) Physical deconditioning Priority: Primary Status: Acute Comments: discharge to ECF. (3) Right sided sciatica Priority: Secondary Status: Acute Comments: improving Hospital course: Ms. Rodriguez is a 71 year old female with hx of CVA in fall 2016 with left hemiplegia. Admitted recently for physical deconditioning. Issues with right- sided sciatica improving. After bladder stimulator was removed due to hematoma development. Patient has not been taking any pain medicine has stated pain has been improving. Discharging to ECF today. Discharge discussed with: patient - Time Spent with Patient Total time spent providing and/or coordinating discharge services: Less than 30 minutes - Discharge Medications Home Medications: Atorvastatin Calcium [Lipitor] 80 mg PO DAILY 12/22/16 [History] Gluc HCl/Csa/Collagen/Hyalur A [Glucosamine Chondroitin Cap] 1 cap PO BID [History] Omeprazole [PriLOSEC] 20 mg PO DAILY 12/22/16 [History] Oxybutynin 10 mg PO DAILY 07/18/17 [History] Acetaminophen [Tylenol] 650 mg PO Q6H PRN tablet 08/16/17 [Rx] Artificial Tears SOLN [Akwa Tears] 1 drop BOTH EYES QID PRN bottle 08/16/17 [Rx ] Atorvastatin [Lipitor] 80 mg PO DAILY tablet 08/16/17 [Rx] DULoxetine [Cymbalta] 30 mg PO QPM capsule. 08/16/17 [Rx] Docusate [Colace] 100 mg PO BID capsule 08/16/17 [Rx] Magnesium Oxide [Mag-Ox] 400 mg PO DAILY tablet 08/16/17 [Rx] Melatonin 6 mg PO HS PRN tablet 08/16/17 [Rx] Polyethylene Glycol 3350 [MiraLAX] 17 gm PO DAILY powd.pack 08/16/17 [Rx] Potassium Chloride 40 meq PO TID tab.er.prt 08/16/17 [Rx] Allergies/Adverse Reactions: 3 Allergy/AdvReac Type Severity Reaction Status Date / Time No Known Allergies Allergy Verified 12/22/16 19:44 Date of admission: 07/18/17 19:55 Primary care physician: Kisha Garcia Consults: 07/18/17 21:24 Consult to Occupational Therapy [CONS] Routine Comment: eval and treat Reason for Consult: weakness; left flaccid Does patient have active BEDREST order?: No Is patient medically & hemodynamically stable?: Yes Patient assessed for mobility or mobilized this visit?: No Consult to Physical Therapy [CONS] Routine Comment: eval and treat Reason for Consult: weakness: left flaccid Does patient have active BEDREST order?: No Is patient medically & hemodynamically stable?: Yes Patient assessed for mobility or mobilized this visit?: No Consult to Recreational Therapy [CONS] Routine Comment: Consult to Yard Spotter [CONS] Routine Reason for SW Consult: eval and treat Discharging clinician: Alfred Floyd Anticipated date of discharge: 08/16/17 - Constitutional Vitals: Temp Pulse Resp BP Pulse Ox 98.0 F 72 15 1447/85 94 08/16/17 07:00 08/16/17 07:00 08/16/17 07:00 08/16/17 07:00 08/16/17 07:00 General appearance: Present: A&O X 3, pleasant, no acute distress, answers questions appropriately - Head Head exam: Present: atraumatic, normocephalic - Eye Eye exam: Present: PERRL, conjuntiva pink, sclera anicteric Pupils: Present: PERRL - Neck Neck exam general surgery: Present: supple, trachea midline. Absent: lymphadenopathy - Respiratory Respiratory exam: Present: CTAB. Absent: accessory muscle use, rales, rhonchi, wheezes - Cardiovascular Cardiovascular exam: Present: RRR, +S1, +S2. Absent: diastolic murmur, gallop, rubs, systolic murmur - GI/Abdominal GI/Abdominal exam: Present: normal bowel sounds, soft, no peritoneal signs. Absent: distended, tenderness - Extremities Exam Extremities exam: Present: warm, radial pulses palpable and symmetrical. Absent : calf tenderness, cyanotic, pedal edema Additional comments: Left hemiplegia - Neurological Exam Neurological exam: Present: CN II-XII intact, oriented X3, no focal deficits. Absent: pronater drift, facial droop, speech deficit - Skin Skin exam: Present: dry, intact - Patient Status Disposition: Transfer SNF Condition: Good Functional capacity at discharge: wheelchair bound Overall status at discharge: patient is progressing back to baseline - Discharge Instructions Follow Up With: Kisha Garcia DO [Primary Care Provider] - Arslan Perkins DO [Non-Partnered Physician] - 08/07/17 (appt with Dr. Perikns on 08/07 ) - Diet and Activity Activity: as per physical therapy Diet: advance to your usual diet - VTE Documentation of Mechanical Device: Intermittent pneumatic compression device
== END 2017-08-16 16:30 | DRG 57 ==
LOC: INPGRE 19:55